=== PATIENT | male | born 1945 | race Caucasian/White ===

== ENCOUNTER 2016-04-18 00:30 | Emergency (ER) | payer MEDICARE, OTHER ==
[2016-04-18 00:40] VITALS: BP 142/77
[2016-04-18] MEDS ORDERED: Sodium Chloride 0.9% 10 ML Syringe FLUSH PRN (01:03)
[2016-04-18] MEDS ORDERED: Ondansetron 4 MG/2 ML SDV IVPUSH ONE (01:05)
[2016-04-18] MEDS ORDERED: Sodium Chloride 0.9% 1,000 ML IV ONE (01:05)
[2016-04-18] MEDS ORDERED: GI Cocktail Oral Solution 30 ML PO ONE (01:06)
[2016-04-18] MEDS ORDERED: Famotidine 20 MG Tab PO ONE (01:07)
[2016-04-18 01:45] LABS: BASOPHILS PERCENT AUTO 0.1 % (0.2-1.2); EOSINOPHILS PERCENT AUTO 0.1 % (0.0-4.0); HEMATOCRIT 41.6 % (40.0-52.0); HEMOGLOBIN 14.2 g/dL (14.0-18.0); LYMPHOCYTES PERCENT AUTO 4.3 % (25.0-50.0); MEAN CORPUSCULAR HGB CONC 34.1 g/dL (32.0-36.0); MEAN CORPUSCULAR VOLUME 90.8 fL (78.0-93.0); MONOCYTES PERCENT AUTO 5.3 % (2.0-11.0); RDW CV 13.2 % (10.0-15.0); RED BLOOD CELL COUNT 4.58 x10^6/uL (4.5-6.0)
[2016-04-18 02:01] LABS: PROTHROMBIN TIME 11.6 SEC (10.0-12.8)
[2016-04-18 02:03] LABS: NEUTROPHILS PERCENT AUTO 90.2 % (50.0-80.0)
[2016-04-18 02:16] LABS: A/G RATIO 0.86; ALBUMIN 3.2 g/dL (3.4-5.0); ALKALINE PHOSPHATASE 56 U/L (46-116); AMYLASE 30 U/L (25-115); BILIRUBIN TOTAL 0.5 mg/dL (0.2-1.0); CALCIUM 7.8 mg/dL (8.5-10.1); CHLORIDE,CL 97 mmol/L (98-107); CORRECTED CALCIUM 8.44 mg/dL (8.5-10.1); CREATININE 1.1 mg/dL (0.70-1.30); EST CRCL DRUG DOSING (CG) 61.76 mL/min; ESTIMATED GFR > 60; GLUCOSE RANDOM 114 mg/dL (74-106)
[2016-04-18 02:17] LABS: CKMB 0.8 ng/mL (0.0-3.6)
--- NOTE | 2016-04-18 03:34 | ER ---
Date of Service: 04/18/2016 SUBJECTIVE: The patient presents to the emergency room with complaints of burning sensation in his epigastrium, chest as well as vomiting and diarrhea. The patient states that he began experiencing diarrhea and vomiting over the past 24-48 hours. He states that his diarrhea has improved, but he began experiencing a burning sensation in his chest and abdomen. He states that he did try to take some Tums and drink some soda, but this did not help with his discomfort. The patient states that he has not noticed any blood in his stools. He has not noticed any dark or tarry stools. He states that he has experienced burning sensation in his chest and abdomen before secondary to what sounds like gastroesophageal reflux disease. He states that this has been alleviated with taking [id number] preparations for GERD such as Tums. The patient states that the sensation is worse when he is lying flat. He states that he has not recently traveled out of the country. He states that he has not been checking his temperature. PAST MEDICAL HISTORY: 1. Erectile dysfunction. 2. Hypertension. MEDICATIONS: 1. Levitra 20 mg daily. 2. Enalapril/hydrochlorothiazide 08/24.5. ALLERGIES: NKDA. REVIEW OF SYSTEMS: General: No fever or chills. HEENT: No sore throat, rhinorrhea, or congestion. Respiratory: No shortness of breath. Cardiac: Denies any substernal chest pain, but again is experiencing some burning sensation in his epigastrium and chest. GI: Please see history of present illness. Denies any melena, hematochezia, or hematemesis. : Denies any dysuria. MUSCULOSKELETAL: No myalgias or arthralgias. NEUROLOGIC: No fainting or blackouts. He states that he is somewhat lightheaded especially when he stands. PHYSICAL EXAMINATION: General: This is a 71-year-old male patient in no acute distress. Vital Signs: Blood pressure is 142/77, pulse rate is 100, temperature is 36.9, respiratory rate 16, O2 saturations 99%. Skin: Warm, pink, and dry. HEENT: Head is normocephalic, atraumatic. Eyes, PERRLA. Extraocular movements are intact. Mouth, oral mucosa is moist. No erythema or exudate noted in the hypopharynx. Neck: Supple. No masses. There is no lymphadenopathy. Lungs: Clear to auscultation. Heart: Regular rate and rhythm. Normal S1, S2. No S3, S4, clicks, or rubs. Unable to re produce pain with deep palpation of the chest. Abdomen: Soft, mildly tender to palpation of the epigastrium. There are no masses noted. There is no hepatosplenomegaly noted. Extremities: Without edema. Neurologic: He is alert and oriented, answers all questions appropriately. His speech is fluent. His gait is within normal limits. EKG: A 12-lead EKG was obtained showing a sinus rhythm without any acute ST or T-wave abnormalities. LABORATORY DATA: WBCs 11.4, hemoglobin is 14.2, platelets are 243. PT is 11.6, INR is 1.0. Chemistry; sodium is 134, potassium is 3.4, chloride is 97, bicarb is 25, BUN is 22, creatinine is 1.1. Creatinine clearance is 61.76. GFR is greater than 60. Glucose is 114, calcium is 7.8, corrected calcium is 8.44. Total bilirubin is 0.5. AST is 22, ALT is 14, alkaline phosphatase is 56, CK is 125, CK-MB is 0.8. Troponin is 0.00. Total protein is 6.9. Albumin is 3.2, globulin is 3.7, amylase is 30. Flat and upright abdominal series with 1 view chest x-ray was obtained. There was no evidence of any obvious acute pathology. He did have evidence of some scarring to his lungs consistent with a history of tobacco abuse, he is currently not smoking at this time. EMERGENCY ROOM COURSE: IV access was established. He was given Zofran 4 mg IV. He was given Pepcid 20 mg IV as well as a GI cocktail. He states that his pain was initially an 8 and he states that by the time he was being discharged, his pain was down to 1. He was also given a liter of normal saline. He remained stable in my care in the emergency room. ASSESSMENT: 1. Gastroenteritis. 2. Gastroesophageal reflux disease with esophagitis. PLAN: The patient will be discharged. I did start him on Zofran ODT 4 mg, 1 p.o. q.8 hours. Also advised him to begin taking Prilosec OTC 20 mg twice daily. I would like him to follow up in the clinic in the next 7-10 days. He is to return in the emergency room if he notices any blood in his vomit, any dark tarry stools, or if he is experiencing any increased discomfort, chest pain, shortness of breath, lightheadedness or if he is unable to keep down fluids. All questions were answered. MWK: 04/18/2016 02:50:44 MODL: 04/18/2016 03:25:04 /[id number]
== END 2016-04-18 02:45 | disposition home or self-care (01) ==
LOC: VM.ED 00:30
DX: K52.9 Noninfective gastroenteritis and colitis, unspecified (principal); K21.0 Gastro-esophageal reflux disease with esophagitis; I10 Essential (primary) hypertension; Z79.899 Other long term (current) drug therapy
CPT/HCPCS: 74022; 80053; 82150; 82550; 82553; 84484; 85025; 85610; 93005; 96361; 96374; 99284; A9270; J2405; J7030

== ENCOUNTER 2016-07-21 10:38 | Emergency (ER) | payer MEDICARE, OTHER ==
--- NOTE | 2016-07-21 11:58 | EDM.PDOC ---
ED HPI GENERAL MEDICAL PROBLEM - General Chief Complaint: General Stated Complaint: dizziness Time Seen by Provider: 07/21/16 11:15 Source of Information: Reports: Patient, Family, RN, RN notes reviewed History Limitations: Reports: No limitations - History of Present Illness INITIAL COMMENTS - FREE TEXT/NARRATIVE: Patient presents to the emergency room at [facility] complaining of dizziness. The patient states that the sudden onset of dizziness began one hour prior to presentation. The patient denies any positional complaints the patient has no history of syncope or near syncope. The patient has hypertension but has been well controlled. The patient denies any shortness of breath or chest pain. The patient denies any vertigo symptoms. Onset: today, sudden Onset Date: 07/21/16 Duration: Resolved prior to arrival Location: Reports: head - Related Data Allergies Allergy/AdvReac Type Severity Reaction Status Date / Time No Known Allergies Allergy Verified 07/21/16 10:58 Home Meds: Home Meds Tadalafil [Cialis] 20 mg PO DAILY PRN 08/12/14 [History] Vardenafil HCl [Levitra] 20 mg PO DAILY 04/18/16 [History] Enalapril/Hydrochlorothiazide [Enalapril-HCTZ 5-12.5 MG] 1 each PO DAILY [History] Past Medical History Cardiovascular History: Reports: Hypertension Oncologic (Cancer) History: Reports: Prostate Social & Family History - Tobacco Use Smoking Status *Q: Former Smoker Years of Tobacco use: 30 Used Tobacco, but Quit: Yes Second Hand Smoke Exposure: Yes - Alcohol Use Days Per Week of Alcohol Use: 0 - Recreational Drug Use Recreational Drug Use: No Drug Use in Last 12 Months: No ED ROS GENERAL - Review of Systems Review Of Systems: See Below Constitutional: Denies: fever, chills, weakness Respiratory: Denies: Shortness of Breath, Cough Cardiovascular: Denies: Chest pain, Palpitations GI/Abdominal: Denies: Abdominal pain, Nausea, Vomiting Skin: Reports: no symptoms Neurological: Reports: Dizziness. Denies: Headache, Numbness, Paresthesia, Tingling ED EXAM, GENERAL - Physical Exam Exam: See Below Exam Limited By: No limitations General Appearance: alert, no apparent distress Eye Exam: bilateral eye: EOMI, normal inspection, PERRL Ears: normal external exam, normal canal, hearing grossly normal, normal TMs Ear Exam: bilateral ear: TM normal Neck: supple Respiratory/Chest: no respiratory distress, lungs clear, normal breath sounds Cardiovascular: regular rate, rhythm GI/Abdominal: normal bowel sounds, soft, non tender Neurological: alert, oriented, normal cognition, no motor/sensory deficits Skin Exam: Warm, Dry, Intact, Normal color, No rash EKG INTERPRETATION EKG Date: 07/21/16 Time: 11:30 Rhythm: NSR Rate (beats/min): 48 [place]: normal P-wave: present QRS: normal ST-T: normal QT: normal MO/PQ Interval: 0.18 Comparison: NA - no prior EKG EKG Interpretation Comments: 1. Sinus Bradycardia Course - Vital Signs Last Recorded V/S: Last Vital Signs Temp 36.1 C 07/21/16 10:45 Pulse 61 07/21/16 11:42 Resp 12 07/21/16 11:42 BP 151/68 H 07/21/16 11:42 Pulse Ox 98 07/21/16 11:42 - Orders/Labs/Meds Orders: Active Orders 24 hr Category Date Time Status EKG 12 Lead [EKG Documentation Completion] [RC] STAT Care 07/21/16 11:29 Active Departure - Departure Time of Disposition: 11:56 Disposition: Home, Self-Care 01 Condition: good Clinical Impression: Dizziness Instructions: Dizziness Referrals: Richar Barnes MD [Primary Care Provider] - Forms: ED Department Discharge Additional Instructions: 1. Stay well hydrated and rest 2. Call Dr. Barnes on Saturday and see if you can get in - Problem List Review Problem List Initiated/Reviewed/Updated: Yes - My Orders Last 24 Hours: My Active Orders 07/21/16 11:29 EKG 12 Lead [EKG Documentation Completion] [RC] STAT - Assessment/Plan Last 24 Hours: My Active Orders 07/21/16 11:29 EKG 12 Lead [EKG Documentation Completion] [RC] STAT
== END 2016-07-21 12:00 | disposition home or self-care (01) ==
LOC: VM.ED 10:38
CPT/HCPCS: 93005; 99283-GF; 99284

== ENCOUNTER 2016-12-20 16:35 | Emergency (ER) | payer MEDICARE, OTHER ==
[2016-12-20] MEDS ORDERED: methylPREDNISolone Sodium Succinate 125 MG/2 ML SDV IM ONE (16:39)
[2016-12-20] MEDS ORDERED: diphenhydrAMINE 25 MG Cap PO ONE (16:39)
--- NOTE | 2016-12-20 16:49 | EDM.PDOC ---
ED HPI GENERAL MEDICAL PROBLEM - General Chief Complaint: Bite:Animal, Insect Stated Complaint: bee sting, vision changes Time Seen by Provider: 12/20/16 16:39 Source of Information: Reports: Patient, Family History Limitations: Reports: No Limitations - History of Present Illness INITIAL COMMENTS - FREE TEXT/NARRATIVE: Patient reports being stung on the left side of his neck by a wasp and immediately experiencing blurry vision with tingling to his hands bilaterally. Upon presentation, his eye complaints are nearly resolved, and the tingling is improving. Total time of approximately 15 minutes from sting to presentation to ER. No complaints of difficulty breathing, no SOB, no chest pain. No throat tightening. No other complaints. Onset: Today, Sudden Duration: Resolved Prior to Arrival Severity: Mild - Related Data Allergies Allergy/AdvReac Type Severity Reaction Status Date / Time No Known Allergies Allergy Verified 12/20/16 17:00 Home Meds: Home Meds Tadalafil [Cialis] 20 mg PO DAILY PRN 08/12/14 [History] Vardenafil HCl [Levitra] 20 mg PO DAILY 04/18/16 [History] Enalapril/Hydrochlorothiazide [Enalapril-HCTZ 5-12.5 MG] 1 each PO DAILY [History] Past Medical History Cardiovascular History: Reports: Hypertension Oncologic (Cancer) History: Reports: Prostate Social & Family History - Tobacco Use Smoking Status *Q: Former Smoker Years of Tobacco use: 30 Used Tobacco, but Quit: Yes Second Hand Smoke Exposure: Yes - Alcohol Use Days Per Week of Alcohol Use: 0 - Recreational Drug Use Recreational Drug Use: No Drug Use in Last 12 Months: No ED ROS GENERAL - Review of Systems Review Of Systems: See Below Constitutional: Reports: No Symptoms HEENT: Reports: Other (vision blurriness) Respiratory: Reports: No Symptoms Cardiovascular: Reports: No Symptoms Endocrine: Reports: No Symptoms GI/Abdominal: Reports: No Symptoms : Reports: No Symptoms Musculoskeletal: Reports: No Symptoms Skin: Reports: No Symptoms Neurological: Reports: Tingling (bilateral hand tingling) Psychiatric: Reports: No Symptoms Hematologic/Lymphatic: Reports: No Symptoms Immunologic: Reports: No Symptoms ED EXAM, ANIMAL BITE - Physical Exam Exam: See Below Exam Limited By: No Limitations General Appearance: Alert, WD/WN, Anxious, Mild Distress Eye Exam: Bilateral Eye: EOMI, PERRL Ears: Normal TMs Nose: Normal Inspection Throat/Mouth: Normal Inspection, Normal Oropharynx Head: Atraumatic, Normocephalic Neck: Normal Inspection Respiratory/Chest: No Respiratory Distress, Lungs Clear, Normal Breath Sounds, No Accessory Muscle Use, Chest Non-Tender Cardiovascular: Normal Peripheral Pulses, Regular Rate, Rhythm, No Edema, No Gallop, No Murmur Extremities: Normal Inspection, Normal Range of Motion, Non-Tender, Normal Capillary Refill Neurological: Alert, Oriented, CN II-XII Intact, Normal Cognition, Normal Gait, Normal Reflexes, No Motor/Sensory Deficits Psychiatric: Normal Affect, Anxious Skin Exam: Normal Color, Warm/Dry Lymphadenopathy: Bilateral: No Adenopathy Lymphatic: No Adenopathy Course - Orders/Labs/Meds Orders: Active Orders 24 hr Category Date Time Status BASIC METABOLIC PANEL,BMP [CHEM] Stat Lab 12/20/16 16:39 Ordered MAGNESIUM [CHEM] Stat Lab 12/20/16 16:39 Ordered diphenhydrAMINE [Benadryl] Med 12/20/16 16:39 Once 25 mg PO ONETIME ONE methylPREDNISolone Sod Succ [Solu-MEDROL] Med 12/20/16 16:39 Once 125 mg IM ONETIME ONE Departure - Departure Time of Disposition: 17:39 Disposition: Home, Self-Care 01 Condition: Good Clinical Impression: Bee sting reaction - Discharge Information Instructions: Anaphylactic Reaction, [id number], Bee, Wasp, or Hornet Sting Forms: ED Department Discharge Additional Instructions: You can take benadryl up to four times per day, if you want less drowsiness you can also try claritin or zyrtec. Drink plenty of water. Be aware the next time you are stung. Your reaction could be worse. Follow up with your primary provider as symptoms warrant. Please call us with any questions or concerns. - Problem List & Annotations (1) Bee sting reaction SNOMED Code(s): 683080353 Code(s): T63.441A - TOXIC EFFECT OF VENOM OF BEES, ACCIDENTAL, INIT Status : Acute Priority: Medium Current Visit: Yes Qualifiers: Encounter type: initial encounter Injury intent: undetermined intent Qualified Code(s): T63.444A - Toxic effect of venom of bees, undetermined, initial encounter - Problem List Review Problem List Initiated/Reviewed/Updated: Yes - My Orders Last 24 Hours: My Active Orders 12/20/16 16:39 BASIC METABOLIC PANEL,BMP [CHEM] Stat MAGNESIUM [CHEM] Stat diphenhydrAMINE [Benadryl] 25 mg PO ONETIME ONE methylPREDNISolone Sod Succ [Solu-MEDROL] 125 mg IM ONETIME ONE - Assessment/Plan Last 24 Hours: My Active Orders 12/20/16 16:39 BASIC METABOLIC PANEL,BMP [CHEM] Stat MAGNESIUM [CHEM] Stat diphenhydrAMINE [Benadryl] 25 mg PO ONETIME ONE methylPREDNISolone Sod Succ [Solu-MEDROL] 125 mg IM ONETIME ONE Assessment:: wasp sting Plan: You can take benadryl up to four times per day, if you want less drowsiness you can also try claritin or zyrtec. Drink plenty of water. Be aware the next time you are stung. Your reaction could be worse. Follow up with your primary provider as symptoms warrant. Please call us with any questions or concerns.
[2016-12-20 17:13] VITALS: BP 117/69
[2016-12-20 17:18] LABS: CHLORIDE,CL 100 mmol/L (98-107); SODIUM,NA 138 mmol/L (136-145)
[2016-12-20] MEDS ORDERED: Potassium Chloride 10 MEQ Tab.ER PO ONE (17:20)
[2016-12-20] MEDS ORDERED: Magnesium Chloride 64 MG Tab.ER PO ONE (17:22)
[2016-12-20] MEDS ORDERED: Potassium Chloride 20 MEQ Tab.ER PO ONE (17:33)
== END 2016-12-20 17:50 | disposition home or self-care (01) ==
LOC: VM.ED 16:35
DX: T63.441A Toxic effect of venom of bees, accidental (unintentional), initial encounter (principal); H53.8 Other visual disturbances; R20.2 Paresthesia of skin; I10 Essential (primary) hypertension; Z85.46 Personal history of malignant neoplasm of prostate; Z87.891 Personal history of nicotine dependence; Z79.899 Other long term (current) drug therapy
CPT/HCPCS: 36415; 80048; 83735; 96372; 99283; A9270; J2930

== ENCOUNTER 2017-01-25 17:16 | Emergency (ER) | payer MEDICARE, OTHER ==
[2017-01-25 17:45] VITALS: BP 121/52
--- NOTE | 2017-01-25 18:53 | EDM.PDOC ---
ED HPI GENERAL MEDICAL PROBLEM - General Chief Complaint: Laceration Time Seen by Provider: 01/25/17 17:35 Source of Information: Reports: Patient History Limitations: Reports: No Limitations - History of Present Illness INITIAL COMMENTS - FREE TEXT/NARRATIVE: Pt. 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 Pt. states that he had a tetanus update approx. 5 years ago. He denies any injury other than what is isolated to his L middle finger. Onset: Today Location: Reports: Upper Extremity, Left Severity: Mild - Related Data Allergies Allergy/AdvReac Type Severity Reaction Status Date / Time No Known Allergies Allergy Verified 01/25/17 17:48 Home Meds: Home Meds Tadalafil [Cialis] 20 mg PO DAILY PRN 08/12/14 [History] Vardenafil HCl [Levitra] 20 mg PO DAILY 04/18/16 [History] Enalapril/Hydrochlorothiazide [Enalapril-HCTZ 5-12.5 MG] 1 each PO DAILY [History] Past Medical History Cardiovascular History: Reports: Hypertension Oncologic (Cancer) History: Reports: Prostate - Past Surgical History GI Surgical History: Reports: Appendectomy Social & Family History - Tobacco Use Smoking Status *Q: Unknown Ever Smoked Years of Tobacco use: 30 Used Tobacco, but Quit: Yes Second Hand Smoke Exposure: Yes - Alcohol Use Days Per Week of Alcohol Use: 0 - Recreational Drug Use Recreational Drug Use: No Drug Use in Last 12 Months: No ED ROS GENERAL - Review of Systems Review Of Systems: See Below Constitutional: Reports: No Symptoms HEENT: Reports: No Symptoms Respiratory: Reports: No Symptoms Cardiovascular: Reports: No Symptoms Endocrine: Reports: No Symptoms GI/Abdominal: Reports: No Symptoms : Reports: No Symptoms Musculoskeletal: Reports: Other (laceration to tip of 3rd digit L hand) Skin: Reports: No Symptoms Neurological: Reports: No Symptoms Psychiatric: Reports: No Symptoms Hematologic/Lymphatic: Reports: No Symptoms Immunologic: Reports: No Symptoms ED EXAM, SKIN/RASH Exam: See Below General Appearance: Alert, No Apparent Distress Extremities: Other (2.8 cm. laceration to tip of 3rd digit L hand) ED SKIN PROCEDURES - Laceration/Wound Repair Right Middle Distal Finger Lac/Wound length In cm: 2.8 Appearance: Superficial Distal NVT: Neuro & Vascular Intact, No Tendon Injury Saline Irrigation (cc's): 1,000 (ml) Exploration/Debridement/Repair: No Foreign Material Found Closed with: Dermabond Tetanus Status Addressed: Yes Course - Vital Signs Last Recorded V/S: Last Vital Signs Temp 36.7 C 01/25/17 17:30 Pulse 88 01/25/17 17:30 Resp 14 01/25/17 17:30 BP 121/52 L 01/25/17 17:30 Pulse Ox 100 01/25/17 17:30 Departure - Departure Time of Disposition: 18:00 Disposition: Home, Self-Care 01 Condition: Good Clinical Impression: Finger laceration - Discharge Information Instructions: Tissue Adhesive Wound Care, Laceration Care, Adult Referrals: Richar Barnes MD [Primary Care Provider] - Forms: ED Department Discharge Additional Instructions: Home to rest. Keep area dry for 24 hours. Return if any redness, swelling, or discharge from the area. - Problem List & Annotations (1) Finger laceration SNOMED Code(s): 815751735 Code(s): S61.219A - LACERATION W/O FB OF UNSP FINGER W/O DAMAGE TO NAIL, INIT Status: Acute Qualifiers: Encounter type: initial encounter Finger: middle finger Damage to nail status: without damage Foreign body presence: without foreign body Laterality: left Qualified Code(s): S61.213A - Laceration without foreign body of left middle finger without damage to nail, initial encounter - Assessment/Plan Assessment:: 2.8 cm. superficial laceration to distal portion of 3rd digit L hand Plan: Keep dry for 24 hours. Keep open to air unless to anticipate the area getting dirty. Return to ER if redness, swelling, or discharge from the area.
== END 2017-01-25 18:03 | disposition home or self-care (01) ==
LOC: VM.ED 17:16
DX: S61.213A Laceration without foreign body of left middle finger without damage to nail, initial encounter (principal); I10 Essential (primary) hypertension; Z79.899 Other long term (current) drug therapy; Z90.49 Acquired absence of other specified parts of digestive tract; W31.89XA Contact with other specified machinery, initial encounter; Y99.0 Civilian activity done for income or pay
CPT/HCPCS: 12002; 99282; 99282-GF-25

== ENCOUNTER 2017-06-02 12:48 | Emergency (ER) | payer MEDICARE, OTHER ==
[2017-06-02 13:20] VITALS: BP 128/70
--- NOTE | 2017-06-02 13:26 | EDM.PDOC ---
ED HPI GENERAL MEDICAL PROBLEM - General Chief Complaint: Lower Extremity Injury/Pain Stated Complaint: KNEE Time Seen by Provider: 06/02/17 12:56 Source of Information: Reports: Patient, RN, RN Notes Reviewed History Limitations: Reports: No Limitations - History of Present Illness INITIAL COMMENTS - FREE TEXT/NARRATIVE: Patient presents the emergency room at [facility] complaining of right knee pain that has progressively gotten worse over the past 3 weeks. Patient denies any injury or trauma. The patient states the pain is located along the right lateral knee. The patient denies any trouble with ambulation. The patient denies any numbness tingling or paresthesia of the right lower extremity. The patient states he is able to ambulate normally. The patient denies any previous right knee surgeries. Otherwise no other concerns. Onset: Other (chronic) Duration: Chronic Right Knee Pain Score (Numeric/FACES): 2 - Related Data Allergies Allergy/AdvReac Type Severity Reaction Status Date / Time No Known Allergies Allergy Verified 06/02/17 13:12 Home Meds: Home Meds Tadalafil [Cialis] 20 mg PO DAILY PRN 08/12/14 [History] Vardenafil HCl [Levitra] 20 mg PO DAILY 04/18/16 [History] Enalapril/Hydrochlorothiazide [Enalapril-HCTZ 5-12.5 MG] 1 each PO DAILY [History] Past Medical History Cardiovascular History: Reports: Hypertension Oncologic (Cancer) History: Reports: Prostate - Past Surgical History GI Surgical History: Reports: Appendectomy Social & Family History - Tobacco Use Smoking Status *Q: Unknown Ever Smoked Years of Tobacco use: 30 Used Tobacco, but Quit: Yes Second Hand Smoke Exposure: Yes - Alcohol Use Days Per Week of Alcohol Use: 0 - Recreational Drug Use Recreational Drug Use: No Drug Use in Last 12 Months: No Review of Systems - Review of Systems Review Of Systems: See Below Constitutional: Denies: Chills, Fever Respiratory: Denies: Shortness of Breath, Cough Cardiovascular: Denies: Chest Pain, Palpitations Musculoskeletal: Reports: Joint Pain (Right knee) Skin: Reports: No Symptoms Neurological: Reports: No Symptoms. Denies: Dizziness, Headache, Numbness, Paresthesia, Tingling ED EXAM, GENERAL - Physical Exam Exam: See Below Exam Limited By: No Limitations General Appearance: Alert, No Apparent Distress Respiratory/Chest: No Respiratory Distress, Lungs Clear, Normal Breath Sounds Cardiovascular: Normal Peripheral Pulses, Regular Rate, Rhythm Peripheral Pulses: 2+: Radial (L), Radial (R) Extremities: Normal Inspection, Normal Range of Motion, Other (slight tenderness to palpation of right lateral knee; no obvious bone deformity; skin intact; no evidence of injury). No: Joint Swelling Neurological: Alert, Oriented Skin Exam: Warm, Dry, Intact, Normal Color, No Rash Course - Vital Signs Last Recorded V/S: Last Vital Signs Temp 36.5 C 06/02/17 13:00 Pulse 60 06/02/17 13:00 Resp 16 06/02/17 13:00 BP 128/70 06/02/17 13:00 Pulse Ox - Orders/Labs/Meds Orders: Active Orders 24 hr Category Date Time Status Knee 3V Rt [CR] Stat Exams 06/02/17 13:24 Taken - Radiology Interpretation Free Text/Narrative:: Right Knee: No evidence of fracture or dislocation See scanned report in EMR Departure - Departure Time of Disposition: 13:29 Disposition: Home, Self-Care 01 Condition: Good Clinical Impression: Right knee pain Qualifiers: Chronicity: chronic Qualified Code(s): M25.561 - Pain in right knee - Discharge Information Instructions: Knee Pain, Adult Referrals: Richar Barnes MD [Physician] - Forms: ED Department Discharge Additional Instructions: 1. Stay well hydrated and rest 2. XRay of right knee was normal 3. May alternate Tylenol/Advil as needed for pain 4. See Dr. Barnes for follow up 5. Call with any questions/concerns - Problem List Review Problem List Initiated/Reviewed/Updated: Yes - My Orders Last 24 Hours: My Active Orders 06/02/17 13:24 Knee 3V Rt [CR] Stat - Assessment/Plan Last 24 Hours: My Active Orders 06/02/17 13:24 Knee 3V Rt [CR] Stat
== END 2017-06-02 13:48 | disposition home or self-care (01) ==
LOC: VM.ED 12:48
DX: M25.561 Pain in right knee (principal); G89.29 Other chronic pain; I10 Essential (primary) hypertension; Z79.899 Other long term (current) drug therapy; Z87.891 Personal history of nicotine dependence
CPT/HCPCS: 73562-RT; 99283

== ENCOUNTER 2017-11-21 09:08 | Day surgery (SDC) | payer MEDICARE, OTHER ==
[2017-11-21] MEDS: Lactated Ringers 1,000 ML IV SCH (09:49)
[2017-11-21] MEDS ORDERED: Propofol 200 MG/20 ML SDV ONE ×2 (10:51→12:06)
[2017-11-21] MEDS ORDERED: fentaNYL 100 MCG/2 ML SDV ONE (10:51)
[2017-11-21 13:11] VITALS: BP 116/56
--- NOTE | 2017-11-22 07:50 | OR ---
SURGERY DATE: 11/21/2017. REFERRING PROVIDER: Dr. Barnes. PRE-OPERATIVE DIAGNOSIS: GERD. The patient is on Zantac over the counter once a day. POST-OPERATIVE DIAGNOSIS: About a 2 cm sliding type hiatal hernia present, otherwise normal appearing EGD. Antral biopsy taken x2 bites to check for H pylori and path. PROCEDURE: EGD with cold biopsy x1 site (antrum). SURGEON: Hemanth Stinson M.D. ANESTHESIA: Monitored anesthesia care. PROCEDURE DETAILS: Federico is a 72-year-old male, who was brought to the endoscope suite after discussion of risks and benefits (including but not limited to reaction to medication, bleeding, infection, aspiration, perforation). Informed consent was obtained for monitored anesthesia care and esophagogastroduodenoscopy along with possible biopsy and/or dilatation. Pre-procedure exam including oral cavity was unremarkable. IV, oxygen, and monitors were placed. The patient was placed in the left lateral position and sedation was administered. A bite block was placed gently and scope lightly lubricated and passed through the bite block and over the tongue. Hypopharynx and vocal cords were visualized and unremarkable. Scope was passed through the cricopharynx and into the esophagus. The scope was then passed through the distal esophagus and the GE junction was visualized and photographed. The GE junction was remarkable for about 2 cm sliding type hiatal hernia without any significant inflammation. Vocal cords were visualized and unremarkable. The scope was advanced into the stomach and gastric solis was suctioned. Pylorus was identified and intubated and then the scope was advanced to the third portion of the duodenum. The second and third portions of the duodenum were unremarkable. The duodenal bulb was visualized and unremarkable. The scope was brought back into the stomach. The pylorus and the antrum were unremarkable. Cold biopsy x2 bites was taken from this area to check for H. pylori and sent for path using cold forceps. The scope was retroflexed to visualize the angularis, fundus, body, and cardia. These were unremarkable. The stomach was desufflated of air and then the scope was slowly withdrawn, and the esophagus was closely visualized during withdrawal all the way into the posterior pharynx. In the upper esophagus there was an area of heterotopic type mucosa. Cold biopsy x2 bites was taken of this area and sent for path. The patient tolerated the procedure well and went to recovery in stable condition. The patient was monitored until at baseline status. Findings and discharge instructions were reviewed and the patient was discharged in good condition. COMPLICATIONS: None. TOTAL TIME: 7 minutes. ESTIMATED BLOOD LOSS: Less than 1 mL. RECOMMENDATIONS/FOLLOW-UP: The patient can remain on his Zantac once a day for control of reflux symptoms. We will await results of the antral biopsies to check for chronic gastritis and/or H pylori. I would like to kindly thank Dr. Knowles for this referral. DMB: 11/21/2017 12:39:01 MODL: 11/21/2017 17:56:05 /[id number]
--- NOTE | 2017-11-22 07:53 | OR ---
DATE OF SURGERY: 11/21/2017. REFERRING PROVIDER: Dr. Barnes. PRE-OPERATIVE DIAGNOSIS: History of colon polyps. The patient's last colonoscopy in 08/2014 revealed 3 adenomas. He had previously had 2 adenomas in 2009. POST-OPERATIVE DIAGNOSES: 1. Two small polyps, both removed using cold forceps. a. A 2 mm polyp at 65 cm. b. A 2 mm rectal polyp. 2. Moderate to severe diverticulosis, left greater than right. 3. Normal distal ilium. PROCEDURE: Colonoscopy with polypectomy x2 using cold forceps. SURGEON: Hemanth Stinson M.D. ANESTHESIA: Monitored anesthesia care. BOWEL PREP: Good. PROCEDURE DETAILS: Federico is a 72-year-old male, who was brought to the endoscopy suite after discussing risks and benefits of the procedure. Informed consent was obtained for conscious sedation and colonoscopy with or without biopsy and/or polypectomy. We also discussed possibility of missed lesions. Pre-procedure exam was unremarkable. IV, oxygen, and monitors were placed. The patient was placed in the left lateral decubitus position. Sedation was administered and a digital rectal exam was performed, which was unremarkable. No palpable prostate felt. Colonoscope was passed into the rectum and slowly advanced all the way to the cecum. Cecum was viewed and photographed. Ileocecal valve was intubated and distal ileum was normal in appearance. The colonoscope was slowly withdrawn and the mucosa was closed observed in a direct circumferential manner. The patient did have diffuse moderate to severe diverticulosis, left greater that right. The ascending colon was unremarkable. The transverse colon revealed 2 mm polyp at 65 cm, which was removed using cold forceps. The descending colon was unremarkable. The sigmoid colon was unremarkable except for the diverticulosis is noted as above. Rectal mucosa did reveal small 2 mm polyp, which was removed using cold forceps. There was some mild bleeding noted from this initially, which basically resolved within 30 to 60 seconds. Retroflexion was performed and rectal mucosa was unremarkable. Scope was removed. The patient tolerated the procedure well. The patient was monitored until that baseline status. Discharge instructions were reviewed and the patient was discharged in good condition. COMPLICATIONS: None. TOTAL TIME: 16 minutes. ESTIMATED BLOOD LOSS: About 1 mL. RECOMMENDATIONS/FOLLOW-UP: We will await results of path report to determine ideal followup interval. I would like to kindly thank Dr. Knowles for this referral. DMB: 11/21/2017 12:42:48 MODL: 11/21/2017 17:28:10 /[id number]
== END 2017-11-21 13:50 | disposition home or self-care (01) ==
LOC: VM.SDS 09:08
PROVIDERS: ATTEND Family Medicine
DX: Z12.11 Encounter for screening for malignant neoplasm of colon (principal); D12.3 Benign neoplasm of transverse colon; K62.1 Rectal polyp; K57.30 Diverticulosis of large intestine without perforation or abscess without bleeding; K21.0 Gastro-esophageal reflux disease with esophagitis; K29.50 Unspecified chronic gastritis without bleeding; K44.9 Diaphragmatic hernia without obstruction or gangrene; I10 Essential (primary) hypertension; H83.3X3 Noise effects on inner ear, bilateral; E78.5 Hyperlipidemia, unspecified; Z86.010 Personal history of colon polyps; Z87.891 Personal history of nicotine dependence; Z79.899 Other long term (current) drug therapy; Z91.030 Bee allergy status
CPT/HCPCS: 00811; J2704; J3010; J7120

== ENCOUNTER 2018-04-30 17:55 | Emergency (ER) | payer MEDICARE, OTHER ==
[2018-04-30 18:04] VITALS: BP 161/81
--- NOTE | 2018-04-30 19:04 | EDM.PDOC ---
ED HPI GENERAL MEDICAL PROBLEM - General Chief Complaint: ENT Problem Time Seen by Provider: 04/30/18 18:00 Source of Information: Reports: Patient History Limitations: Reports: No Limitations - History of Present Illness INITIAL COMMENTS - FREE TEXT/NARRATIVE: Pt. presents to ER with complaints of sore throat and globus sensation in the throat. Pt. states that she has had this issue in the past and has spoken with Dr. Barnes in the past about it. He did have a negative EGD in November. He has a history of GERD and hiatus hernia, currently taking Zantac. He states that he feels as if there is something in his throat and has pain on palpation to the lateral aspects of the larynx. Denies any fever or chills. No rashes. No nausea or vomiting. Occasionally he feels as though he cannot fully swallow, and states that he thinks food gets "hung up". He denies any swelling in his groin or axilla. Onset: Today Onset Date: 04/30/18 Location: Reports: Neck Quality: Reports: Ache, Burning Severity: Mild Associated Symptoms: Denies: Nausea/Vomiting, Rash, Shortness of Breath, Syncope - Related Data Allergies Allergy/AdvReac Type Severity Reaction Status Date / Time bee venom protein (honey bee) Allergy Severe Anaphylactic Verified 04/30/18 18: 07 Shock Home Meds: Home Meds Tadalafil [Cialis] 20 mg PO DAILY PRN 08/12/14 [History] Enalapril/Hydrochlorothiazide [Enalapril-HCTZ 5-12.5 MG] 1 each PO DAILY [History] Clobetasol [Clobetasol Propionate 0.05%] 30 gm TOP ASDIRECTED PRN 11/18/17 [ History] Desoximetasone [Topicort] 15 gm TP ASDIRECTED PRN 11/18/17 [History] EPINEPHrine [Epipen 2-Jeremias] 0.3 ml IM ASDIRECTED PRN 11/18/17 [History] Past Medical History HEENT History: Reports: Hard of Hearing, Impaired Vision Other HEENT History: hx traumatic subdural hematoma Cardiovascular History: Reports: High Cholesterol, Hypertension Other Cardiovascular History: episodic lightheadedness Other Respiratory History: former smoker Gastrointestinal History: Reports: Colon Polyp, GERD Other Musculoskeletal History: plantar faciitis Neurological History: Reports: None Other Psychiatric History: alcoholism in remission Other Endocrine/Metabolic History: impaired fasting glucose Hematologic History: Reports: None Immunologic History: Reports: None Oncologic (Cancer) History: Reports: Prostate Dermatologic History: Reports: Psoriasis - Past Surgical History Head Surgeries/Procedures: Reports: None GI Surgical History: Reports: Appendectomy, Colonoscopy Male Surgical History: Reports: Prostate Biopsy, Prostatectomy Other Male Surgeries/Procedures: erectile disfunction Oncologic Surgical History: Reports: Other (See Below) Other Oncologic Surgeries/Procedures: prostatectomy Social & Family History - Tobacco Use Smoking Status *Q: Unknown Ever Smoked ED ROS GENERAL - Review of Systems Review Of Systems: See Below Constitutional: Reports: No Symptoms HEENT: Reports: Other (see HPI) Respiratory: Reports: No Symptoms Cardiovascular: Reports: No Symptoms Endocrine: Reports: No Symptoms GI/Abdominal: Reports: Other (see HPI) : Reports: No Symptoms Musculoskeletal: Reports: No Symptoms Skin: Reports: No Symptoms Neurological: Reports: No Symptoms Psychiatric: Reports: No Symptoms Hematologic/Lymphatic: Reports: No Symptoms Immunologic: Reports: No Symptoms ED EXAM, GENERAL - Physical Exam Exam: See Below Exam Limited By: No Limitations General Appearance: Alert, WD/WN, No Apparent Distress Eye Exam: Bilateral Eye: EOMI, Normal Fundi, Normal Inspection, PERRL Nose: Normal Inspection, Normal Mucosa, No Blood Throat/Mouth: Normal Inspection, Normal Lips, Normal Teeth, Normal Gums, Normal Oropharynx, Normal Voice, No Airway Compromise Head: Atraumatic, Normocephalic Neck: Normal Inspection, Supple, Non-Tender, Full Range of Motion Respiratory/Chest: No Respiratory Distress, Lungs Clear, Normal Breath Sounds, No Accessory Muscle Use, Chest Non-Tender Cardiovascular: Normal Peripheral Pulses, Regular Rate, Rhythm, No Edema, No Gallop, No JVD, No Murmur, No Rub Course - Vital Signs Last Recorded V/S: Last Vital Signs Temp 36.1 C 04/30/18 18:00 Pulse 75 04/30/18 18:00 Resp 16 04/30/18 18:00 BP 161/81 H 04/30/18 18:00 Pulse Ox 97 04/30/18 18:00 - Orders/Labs/Meds Orders: Active Orders 24 hr Category Date Time Status CULTURE STREP A CONFIRMATION [] Stat Lab 04/30/18 18:11 Results STREP SCRN A RAPID W CULT CONF [] Stat Lab 04/30/18 18:11 Results Departure - Departure Time of Disposition: 18:30 Disposition: Home, Self-Care 01 Condition: Good Clinical Impression: Pharyngitis, Globus sensation, GERD (gastroesophageal reflux disease) - Discharge Information Instructions: Sore Throat, [id number] Referrals: Richar Barnes MD [Primary Care Provider] - Forms: ED Department Discharge Additional Instructions: No obvious infectious etiology identified. It sounds as though this has been going on for some time. Was counseled that GERD can cause sore throat, globus sensation, etc. Follow-up with Dr. Barnes if continuing to have symptoms. Your strep screen was negative and your recent upper endoscopy was normal as well. Return to ER if you have troubles breathing or swallowing. - My Orders Last 24 Hours: My Active Orders 04/30/18 18:11 CULTURE STREP A CONFIRMATION [RM] Stat STREP SCRN A RAPID W CULT CONF [RM] Stat - Assessment/Plan Last 24 Hours: My Active Orders 04/30/18 18:11 CULTURE STREP A CONFIRMATION [RM] Stat STREP SCRN A RAPID W CULT CONF [RM] Stat
== END 2018-04-30 18:37 | disposition home or self-care (01) ==
LOC: VM.ED 17:55
DX: J02.9 Acute pharyngitis, unspecified (principal); F45.8 Other somatoform disorders; K21.9 Gastro-esophageal reflux disease without esophagitis; I10 Essential (primary) hypertension; Z91.030 Bee allergy status; Z87.891 Personal history of nicotine dependence
CPT/HCPCS: 87081; 87880-QW; 99284

== ENCOUNTER 2018-07-26 13:18 | Emergency (ER) | payer MEDICARE, OTHER ==
[2018-07-26] MEDS ORDERED: Sodium Chloride 0.9% 10 ML Syringe FLUSH PRN (13:42)
[2018-07-26 14:35] LABS: ANION GAP 14.8 mmol/L (10-20); CHLORIDE,CL 100 mmol/L (98-107); SODIUM,NA 135 mmol/L (136-145)
--- NOTE | 2018-07-26 14:46 | CR ---
[id number] RAD/RAD Chest PA or AP 1V EXAM: SINGLE VIEW CHEST. INDICATION: DIZZINESS COMPARISON: CORRELATION IS MADE WITH THE EXAM OF AUGUST 31, 2012. FINDINGS: The lungs are clear but hyperaerated. The cardiomediastinal contour is stable. IMPRESSION: NO PNEUMONIA OR EDEMA. Andrae Goetz MD 07/26/18 [id number] Thank you for allowing us to participate in the care of your patient.
--- NOTE | 2018-07-26 15:03 | EDM.PDOC ---
ED HPI GENERAL MEDICAL PROBLEM - General Chief Complaint: Respiratory Problem Stated Complaint: dizziness Time Seen by Provider: 07/26/18 13:37 Source of Information: Reports: Patient History Limitations: Reports: No Limitations - History of Present Illness INITIAL COMMENTS - FREE TEXT/NARRATIVE: Patient describes feeling dizzy and having overall general weakness. He has no complaints of nausea, vomiting, blood in urine or stool. No chest pain, no shortness of breath, no abdominal pain. Prior history of prostate cancer which was treated and has had no new problems with remission. He has no history of PA or CVA. Surgical history also includes appendectomy. No speech or vision problems today. As stated above, some upper and lower extremity weakness but is bilateral. Onset: Today, Sudden Duration: Intermittent Location: Reports: Generalized - Related Data Allergies Allergy/AdvReac Type Severity Reaction Status Date / Time bee venom protein (honey bee) Allergy Severe Anaphylactic Verified 07/26/18 13: 31 Shock Home Meds: Home Meds Tadalafil [Cialis] 20 mg PO DAILY PRN 08/12/14 [History] Enalapril/Hydrochlorothiazide [Enalapril-HCTZ 5-12.5 MG] 1 each PO DAILY [History] Clobetasol [Clobetasol Propionate 0.05%] 30 gm TOP ASDIRECTED PRN 11/18/17 [ History] Desoximetasone [Topicort] 15 gm TP ASDIRECTED PRN 11/18/17 [History] EPINEPHrine [Epipen 2-Jeremias] 0.3 ml IM ASDIRECTED PRN 11/18/17 [History] Past Medical History HEENT History: Reports: Hard of Hearing, Impaired Vision Other HEENT History: hx traumatic subdural hematoma Cardiovascular History: Reports: High Cholesterol, Hypertension Other Cardiovascular History: episodic lightheadedness Other Respiratory History: former smoker Gastrointestinal History: Reports: Colon Polyp, GERD Other Musculoskeletal History: plantar faciitis Neurological History: Reports: None Other Psychiatric History: alcoholism in remission Other Endocrine/Metabolic History: impaired fasting glucose Hematologic History: Reports: None Immunologic History: Reports: None Oncologic (Cancer) History: Reports: Prostate Dermatologic History: Reports: Psoriasis - Past Surgical History Head Surgeries/Procedures: Reports: None GI Surgical History: Reports: Appendectomy, Colonoscopy Male Surgical History: Reports: Prostate Biopsy, Prostatectomy Other Male Surgeries/Procedures: erectile disfunction Oncologic Surgical History: Reports: Other (See Below) Other Oncologic Surgeries/Procedures: prostatectomy Social & Family History - Tobacco Use Smoking Status *Q: Never Smoker - Caffeine Use Caffeine Use: Reports: Coffee - Recreational Drug Use Recreational Drug Use: No ED ROS GENERAL - Review of Systems Review Of Systems: See Below Constitutional: Reports: Weakness HEENT: Reports: No Symptoms Respiratory: Reports: No Symptoms Cardiovascular: Reports: No Symptoms Endocrine: Reports: No Symptoms GI/Abdominal: Reports: No Symptoms : Reports: No Symptoms Musculoskeletal: Reports: No Symptoms Skin: Reports: No Symptoms Neurological: Reports: Dizziness, Weakness Psychiatric: Reports: No Symptoms Hematologic/Lymphatic: Reports: No Symptoms Immunologic: Reports: No Symptoms ED EXAM, GENERAL - Physical Exam Exam: See Below Exam Limited By: No Limitations General Appearance: Alert, WD/WN, No Apparent Distress Eye Exam: Bilateral Eye: EOMI, PERRL Ears: Normal TMs, Hearing Loss, Other (bilateral hearing aids) Ear Exam: Bilateral Ear: Auricle Normal, Canal Normal, TM normal Nose: Normal Inspection, Normal Mucosa, No Blood Throat/Mouth: Normal Inspection, Normal Lips, Normal Teeth, Normal Gums, Normal Oropharynx, Normal Voice, No Airway Compromise Head: Atraumatic, Normocephalic Neck: Normal Inspection, Supple, Non-Tender, Full Range of Motion Respiratory/Chest: No Respiratory Distress, Lungs Clear, Normal Breath Sounds, No Accessory Muscle Use, Chest Non-Tender Cardiovascular: Normal Peripheral Pulses, Regular Rate, Rhythm, No Edema, No Gallop, No JVD, No Murmur, No Rub Peripheral Pulses: 2+: Posterior Tibial (L), Posterior Tibial (R), Dorsalis Pedis (L), Dorsalis Pedis (R) GI/Abdominal: Normal Bowel Sounds, Soft, Non-Tender, No Organomegaly, No Distention, No Abnormal Bruit, No Mass Back Exam: Normal Inspection, Full Range of Motion, NT Extremities: Normal Inspection, Normal Range of Motion, Non-Tender, Normal Capillary Refill, No Pedal Edema Neurological: Alert, Oriented, CN II-XII Intact, Normal Cognition, Normal Gait, Normal Reflexes, No Motor/Sensory Deficits Psychiatric: Normal Affect, Normal Mood Skin Exam: Warm, Dry, Intact, Normal Color, No Rash Lymphatic: No Adenopathy Course - Vital Signs Last Recorded V/S: Last Vital Signs Temp 36.3 C 07/26/18 13:32 Pulse 65 07/26/18 14:38 Resp 16 07/26/18 14:38 BP 120/50 L 07/26/18 14:38 Pulse Ox 98 07/26/18 14:38 - Orders/Labs/Meds Orders: Active Orders 24 hr Category Date Time Status EKG Documentation Completion [RC] STAT Care 07/26/18 13:42 Ordered Sodium Chloride 0.9% [Saline Flush] Med 07/26/18 13:42 Ordered 10 ml FLUSH ASDIRECTED PRN Saline Lock Insert [OM.PC] Routine Oth 07/26/18 13:42 Ordered Medication Orders Sodium Chloride (Saline Flush) 10 ml FLUSH ASDIRECTED PRN PRN Reason: Keep Vein Open Labs: Laboratory Tests 07/26/18 07/26/18 07/26/18 Range/Units 13:59 13:59 13:59 WBC 9.3 (4.0-10.0) x10^3/uL RBC 4.45 L (4.5-6.0) x10^6/uL Hgb 13.9 L (14.0-18.0) g/dL Hct 41.3 (40.0-52.0) % MCV 92.8 (78.0-93.0) fL MCH 31.2 (26.0-32.0) pg MCHC 33.7 (32.0-36.0) g/dL RDW Coeff of Anna 13.0 (10.0-15.0) % Plt Count 242 (130-400) x10^3/uL Neut % (Auto) 64.8 (50.0-80.0) % Lymph % (Auto) 24.5 L (25.0-50.0) % [place] % (Auto) 8.0 (2.0-11.0) % Eos % (Auto) 2.1 (0.0-4.0) % Baso % (Auto) 0.6 (0.2-1.2) % PT 10.8 (10.0-12.8) SEC INR 1.0 L (2.0-3.5) D-Dimer, Quantitative 0.22 (<=0.58) mg/LFEU Sodium 135 L (136-145) mmol/L Potassium 3.8 (3.5-5.1) mmol/L Chloride 100 (98-107) mmol/L Carbon Dioxide 24 (21-32) mmol/L Anion Gap 14.8 (10-20) mmol/L BUN 22 H (7-18) mg/dL Creatinine 1.4 H (0.70-1.30) mg/dL Est Cr Clr Drug Dosing 47.07 mL/min Estimated GFR (MDRD) 49 Glucose 136 H (74-106) mg/dL Calcium 9.4 (8.5-10.1) mg/dL Corrected Calcium 10.04 D (8.5-10.1) mg/dL Phosphorus 2.5 L (2.6-4.7) mg/dL Magnesium 1.7 L (1.8-2.4) mg/dL Total Bilirubin 0.5 (0.2-1.0) mg/dL AST 15 (15-37) U/L ALT 10 L (16-63) U/L Alkaline Phosphatase 65 (46-116) U/L Troponin I < 0.017 (<=0.056) ng/mL NT-Pro-B Natriuret Pep 119 (<=450) pg/mL Total Protein 7.5 (6.4-8.2) g/dL Albumin 3.2 L (3.4-5.0) g/dL Globulin 4.3 Albumin/Globulin Ratio 0.74 TSH, Ultra Sensitive 2.381 (0.358-3.74) uIU/mL Urine Color (YELLOW) Urine Appearance (CLEAR) Urine pH (5.0-8.0) Ur Specific [place] Urine Protein (NEGATIVE) mg/dL Urine Glucose (UA) (NEGATIVE) mg/dL Urine Ketones (NEGATIVE) mg/dL Urine Occult Blood (NEGATIVE) Urine Nitrite (NEGATIVE) Urine Bilirubin (NEGATIVE) Urine Urobilinogen (0.2) EU/dL Ur Leukocyte Esterase (NEGATIVE) Urine RBC (NOT SEEN) /HPF Urine WBC (NOT SEEN) /HPF Ur Squamous Epith Cells (NEGATIVE) /HPF Urine Bacteria (NEGATIVE) /HPF Urine Mucus (NEGATIVE) /LPF 07/26/18 Range/Units 14:43 WBC (4.0-10.0) x10^3/uL RBC (4.5-6.0) x10^6/uL Hgb (14.0-18.0) g/dL Hct (40.0-52.0) % MCV (78.0-93.0) fL MCH (26.0-32.0) pg MCHC (32.0-36.0) g/dL RDW Coeff of Anna (10.0-15.0) % Plt Count (130-400) x10^3/uL Neut % (Auto) (50.0-80.0) % Lymph % (Auto) (25.0-50.0) % [place] % (Auto) (2.0-11.0) % Eos % (Auto) (0.0-4.0) % Baso % (Auto) (0.2-1.2) % PT (10.0-12.8) SEC INR (2.0-3.5) D-Dimer, Quantitative (<=0.58) mg/LFEU Sodium (136-145) mmol/L Potassium (3.5-5.1) mmol/L Chloride (98-107) mmol/L Carbon Dioxide (21-32) mmol/L Anion Gap (10-20) mmol/L BUN (7-18) mg/dL Creatinine (0.70-1.30) mg/dL Est Cr Clr Drug Dosing mL/min Estimated GFR (MDRD) Glucose (74-106) mg/dL Calcium (8.5-10.1) mg/dL Corrected Calcium (8.5-10.1) mg/dL Phosphorus (2.6-4.7) mg/dL Magnesium (1.8-2.4) mg/dL Total Bilirubin (0.2-1.0) mg/dL AST (15-37) U/L ALT (16-63) U/L Alkaline Phosphatase (46-116) U/L Troponin I (<=0.056) ng/mL NT-Pro-B Natriuret Pep (<=450) pg/mL Total Protein (6.4-8.2) g/dL Albumin (3.4-5.0) g/dL Globulin Albumin/Globulin Ratio TSH, Ultra Sensitive (0.358-3.74) uIU/mL Urine Color Yellow (YELLOW) Urine Appearance Clear (CLEAR) Urine pH 7.5 (5.0-8.0) Ur Specific [place] 1.015 Urine Protein Negative (NEGATIVE) mg/dL Urine Glucose (UA) Negative (NEGATIVE) mg/dL Urine Ketones Negative (NEGATIVE) mg/dL Urine Occult Blood Trace-lysed H (NEGATIVE) Urine Nitrite Negative (NEGATIVE) Urine Bilirubin Negative (NEGATIVE) Urine Urobilinogen 0.2 (0.2) EU/dL Ur Leukocyte Esterase Negative (NEGATIVE) Urine RBC 0-5 (NOT SEEN) /HPF Urine WBC 0-5 (NOT SEEN) /HPF Ur Squamous Epith Cells Not seen (NEGATIVE) /HPF Urine Bacteria Not seen (NEGATIVE) /HPF Urine Mucus Not seen (NEGATIVE) /LPF Meds: Medications Generic Name Dose Route Start Last Admin Trade Name Freq PRN Reason Stop Dose Admin Sodium Chloride 10 ml 07/26/18 13:42 Saline Flush FLUSH ASDIRECTED PRN Keep Vein Open Departure - Departure Time of Disposition: 15:52 Disposition: Home, Self-Care 01 Condition: Good Clinical Impression: Dehydration symptoms - Discharge Information *PRESCRIPTION DRUG MONITORING PROGRAM REVIEWED*: Not Applicable *COPY OF PRESCRIPTION DRUG MONITORING REPORT IN PATIENT SHANTANU: Not Applicable Instructions: Dehydration, Elderly, [id number] Additional Instructions: Plan 1. Stay well hydrated 2. Follow up with Dr. Barnes to see if he would like any additional testing done such as an echocardiogram or stress test 3. All labwork and imaging today was grossly normal and did not contribute to your feelings of dizziness and overall weakness 4. Please call if you have any further questions or concerns - Problem List & Annotations (1) Dehydration symptoms SNOMED Code(s): 8002179 Code(s): R63.8 - OTHER SYMPTOMS AND SIGNS CONCERNING FOOD AND FLUID INTAKE Status: Acute Priority: Low Current Visit: Yes - Problem List Review Problem List Initiated/Reviewed/Updated: Yes - My Orders Last 24 Hours: My Active Orders 07/26/18 13:42 EKG Documentation Completion [RC] STAT Sodium Chloride 0.9% [Saline Flush] 10 ml FLUSH ASDIRECTED PRN Saline Lock Insert [OM.PC] Routine - Assessment/Plan Last 24 Hours: My Active Orders 07/26/18 13:42 EKG Documentation Completion [RC] STAT Sodium Chloride 0.9% [Saline Flush] 10 ml FLUSH ASDIRECTED PRN Saline Lock Insert [OM.PC] Routine Assessment:: dehydration Plan: Plan 1. Stay well hydrated 2. Follow up with Dr. Barnes to see if he would like any additional testing done such as an echocardiogram or stress test 3. All labwork and imaging today was grossly normal and did not contribute to your feelings of dizziness and overall weakness 4. Please call if you have any further questions or concerns
[2018-07-26] MEDS ORDERED: Sodium Chloride 0.9% 1,000 ML IV ONE (15:07)
[2018-07-26 15:57] VITALS: BP 132/62
== END 2018-07-26 16:00 | disposition home or self-care (01) ==
LOC: VM.ED 13:18
DX: E86.0 Dehydration (principal); E78.00 Pure hypercholesterolemia, unspecified; I10 Essential (primary) hypertension; Z91.030 Bee allergy status; Z79.899 Other long term (current) drug therapy
CPT/HCPCS: 36415; 71045; 80053; 81001; 83735; 83880; 84100; 84443; 84484; 85025; 85379; 85610; 93005; 96365; 99284; J7030; 99283-GF

== ENCOUNTER 2019-01-02 18:28 | Emergency (ER) | payer MEDICARE, OTHER ==
[2019-01-02 19:29] VITALS: BP 125/63; PULSE 62
--- NOTE | 2019-01-05 14:10 | EDM.PDOC ---
ED HPI GENERAL MEDICAL PROBLEM - General Chief Complaint: Skin Complaint Stated Complaint: LACERATION TO LOWER R ARM Time Seen by Provider: 01/02/19 19:30 Source of Information: Reports: Patient History Limitations: Reports: No Limitations - History of Present Illness INITIAL COMMENTS - FREE TEXT/NARRATIVE: PtDavid presents to ER via private vehicle. He states that he scraped his R forearm [place] [employer]. His tetanus was updated in 2016. He states that his arm was caught in the gate briefly but the only pain he is experiencing is to the superficial area of the skin tear. No injury to the musculature or joints. No numbness/tingling in extremity. Onset: Today Onset Date: 01/02/19 Location: Reports: Upper Extremity, Right Severity: Mild - Related Data Allergies Allergy/AdvReac Type Severity Reaction Status Date / Time bee venom protein (honey bee) Allergy Severe Anaphylactic Verified 01/02/19 19: 23 Shock Home Meds: Home Meds Tadalafil [Cialis] 20 mg PO DAILY PRN 08/12/14 [History] Enalapril/Hydrochlorothiazide [Enalapril-HCTZ 5-12.5 MG] 1 each PO DAILY [History] Clobetasol [Clobetasol Propionate 0.05%] 30 gm TOP ASDIRECTED PRN 11/18/17 [ History] Desoximetasone [Topicort] 15 gm TP ASDIRECTED PRN 11/18/17 [History] EPINEPHrine [Epipen 2-Jeremias] 0.3 ml IM ASDIRECTED PRN 11/18/17 [History] Past Medical History HEENT History: Reports: Hard of Hearing, Impaired Vision Other HEENT History: hx traumatic subdural hematoma Cardiovascular History: Reports: High Cholesterol, Hypertension Other Cardiovascular History: episodic lightheadedness Other Respiratory History: former smoker Gastrointestinal History: Reports: Colon Polyp, GERD Other Musculoskeletal History: plantar faciitis Neurological History: Reports: None Other Psychiatric History: alcoholism in remission Other Endocrine/Metabolic History: impaired fasting glucose Hematologic History: Reports: None Immunologic History: Reports: None Oncologic (Cancer) History: Reports: Prostate Dermatologic History: Reports: Psoriasis - Past Surgical History Head Surgeries/Procedures: Reports: None GI Surgical History: Reports: Appendectomy, Colonoscopy Male Surgical History: Reports: Prostate Biopsy, Prostatectomy Other Male Surgeries/Procedures: erectile disfunction Oncologic Surgical History: Reports: Other (See Below) Other Oncologic Surgeries/Procedures: prostatectomy Social & Family History - Tobacco Use Smoking Status *Q: Former Smoker Used Tobacco, but Quit: Yes Month/Year Tobacco Last Used: 2002 - Caffeine Use Caffeine Use: Reports: Coffee ED ROS GENERAL - Review of Systems Review Of Systems: See Below Constitutional: Reports: No Symptoms HEENT: Reports: No Symptoms Respiratory: Reports: No Symptoms Cardiovascular: Reports: No Symptoms Endocrine: Reports: No Symptoms GI/Abdominal: Reports: No Symptoms : Reports: No Symptoms Musculoskeletal: Reports: Other (see above) Skin: Reports: No Symptoms Neurological: Reports: No Symptoms Psychiatric: Reports: No Symptoms Hematologic/Lymphatic: Reports: No Symptoms Immunologic: Reports: No Symptoms ED EXAM, GENERAL - Physical Exam Exam: See Below Exam Limited By: No Limitations General Appearance: Alert, WD/WN, No Apparent Distress Extremities: Normal Range of Motion, Normal Capillary Refill, Other ( superficial pain to R forarm. 3x7 cm skin tear with small area of devitalized tissue noted. It is very superficial. No hematoma noted. No crepitus to underlying structures. ROM of elbow and wrist are WNL.) ED GENERAL MEDICAL PROCEDURES - Laceration/Wound Repair Right Dorsal Arm Appearance: Superficial Distal NVT: Neuro & Vascular Intact Skin Prep: Chlorhexidine (Hibiciens), Saline Saline irrigation (cc's): 1,000 Progress/Comments: Small devitalized area of tissue was excised after the skin tear was thoroughly cleansed with normal saline and chlorhexidine. Course - Vital Signs Last Recorded V/S: Last Vital Signs Temp 36.6 C 01/02/19 19:24 Pulse 62 01/02/19 19:24 Resp 18 01/02/19 19:24 BP 125/63 01/02/19 19:24 Pulse Ox 99 01/02/19 19:24 Departure - Departure Time of Disposition: 20:00 Disposition: Home, Self-Care 01 Clinical Impression: Skin tear of forearm without complication - Discharge Information Instructions: Skin Tear Care Referrals: Richar Barnes MD [Primary Care Provider] - Forms: ED Department Discharge Additional Instructions: Change dressing daily. If you do not anticipate the area getting dirty, keep open to the air as much as possible. Your tetanus is up to date (2012) Return if there is any redness, swelling, or discharge from the area. - Problem List Review Problem List Initiated/Reviewed/Updated: Yes - Assessment/Plan Plan: Change dressing daily. If you do not anticipate the area getting dirty, keep open to the air as much as possible. Your tetanus is up to date (2012) Return if there is any redness, swelling, or discharge from the area.
== END 2019-01-02 19:47 | disposition home or self-care (01) ==
LOC: VM.ED 18:28
DX: S51.811A Laceration without foreign body of right forearm, initial encounter (principal); I10 Essential (primary) hypertension; Z79.899 Other long term (current) drug therapy; Z90.79 Acquired absence of other genital organ(s); Z87.891 Personal history of nicotine dependence; Z91.030 Bee allergy status; Z90.49 Acquired absence of other specified parts of digestive tract; W26.8XXA Contact with other sharp object(s), not elsewhere classified, initial encounter
CPT/HCPCS: 99282; 99283-GF

== ENCOUNTER 2019-06-01 09:37 | Emergency (ER) | payer MEDICARE, OTHER ==
[2019-06-01] MEDS: Sodium Chloride 0.9% 1,000 ML IV ONE (10:16)
[2019-06-01 10:40] VITALS: BP 153/83; PULSE 87
[2019-06-01 10:40] LABS: CHLORIDE,CL 103 mmol/L (98-107); SODIUM,NA 137 mmol/L (136-145)
[2019-06-01 10:43] LABS: ANION GAP 11.6 mmol/L (10-20)
--- NOTE | 2019-06-01 11:16 | CT ---
[id number] CT/CT Head WO IV EXAM: CT Head WO IV CLINICAL DATA: LIGHTHEADEDNESS,NEAR SYNCOPE. COMPARISON STUDY: None FINDINGS: No intracranial hemorrhage, extra-axial fluid collection, mass, or acute ischemia. Generalized parenchymal atrophy with scattered areas of nonspecific white matter disease, commonly seen as sequela of chronic microvascular ischemia. Postsurgical changes following left frontal parietal craniotomy. Soft tissues are unremarkable. Partial opacification of the right maxillary sinus. No evidence of aggressive sinusitis. Remaining paranasal sinuses and mastoid air cells are well aerated and clear.. IMPRESSION: No acute intracranial findings. Nasim Peck DO 06/01/19 1115 Thank you for allowing us to participate in the care of your patient.
--- NOTE | 2019-06-01 12:44 | EDM.PDOC ---
ED HPI GENERAL MEDICAL PROBLEM - General Chief Complaint: Syncope Stated Complaint: LIGHT HEADED Time Seen by Provider: 06/01/19 09:40 Source of Information: Reports: Patient History Limitations: Reports: No Limitations - History of Present Illness INITIAL COMMENTS - FREE TEXT/NARRATIVE: Patient presents to the ER with complaints of lightheadedness and pre syncope. Patient states he was getting ready in the bathroom when he suddenly felt faint , light headed. Patient states he felt weakness in his arms and had visual changes that he could not describe. Patient denies syncope, losing consciousness , falling, or injuries. Patient denies fever, chills, myalgias, rash, rhinorrhea , cough, abdominal pain or headaches. Patient denies palpitations, chest pain, edema, or cardiac history. Patient states he has had symptoms like this before and it was due to dehydration, Patient also states he was told by his PCP that he had borderline elevated kidney function. Onset: Today Onset Date: 06/01/19 Onset Time: 08:00 Duration: Improving Location: Reports: Head Quality: Reports: Other (lightheadedness) Severity: Mild Improves with: Reports: Rest Worsens with: Reports: None Associated Symptoms: Reports: Weakness (in bilateral arms during episode), Other (visual changes) - Related Data Allergies Allergy/AdvReac Type Severity Reaction Status Date / Time bee venom protein (honey bee) Allergy Severe Anaphylactic Verified 06/01/19 10: 25 Shock Home Meds: Home Meds tadalafiL [Cialis] 20 mg PO DAILY PRN 08/12/14 [History] Enalapril/Hydrochlorothiazide [Enalapril-HCTZ 5-12.5 MG] 1 each PO DAILY [History] Clobetasol [Clobetasol Propionate 0.05%] 30 gm TOP ASDIRECTED PRN 11/18/17 [ History] Desoximetasone [Topicort] 15 gm TP ASDIRECTED PRN 11/18/17 [History] EPINEPHrine [Epipen 2-Jeremias] 0.3 ml IM ASDIRECTED PRN 11/18/17 [History] Past Medical History HEENT History: Reports: Hard of Hearing, Impaired Vision Other HEENT History: hx traumatic subdural hematoma Cardiovascular History: Reports: High Cholesterol, Hypertension Other Cardiovascular History: episodic lightheadedness Other Respiratory History: former smoker Gastrointestinal History: Reports: Colon Polyp, GERD Other Musculoskeletal History: plantar faciitis Neurological History: Reports: None Other Psychiatric History: alcoholism in remission Other Endocrine/Metabolic History: impaired fasting glucose Hematologic History: Reports: None Immunologic History: Reports: None Oncologic (Cancer) History: Reports: Prostate Dermatologic History: Reports: Psoriasis - Past Surgical History Head Surgeries/Procedures: Reports: None GI Surgical History: Reports: Appendectomy, Colonoscopy Male Surgical History: Reports: Prostate Biopsy, Prostatectomy Other Male Surgeries/Procedures: erectile disfunction Oncologic Surgical History: Reports: Other (See Below) Other Oncologic Surgeries/Procedures: prostatectomy Social & Family History - Tobacco Use Smoking Status *Q: Unknown Ever Smoked - Caffeine Use Caffeine Use: Reports: Coffee - Recreational Drug Use Recreational Drug Use: No ED ROS GENERAL - Review of Systems Review Of Systems: See Below Constitutional: Reports: Weakness, Fatigue. Denies: Fever, Chills, Malaise, Night Sweats, Diaphoresis, Decreased Appetite HEENT: Reports: Glasses, Vision Change. Denies: Ear Pain, Eye Discharge, Sinus Problem, Throat Pain, Vertigo Respiratory: Reports: No Symptoms. Denies: Shortness of Breath, Wheezing, Pleuritic Chest Pain, Cough, Sputum Cardiovascular: Reports: No Symptoms, Lightheadedness. Denies: Chest Pain, Dyspnea on Exertion, Edema, Palpitations, Syncope Endocrine: Reports: No Symptoms GI/Abdominal: Reports: No Symptoms. Denies: Abdominal Pain, Black Stool, Constipation, Diarrhea, Nausea, Vomiting : Reports: No Symptoms Musculoskeletal: Reports: No Symptoms Skin: Reports: No Symptoms. Denies: Cyanosis, Jaundice, Pallor, Dryness, Rash, Change in Color Neurological: Reports: No Symptoms. Denies: Confusion, Headache, Numbness, Paresthesia, Syncope, Tingling, Weakness Psychiatric: Reports: No Symptoms Hematologic/Lymphatic: Reports: No Symptoms Immunologic: Reports: No Symptoms ED EXAM, GENERAL - Physical Exam Exam: See Below Exam Limited By: No Limitations General Appearance: Alert, WD/WN, No Apparent Distress Eye Exam: Bilateral Eye: EOMI, PERRL Ears: Normal External Exam, Hearing Grossly Normal Ear Exam: Bilateral Ear: Auricle Normal Nose: Normal Inspection, Normal Mucosa, No Blood Throat/Mouth: Normal Inspection Head: Atraumatic, Normocephalic Neck: Normal Inspection, Supple, Non-Tender, Full Range of Motion Respiratory/Chest: No Respiratory Distress, Lungs Clear, Normal Breath Sounds, No Accessory Muscle Use, Chest Non-Tender Cardiovascular: Normal Peripheral Pulses, Regular Rate, Rhythm, No Edema, No JVD , No Murmur Peripheral Pulses: 2+: Radial (L), Radial (R) GI/Abdominal: Normal Bowel Sounds, Soft, Non-Tender, No Distention, No Mass (Male) Exam: Deferred Rectal (Males) Exam: Deferred Back Exam: Normal Inspection, Full Range of Motion Extremities: Normal Inspection, Normal Range of Motion, No Pedal Edema, Normal Capillary Refill Neurological: Alert, Oriented, Normal Reflexes Psychiatric: Normal Affect, Normal Mood Skin Exam: Warm, Dry, Intact, Normal Color, No Rash Lymphatic: No Adenopathy EKG INTERPRETATION EKG Date: 06/01/19 Rhythm: NSR Course - Vital Signs Last Recorded V/S: Last Vital Signs Temp 36.9 C 06/01/19 09:50 Pulse 87 06/01/19 09:50 Resp 16 06/01/19 09:50 BP 153/83 H 06/01/19 09:50 Pulse Ox 98 06/01/19 09:50 - Orders/Labs/Meds Orders: Active Orders 24 hr Category Date Time Status EKG Documentation Completion [RC] STAT Care 06/01/19 10:06 Active Labs: Laboratory Tests 06/01/19 06/01/19 06/01/19 Range/Units 09:58 09:58 09:58 WBC 6.6 (4.0-10.0) x10^3/uL RBC 4.69 (4.5-6.0) x10^6/uL Hgb 14.8 (14.0-18.0) g/dL Hct 43.7 (40.0-52.0) % MCV 93.2 H (78.0-93.0) fL MCH 31.6 (26.0-32.0) pg MCHC 33.9 (32.0-36.0) g/dL RDW Coeff of Anna 12.7 (10.0-15.0) % Plt Count 237 (130-400) x10^3/uL Neut % (Auto) 59.4 (50.0-80.0) % Lymph % (Auto) 30.4 (25.0-50.0) % [place] % (Auto) 9.1 (2.0-11.0) % Eos % (Auto) 0.8 (0.0-4.0) % Baso % (Auto) 0.3 (0.2-1.2) % PT 11.0 (10.0-12.8) SEC INR 1.0 L (2.0-3.5) Sodium 137 (136-145) mmol/L Potassium 3.6 (3.5-5.1) mmol/L Chloride 103 (98-107) mmol/L Carbon Dioxide 26 (21-32) mmol/L Anion Gap 11.6 (10-20) mmol/L BUN 26 H (7-18) mg/dL Creatinine 1.5 H (0.70-1.30) mg/dL Est Cr Clr Drug Dosing 43.26 mL/min Estimated GFR (MDRD) 46 Glucose 148 H (74-106) mg/dL Calcium 9.2 (8.5-10.1) mg/dL Corrected Calcium 9.68 (8.5-10.1) mg/dL Magnesium 1.6 L (1.8-2.4) mg/dL Total Bilirubin 0.6 (0.2-1.0) mg/dL AST 14 L (15-37) U/L ALT 14 L (16-63) U/L Alkaline Phosphatase 55 (46-116) U/L Troponin I < 0.017 (<=0.056) ng/mL C-Reactive Protein < 0.2 (<=0.9) mg/dL Total Protein 7.5 (6.4-8.2) g/dL Albumin 3.4 (3.4-5.0) g/dL Globulin 4.1 Albumin/Globulin Ratio 0.83 TSH, Ultra Sensitive 2.618 (0.358-3.74) uIU/mL Meds: Medications Discontinued Medications Generic Name Dose Route Start Last Admin Trade Name Freq PRN Reason Stop Dose Admin Sodium Chloride 1,000 mls @ 1,000 mls/hr 06/01/19 10:07 06/01/19 10:16 Normal Saline IV 06/01/19 11:06 1,000 mls/hr .BOLUS ONE Administration Departure - Departure Time of Disposition: 11:50 Disposition: Home, Self-Care 01 Condition: Good Clinical Impression: Dehydration - Discharge Information Instructions: Dehydration, Adult, [id number], Rehydration, Adult Referrals: Richar Barnes MD [Primary Care Provider] - Forms: ED Department Discharge Additional Instructions: Home to rest. Increase intake of fluids. Return to ER if you have any chest pain, shortness of breath, difficulty with speech or walking. Recheck in clinic in 7-10 days. If you are feeling better, you can wait until your regular appointment in June. Sepsis Event Note - Evaluation Sepsis Screening Result: No Definite Risk - Focused Exam Vital Signs: Vital Signs Temp Pulse Resp BP Pulse Ox 06/01/19 09:50 36.9 C 87 16 153/83 H 98 Date Exam was Performed: 06/01/19 Time Exam was Performed: 16:07 - My Orders Last 24 Hours: My Active Orders 06/01/19 10:06 EKG Documentation Completion [RC] STAT - Assessment/Plan Last 24 Hours: My Active Orders 06/01/19 10:06 EKG Documentation Completion [RC] STAT Plan: Home to rest. Increase intake of fluids. Return to ER if you have any chest pain, shortness of breath, difficulty with speech or walking. Recheck in clinic in 7-10 days. If you are feeling better, you can wait until your regular appointment in June.
== END 2019-06-01 11:50 | disposition home or self-care (01) ==
LOC: VM.ED 09:37
DX: E86.0 Dehydration (principal); I10 Essential (primary) hypertension; Z91.030 Bee allergy status; Z87.891 Personal history of nicotine dependence
CPT/HCPCS: 70450; 80053; 83735; 84443; 84484; 85025; 85610; 86140; 93005; 93010; 96360; 99284-25; 99284-GF; J7030

== ENCOUNTER 2019-06-08 16:54 | Emergency (ER) | payer MEDICARE, OTHER ==
[2019-06-08] MEDS ORDERED: Sodium Chloride 0.9% 10 ML Syringe FLUSH PRN (17:15)
[2019-06-08 18:09] LABS: CHLORIDE,CL 103 mmol/L (98-107); SODIUM,NA 139 mmol/L (136-145)
--- NOTE | 2019-06-08 20:09 | CT ---
[id number] CT/CTA Head Exam: CTA Head Clinical Data: NEUROLOGIC DEFICIT COMPARISON: CORRELATION IS MADE WITH THE EXAM OF JUNE 01, 2019 FINDINGS: There is approximate 50% stenosis of the proximal cervical right internal carotid There is less than 50% stenosis of proximal cervical left internal carotid There is no intracranial "LVO" lesion The dural sinuses demonstrate normal enhancement Craniectomy changes are seen on the left IMPRESSION: LESS THAN 50% STENOSIS OF CERVICAL RIGHT INTERNAL CAROTID NO INTRACRANIAL LESION. Andrae Goetz MD 06/08/192007 Thank you for allowing us to participate in the care of your patient.
--- NOTE | 2019-06-08 20:49 | EDM.PDOC ---
ED HPI GENERAL MEDICAL PROBLEM - General Chief Complaint: General Time Seen by Provider: 06/08/19 17:00 Source of Information: Reports: Patient, Family History Limitations: Reports: No Limitations - History of Present Illness INITIAL COMMENTS - FREE TEXT/NARRATIVE: PtDavid presents to ER with complaints of R sided facial droop and extremity weakness that started at approx. 1600 today. He is not sure, but he thinks the episode lasted no longer than 15 minutes. He denies any difficulty with speech or ambulation. No chest pain or shortness of breath. No palpitations. No nausea , vomiting, or diarrhea. His symptoms had resolved by the time he arrived to the ER and has not experienced any numbness, tingling, difficulty with speech or ambulation since arrival to ER. Pt. was seen in ER on 06/01 with lightheadedness/pre-syncope. He was given IV fluids at that time. He was not experiencing any abnormal neuro symptoms at that time, other than tunnel-type vision and lightheadedness like he was going to pass out. EKG and labs were all within normal limits (see attached). Pt. has a known history of carotid artery stenosis found on a "lifeline" ultrasound exam within the past year. He has not history of cerebrovascular disease in the past. PMH includes hypertension and ED. He quit smoking in 2009. History of alcoholism (in remission). Onset: Today Onset Date: 06/08/19 Location: Reports: Generalized - Related Data Allergies Allergy/AdvReac Type Severity Reaction Status Date / Time bee venom protein (honey bee) Allergy Severe Anaphylactic Verified 06/08/19 17: 23 Shock Home Meds: Home Meds tadalafiL [Cialis] 20 mg PO DAILY PRN 08/12/14 [History] Enalapril/Hydrochlorothiazide [Enalapril-HCTZ 5-12.5 MG] 1 each PO DAILY [History] Clobetasol [Clobetasol Propionate 0.05%] 30 gm TOP ASDIRECTED PRN 11/18/17 [ History] Desoximetasone [Topicort] 15 gm TP ASDIRECTED PRN 11/18/17 [History] EPINEPHrine [Epipen 2-Jeremias] 0.3 ml IM ASDIRECTED PRN 11/18/17 [History] Past Medical History HEENT History: Reports: Hard of Hearing, Impaired Vision Other HEENT History: hx traumatic subdural hematoma Cardiovascular History: Reports: High Cholesterol, Hypertension Other Cardiovascular History: episodic lightheadedness Other Respiratory History: former smoker Gastrointestinal History: Reports: Colon Polyp, GERD Other Musculoskeletal History: plantar faciitis Neurological History: Reports: None Other Psychiatric History: alcoholism in remission Other Endocrine/Metabolic History: impaired fasting glucose Hematologic History: Reports: None Immunologic History: Reports: None Oncologic (Cancer) History: Reports: Prostate Dermatologic History: Reports: Psoriasis - Past Surgical History Head Surgeries/Procedures: Reports: None GI Surgical History: Reports: Appendectomy, Colonoscopy Male Surgical History: Reports: Prostate Biopsy, Prostatectomy Other Male Surgeries/Procedures: erectile disfunction Oncologic Surgical History: Reports: Other (See Below) Other Oncologic Surgeries/Procedures: prostatectomy Social & Family History - Tobacco Use Smoking Status *Q: Unknown Ever Smoked - Caffeine Use Caffeine Use: Reports: Coffee ED ROS GENERAL - Review of Systems Review Of Systems: See Below Constitutional: Reports: No Symptoms. Denies: Fever, Chills, Malaise, Weakness , Fatigue HEENT: Reports: No Symptoms Respiratory: Reports: No Symptoms Cardiovascular: Reports: No Symptoms Endocrine: Reports: No Symptoms GI/Abdominal: Reports: No Symptoms : Reports: No Symptoms Musculoskeletal: Reports: No Symptoms Skin: Reports: No Symptoms Neurological: Reports: Numbness, Paresthesia, Other (R sided facial droop). Denies: Confusion, Pre-Existing Deficit, Seizure, Tremors, Trouble Speaking Psychiatric: Reports: No Symptoms Hematologic/Lymphatic: Reports: No Symptoms Immunologic: Reports: No Symptoms ED EXAM, GENERAL - Physical Exam Exam: See Below Exam Limited By: No Limitations General Appearance: Alert, WD/WN, No Apparent Distress Eye Exam: Bilateral Eye: EOMI, Normal Fundi, Normal Inspection, PERRL Ears: Normal External Exam, Normal Canal, Hearing Grossly Normal, Normal TMs Ear Exam: Bilateral Ear: Auricle Normal, Canal Normal Nose: Normal Inspection, Normal Mucosa, No Blood Throat/Mouth: Normal Inspection, Normal Lips, Normal Teeth, Normal Gums, Normal Oropharynx, Normal Voice, No Airway Compromise Neck: Normal Inspection, Supple, Non-Tender, Full Range of Motion Respiratory/Chest: No Respiratory Distress, Lungs Clear, Normal Breath Sounds, No Accessory Muscle Use, Chest Non-Tender Cardiovascular: Normal Peripheral Pulses, Regular Rate, Rhythm, No Edema, No Gallop, No JVD, No Murmur, No Rub Peripheral Pulses: 4+: Radial (L) GI/Abdominal: Normal Bowel Sounds, Soft, Non-Tender, No Organomegaly, No Distention, No Abnormal Bruit, No Mass (Male) Exam: Deferred Rectal (Males) Exam: Deferred Back Exam: Normal Inspection, Full Range of Motion Extremities: Normal Inspection, Normal Range of Motion, Non-Tender, No Pedal Edema, Normal Capillary Refill Neurological: Alert, Oriented, CN II-XII Intact, Normal Cognition, Normal Gait, Normal Reflexes, No Motor/Sensory Deficits, Other (NIH 0) Psychiatric: Normal Affect, Normal Mood Course - Vital Signs Last Recorded V/S: Last Vital Signs Temp 36.8 C 06/08/19 16:59 Pulse 78 06/08/19 16:59 Resp 16 06/08/19 16:59 BP 160/76 H 06/08/19 16:59 Pulse Ox 97 06/08/19 16:59 - Orders/Labs/Meds Orders: Active Orders 24 hr Category Date Time Status EKG Documentation Completion [RC] STAT Care 06/08/19 17:16 Active Ang Neck [CT] Stat Exams 06/08/19 17:18 Taken Sodium Chloride 0.9% [Saline Flush] Med 06/08/19 17:15 Active 10 ml FLUSH ASDIRECTED PRN Peripheral IV Insertion Adult [OM.PC] Routine Oth 06/08/19 17:16 Ordered Medication Orders Sodium Chloride (Saline Flush) 10 ml FLUSH ASDIRECTED PRN PRN Reason: Keep Vein Open Labs: Laboratory Tests 06/08/19 06/08/19 06/08/19 Range/Units 17:30 17:30 17:30 WBC 9.8 (4.0-10.0) x10^3/uL RBC 4.77 (4.5-6.0) x10^6/uL Hgb 15.1 (14.0-18.0) g/dL Hct 43.9 (40.0-52.0) % MCV 92.0 (78.0-93.0) fL MCH 31.7 (26.0-32.0) pg MCHC 34.4 (32.0-36.0) g/dL RDW Coeff of Anna 13.2 (10.0-15.0) % Plt Count 249 (130-400) x10^3/uL Neut % (Auto) 61.5 (50.0-80.0) % Lymph % (Auto) 27.3 (25.0-50.0) % [place] % (Auto) 10.0 (2.0-11.0) % Eos % (Auto) 0.7 (0.0-4.0) % Baso % (Auto) 0.5 (0.2-1.2) % PT 10.3 (10.0-12.8) SEC INR 0.9 L (2.0-3.5) Sodium 139 (136-145) mmol/L Potassium 4.0 (3.5-5.1) mmol/L Chloride 103 (98-107) mmol/L Carbon Dioxide 25 (21-32) mmol/L Anion Gap 15.0 (10-20) mmol/L BUN 19 H (7-18) mg/dL Creatinine 1.3 (0.70-1.30) mg/dL Est Cr Clr Drug Dosing TNP Estimated GFR (MDRD) 54 Glucose 103 (74-106) mg/dL Calcium 9.1 (8.5-10.1) mg/dL Corrected Calcium 9.42 (8.5-10.1) mg/dL Magnesium 1.8 (1.8-2.4) mg/dL Total Bilirubin 0.4 (0.2-1.0) mg/dL AST 18 (15-37) U/L ALT 14 L (16-63) U/L Alkaline Phosphatase 60 (46-116) U/L Troponin I < 0.017 (<=0.056) ng/mL Total Protein 7.7 (6.4-8.2) g/dL Albumin 3.6 (3.4-5.0) g/dL Globulin 4.1 Albumin/Globulin Ratio 0.88 TSH, Ultra Sensitive 3.654 (0.358-3.74) uIU/mL Urine Color (YELLOW) Urine Appearance (CLEAR) Urine pH (5.0-8.0) Ur Specific [place] Urine Protein (NEGATIVE) mg/dL Urine Glucose (UA) (NEGATIVE) mg/dL Urine Ketones (NEGATIVE) mg/dL Urine Occult Blood (NEGATIVE) Urine Nitrite (NEGATIVE) Urine Bilirubin (NEGATIVE) Urine Urobilinogen (0.2) EU/dL Ur Leukocyte Esterase (NEGATIVE) Urine RBC (NOT SEEN) /HPF Urine WBC (NOT SEEN) /HPF Ur Squamous Epith Cells (NEGATIVE) /HPF Urine Bacteria (NEGATIVE) /HPF 06/08/19 Range/Units 17:49 WBC (4.0-10.0) x10^3/uL RBC (4.5-6.0) x10^6/uL Hgb (14.0-18.0) g/dL Hct (40.0-52.0) % MCV (78.0-93.0) fL MCH (26.0-32.0) pg MCHC (32.0-36.0) g/dL RDW Coeff of Anna (10.0-15.0) % Plt Count (130-400) x10^3/uL Neut % (Auto) (50.0-80.0) % Lymph % (Auto) (25.0-50.0) % [place] % (Auto) (2.0-11.0) % Eos % (Auto) (0.0-4.0) % Baso % (Auto) (0.2-1.2) % PT (10.0-12.8) SEC INR (2.0-3.5) Sodium (136-145) mmol/L Potassium (3.5-5.1) mmol/L Chloride (98-107) mmol/L Carbon Dioxide (21-32) mmol/L Anion Gap (10-20) mmol/L BUN (7-18) mg/dL Creatinine (0.70-1.30) mg/dL Est Cr Clr Drug Dosing Estimated GFR (MDRD) Glucose (74-106) mg/dL Calcium (8.5-10.1) mg/dL Corrected Calcium (8.5-10.1) mg/dL Magnesium (1.8-2.4) mg/dL Total Bilirubin (0.2-1.0) mg/dL AST (15-37) U/L ALT (16-63) U/L Alkaline Phosphatase (46-116) U/L Troponin I (<=0.056) ng/mL Total Protein (6.4-8.2) g/dL Albumin (3.4-5.0) g/dL Globulin Albumin/Globulin Ratio TSH, Ultra Sensitive (0.358-3.74) uIU/mL Urine Color Yellow (YELLOW) Urine Appearance Slightly cloudy H (CLEAR) Urine pH 6.5 (5.0-8.0) Ur Specific [place] 1.015 Urine Protein Negative (NEGATIVE) mg/dL Urine Glucose (UA) Negative (NEGATIVE) mg/dL Urine Ketones Negative (NEGATIVE) mg/dL Urine Occult Blood Small H (NEGATIVE) Urine Nitrite Negative (NEGATIVE) Urine Bilirubin Negative (NEGATIVE) Urine Urobilinogen 0.2 (0.2) EU/dL Ur Leukocyte Esterase Negative (NEGATIVE) Urine RBC 0-5 (NOT SEEN) /HPF Urine WBC Not seen (NOT SEEN) /HPF Ur Squamous Epith Cells Not seen (NEGATIVE) /HPF Urine Bacteria Few H (NEGATIVE) /HPF Meds: Medications Generic Name Dose Route Start Last Admin Trade Name Freq PRN Reason Stop Dose Admin Sodium Chloride 10 ml 06/08/19 17:15 Saline Flush FLUSH ASDIRECTED PRN Keep Vein Open Discontinued Medications Generic Name Dose Route Start Last Admin Trade Name Freq PRN Reason Stop Dose Admin Aspirin 324 mg 06/08/19 21:03 Aspirin PO 06/08/19 21:04 ONETIME ONE Iopamidol 100 ml 06/08/19 19:18 06/08/19 20:54 Isovue-300 (61%) IVPUSH 06/08/19 19:19 100 ml ONETIME ONE Administration - Radiology Interpretation Free Text/Narrative:: CTA head and neck showed approx. 50% stenosis of R internal carotid and 505 stenosis L internal carotid. No pathology noted to CTA of brain. Departure - Departure Time of Disposition: 21:05 Disposition: DC/Tfer to Acute Hospital 02 Clinical Impression: TIA (transient ischemic attack) - Discharge Information Referrals: Richar Barnes MD [Primary Care Provider] - Forms: ED Department Discharge Sepsis Event Note - Evaluation Sepsis Screening Result: No Definite Risk - Focused Exam Vital Signs: Vital Signs Temp Pulse Resp BP Pulse Ox 06/08/19 16:59 36.8 C 78 16 160/76 H 97 Date Exam was Performed: 06/08/19 Time Exam was Performed: 21:10 - Problem List Review Problem List Initiated/Reviewed/Updated: Yes - My Orders Last 24 Hours: My Active Orders 06/08/19 17:15 Sodium Chloride 0.9% [Saline Flush] 10 ml FLUSH ASDIRECTED PRN 06/08/19 17:16 EKG Documentation Completion [RC] STAT Peripheral IV Insertion Adult [OM.PC] Routine 06/08/19 17:18 Ang Neck [CT] Stat - Assessment/Plan Last 24 Hours: My Active Orders 06/08/19 17:15 Sodium Chloride 0.9% [Saline Flush] 10 ml FLUSH ASDIRECTED PRN 06/08/19 17:16 EKG Documentation Completion [RC] STAT Peripheral IV Insertion Adult [OM.PC] Routine 06/08/19 17:18 Ang Neck [CT] Stat Plan: Spoke with Dr. Salazar, stroke neurologist. He feels he needs further workup including echo and MRI which are not available here. He will be transferred to [facility]. Dr. Magdaleno accepts the patient in transfer to [facility]. He is a code 1.
[2019-06-08] MEDS: Iopamidol 612 MG/ML 100 ML Bottle IVPUSH ONE (20:54)
[2019-06-08] MEDS: Aspirin 81 MG Tab.Chew PO ONE (21:11)
[2019-06-08 23:01] VITALS: BP 173/84; PULSE 64
== END 2019-06-08 22:10 | disposition short-term general hospital (02) ==
LOC: VM.ED 16:54
DX: G45.9 Transient cerebral ischemic attack, unspecified (principal); I10 Essential (primary) hypertension; Z91.030 Bee allergy status; Z79.899 Other long term (current) drug therapy
CPT/HCPCS: 36415; 70496; 70498; 80053; 81001; 83735; 84443; 84484; 85025; 85610; 93005; 99284-GF; 99285-25; A9270-GY; Q9967

== ENCOUNTER 2019-06-26 00:03 | Emergency (ER) | payer MEDICARE, OTHER ==
[2019-06-26] MEDS ORDERED: Sulfamethoxazole/Trimethoprim 800-160 MG Tab PO ONE ×2 (00:17→00:18)
[2019-06-26 00:49] VITALS: BP 155/83; PULSE 98
--- NOTE | 2019-06-26 13:40 | EDM.PDOC ---
ED HPI GENERAL MEDICAL PROBLEM - General Chief Complaint: Genitourinary Problem Stated Complaint: Blood in Urine Time Seen by Provider: 06/26/19 00:10 Source of Information: Reports: Patient History Limitations: Reports: No Limitations - History of Present Illness INITIAL COMMENTS - FREE TEXT/NARRATIVE: Pt. states that he has been experiencing dysuria for the past 1-2 days. He states that he has been experiencing urinary frequency and urgency as well. He states that he developed mild hematuria but states that it has recently gotten worse, and is worried because he has been passing clots. Denies any fever or chills. He is able to urinary and has no complaints of retention. Denies any abdominal discomfort or trauma. He states that he was recently started on aspirin for TIA. He is not anticoagulated. Onset Date: 06/25/19 Location: Reports: Other Associated Symptoms: Denies: Confusion, Chest Pain, Diaphoresis, Fever/Chills, Malaise, Nausea/Vomiting, Shortness of Breath During Urination / Penis Pain Score (Numeric/FACES): 2 - Related Data Allergies Allergy/AdvReac Type Severity Reaction Status Date / Time bee venom protein (honey bee) Allergy Severe Anaphylactic Verified 06/26/19 00: 41 Shock Home Meds: Home Meds tadalafiL [Cialis] 20 mg PO DAILY PRN 08/12/14 [History] Enalapril/Hydrochlorothiazide [Enalapril-HCTZ 5-12.5 MG] 1 each PO DAILY [History] Clobetasol [Clobetasol Propionate 0.05%] 30 gm TOP ASDIRECTED PRN 11/18/17 [ History] Desoximetasone [Topicort] 15 gm TP ASDIRECTED PRN 11/18/17 [History] EPINEPHrine [Epipen 2-Jeremias] 0.3 ml IM ASDIRECTED PRN 11/18/17 [History] Past Medical History HEENT History: Reports: Hard of Hearing, Impaired Vision Other HEENT History: hx traumatic subdural hematoma Cardiovascular History: Reports: High Cholesterol, Hypertension Other Cardiovascular History: episodic lightheadedness Other Respiratory History: former smoker Gastrointestinal History: Reports: Colon Polyp, GERD Genitourinary History: Reports: UTI, Recurrent Other Musculoskeletal History: plantar faciitis Neurological History: Reports: None Other Psychiatric History: alcoholism in remission Other Endocrine/Metabolic History: impaired fasting glucose Hematologic History: Reports: None Immunologic History: Reports: None Oncologic (Cancer) History: Reports: Prostate Dermatologic History: Reports: Psoriasis - Past Surgical History Head Surgeries/Procedures: Reports: None GI Surgical History: Reports: Appendectomy, Colonoscopy Male Surgical History: Reports: Prostate Biopsy, Prostatectomy Other Male Surgeries/Procedures: erectile disfunction Oncologic Surgical History: Reports: Other (See Below) Other Oncologic Surgeries/Procedures: prostatectomy Social & Family History - Tobacco Use Smoking Status *Q: Former Smoker Used Tobacco, but Quit: Yes Month/Year Tobacco Last Used: 2006 - Caffeine Use Caffeine Use: Reports: Coffee - Recreational Drug Use Recreational Drug Use: No ED ROS GENERAL - Review of Systems Review Of Systems: See Below Constitutional: Reports: No Symptoms HEENT: Reports: No Symptoms Respiratory: Reports: No Symptoms Cardiovascular: Reports: No Symptoms Endocrine: Reports: No Symptoms GI/Abdominal: Reports: No Symptoms : Reports: Dysuria, Frequency, Hematuria, Urgency Musculoskeletal: Reports: No Symptoms Skin: Reports: No Symptoms Neurological: Reports: No Symptoms Psychiatric: Reports: No Symptoms Hematologic/Lymphatic: Reports: No Symptoms Immunologic: Reports: No Symptoms ED EXAM, GENERAL - Physical Exam Exam: See Below Exam Limited By: No Limitations General Appearance: Alert, WD/WN, No Apparent Distress GI/Abdominal: Normal Bowel Sounds, Soft, Non-Tender, No Organomegaly, No Distention, No Abnormal Bruit, No Mass (Male) Exam: Deferred Rectal (Males) Exam: Deferred Back Exam: Normal Inspection, Full Range of Motion. No: CVA Tenderness (L), CVA Tenderness (R) Course - Vital Signs Last Recorded V/S: Last Vital Signs Temp 35.5 C L 06/26/19 00:05 Pulse 98 06/26/19 00:05 Resp 14 06/26/19 00:05 BP 155/83 H 06/26/19 00:05 Pulse Ox 100 06/26/19 00:05 - Orders/Labs/Meds Orders: Active Orders 24 hr Category Date Time Status CULTURE URINE [RM] Stat Lab 06/26/19 00:10 Received Labs: Laboratory Tests 06/26/19 Range/Units 00:10 Urine Color Red H (YELLOW) POC Urine Appearance Other H (CLEAR) POC Urine pH 5.0 (5.0-8.0) Ur Specific [place] 1.015 (1.005-1.030) POC Urine Protein >300 H (NEGATIVE) POC Ur Glucose (UA) Negative (NEGATIVE) POC Urine Ketones 15 H (NEGATIVE) POC Ur Occult Blood Large H (NEGATIVE) POC Urine Nitrite Negative (NEGATIVE) POC Urine Bilirubin Large (NEGATIVE) POC Urine Urobilinogen 0.2 (0.2) POC U Leukocyte Esteras Large H (NEGATIVE) Meds: Medications Discontinued Medications Generic Name Dose Route Start Last Admin Trade Name Robert PRN Reason Stop Dose Admin Trimethoprim/Sulfamethoxazole 1 tab 06/26/19 00:17 06/26/19 00:24 Septra Ds PO 06/26/19 00:18 1 tab ONETIME ONE Administration Trimethoprim/Sulfamethoxazole 1 tab 06/26/19 00:18 06/26/19 00:24 Septra Ds PO 06/26/19 00:19 1 tab ONETIME ONE Administration Departure - Departure Time of Disposition: 00:28 Disposition: Home, Self-Care 01 Clinical Impression: UTI, Urinary tract infectious disease - Discharge Information Instructions: Urinary Tract Infection, Adult Referrals: Richar Barnes MD [Primary Care Provider] - Forms: ED Department Discharge Additional Instructions: Bactrim DS 1 twice daily for 7 days Drink plenty of fluids You will still continue to have blood in your urine for several days, until the inflammation in you bladder is improving. You may also pass some clots. Return to ER if you are unable to urinate at all. Recheck in clinic in 10 days, sooner if abdominal or back pain. Sepsis Event Note - Evaluation Sepsis Screening Result: Possible Sepsis Risk - My Orders Last 24 Hours: My Active Orders 06/26/19 00:10 CULTURE URINE [RM] Stat - Assessment/Plan Last 24 Hours: My Active Orders 06/26/19 00:10 CULTURE URINE [RM] Stat Plan: Bactrim DS 1 twice daily for 7 days Drink plenty of fluids You will still continue to have blood in your urine for several days, until the inflammation in you bladder is improving. You may also pass some clots. Return to ER if you are unable to urinate at all. Recheck in clinic in 10 days, sooner if abdominal or back pain.
== END 2019-06-26 00:28 | disposition home or self-care (01) ==
LOC: VM.ED 00:03
DX: N39.0 Urinary tract infection, site not specified (principal); I10 Essential (primary) hypertension; Z79.899 Other long term (current) drug therapy; Z91.030 Bee allergy status; Z87.891 Personal history of nicotine dependence
CPT/HCPCS: 81002; 87086; 87088; 87186; 99283; A9270

== ENCOUNTER 2019-12-06 07:13 | Emergency (ER) | payer MEDICARE, OTHER ==
[2019-12-06 07:49] VITALS: BP 149/55; PULSE 66
--- NOTE | 2019-12-06 07:52 | EDM.PDOC ---
ED HPI GENERAL MEDICAL PROBLEM - General Chief Complaint: Genitourinary Problem Stated Complaint: POSSIBLE BLADDER INFECTION Time Seen by Provider: 12/06/19 07:45 Source of Information: Reports: Patient - History of Present Illness INITIAL COMMENTS - FREE TEXT/NARRATIVE: Federico is a 74 y/o male who comes to the ER with dysuria and bladder pressure that started about 3 days ago. He notices sx more when he tries to lay down to sleep. No fever. No n/v/d. Has had a hx of prostate removal some years ago. Suprapubic Pain Score (Numeric/FACES): 3 - Related Data Allergies Allergy/AdvReac Type Severity Reaction Status Date / Time bee venom protein (honey bee) Allergy Severe Anaphylactic Verified 12/06/19 07:51 Shock Home Meds: Home Meds tadalafiL [Cialis] 20 mg PO DAILY PRN 08/12/14 [History] Enalapril/Hydrochlorothiazide [Enalapril-HCTZ 5-12.5 MG] 1 each PO DAILY 07/21/16 [History] Clobetasol [Clobetasol Propionate 0.05%] 30 gm TOP ASDIRECTED PRN 11/18/17 [History] Desoximetasone [Topicort] 15 gm TP ASDIRECTED PRN 11/18/17 [History] EPINEPHrine [Epipen 2-Jeremias] 0.3 ml IM ASDIRECTED PRN 11/18/17 [History] Ciprofloxacin HCl [Cipro] 500 mg PO BID #14 tablet 12/06/19 [Rx] Past Medical History HEENT History: Reports: Hard of Hearing, Impaired Vision Other HEENT History: hx traumatic subdural hematoma Cardiovascular History: Reports: High Cholesterol, Hypertension Other Cardiovascular History: episodic lightheadedness Other Respiratory History: former smoker Gastrointestinal History: Reports: Colon Polyp, GERD Genitourinary History: Reports: Prostate Disorder, UTI, Recurrent Other Musculoskeletal History: plantar faciitis Neurological History: Reports: None Other Psychiatric History: alcoholism in remission Other Endocrine/Metabolic History: impaired fasting glucose Hematologic History: Reports: None Immunologic History: Reports: None Oncologic (Cancer) History: Reports: Prostate Dermatologic History: Reports: Psoriasis - Past Surgical History Head Surgeries/Procedures: Reports: None GI Surgical History: Reports: Appendectomy, Colonoscopy Male Surgical History: Reports: Prostate Biopsy, Prostatectomy Other Male Surgeries/Procedures: erectile disfunction Oncologic Surgical History: Reports: Other (See Below) Other Oncologic Surgeries/Procedures: prostatectomy Social & Family History - Tobacco Use Smoking Status *Q: Never Smoker - Caffeine Use Caffeine Use: Reports: Coffee Review of Systems - Review of Systems Review Of Systems: See Below Constitutional: Reports: No Symptoms Eyes: Reports: No Symptoms Ears: Reports: No Symptoms Nose: Reports: No Symptoms Mouth/Throat: Reports: No Symptoms Respiratory: Reports: No Symptoms Cardiovascular: Reports: No Symptoms GI/Abdominal: Reports: No Symptoms Genitourinary: Reports: Dysuria, Painful Urination Musculoskeletal: Reports: No Symptoms Skin: Reports: No Symptoms Neurological: Reports: No Symptoms Psychiatric: Reports: No Symptoms ED EXAM, GENERAL - Physical Exam Exam: See Below Exam Limited By: No Limitations General Appearance: Alert, WD/WN, No Apparent Distress (Elderly male.) Ears: Hearing Grossly Normal Nose: Normal Inspection, Normal Mucosa Throat/Mouth: Normal Inspection, Normal Voice Head: Atraumatic, Normocephalic Neck: Normal Inspection, Supple Respiratory/Chest: No Respiratory Distress, Lungs Clear Cardiovascular: Regular Rate, Rhythm, No Edema GI/Abdominal: Normal Bowel Sounds, Soft (Male) Exam: Deferred Rectal (Males) Exam: Deferred Back Exam: Normal Inspection Extremities: Normal Inspection, Normal Range of Motion, Normal Capillary Refill Neurological: Alert, Oriented, CN II-XII Intact Psychiatric: Normal Affect Skin Exam: Warm, Dry, Intact, Normal Color Lymphatic: No Adenopathy Course - Vital Signs Text/Narrative:: The patient was seen by the [employer]. UA was done UA results reviewed and results neg. Ordered further labs. Labs all neg. Will treat with Cipro for dysuria. Questions answered, patient was given discharge instructions and left the ER in stable condition. Last Recorded V/S: Last Vital Signs Temp 36.4 C 12/06/19 07:15 Pulse 66 12/06/19 07:15 Resp 16 12/06/19 07:15 BP 149/55 H 12/06/19 07:15 Pulse Ox 98 12/06/19 07:15 - Orders/Labs/Meds Labs: Laboratory Tests 12/06/19 12/06/19 12/06/19 Range/Units 07:31 08:24 08:24 WBC 8.0 (4.0-10.0) x10^3/uL RBC 4.54 (4.5-6.0) x10^6/uL Hgb 14.3 (14.0-18.0) g/dL Hct 42.2 (40.0-52.0) % MCV 93.0 (78.0-93.0) fL MCH 31.5 (26.0-32.0) pg MCHC 33.9 (32.0-36.0) g/dL RDW Coeff of Anna 13.1 (10.0-15.0) % Plt Count 228 (130-400) x10^3/uL Neut % (Auto) 63.2 (50.0-80.0) % Lymph % (Auto) 24.3 L (25.0-50.0) % [place] % (Auto) 10.8 (2.0-11.0) % Eos % (Auto) 1.3 (0.0-4.0) % Baso % (Auto) 0.4 (0.2-1.2) % Sodium 136 (136-145) mmol/L Potassium 3.7 (3.5-5.1) mmol/L Chloride 100 (98-107) mmol/L Carbon Dioxide 29 (21-32) mmol/L Anion Gap 10.7 (10-20) mmol/L BUN 21 H (7-18) mg/dL Creatinine 1.4 H (0.70-1.30) mg/dL Est Cr Clr Drug Dosing 47.08 mL/min Estimated GFR (MDRD) 49 Glucose 114 H (74-106) mg/dL Calcium 8.9 (8.5-10.1) mg/dL Corrected Calcium 9.30 (8.5-10.1) mg/dL Total Bilirubin 0.7 (0.2-1.0) mg/dL AST 20 (15-37) U/L ALT 15 L (16-63) U/L Alkaline Phosphatase 70 (46-116) U/L Total Protein 7.5 (6.4-8.2) g/dL Albumin 3.5 (3.4-5.0) g/dL Globulin 4.0 Albumin/Globulin Ratio 0.88 Urine Color Light yellow (YELLOW) Urine Appearance Clear (CLEAR) Urine pH 6.0 (5.0-8.0) Ur Specific [place] 1.015 Urine Protein Negative (NEGATIVE) mg/dL Urine Glucose (UA) Negative (NEGATIVE) mg/dL Urine Ketones Negative (NEGATIVE) mg/dL Urine Occult Blood Small H (NEGATIVE) Urine Nitrite Negative (NEGATIVE) Urine Bilirubin Negative (NEGATIVE) Urine Urobilinogen 0.2 (0.2) EU/dL Ur Leukocyte Esterase Negative (NEGATIVE) Urine RBC 0-5 (NOT SEEN) /HPF Urine WBC 0-5 (NOT SEEN) /HPF Ur Squamous Epith Cells Rare (NEGATIVE) /HPF Urine Bacteria Not seen (NEGATIVE) /HPF Urine Mucus Rare H (NEGATIVE) /LPF Departure - Departure Time of Disposition: 09:18 Disposition: Home, Self-Care 01 Condition: Good Clinical Impression: Dysuria - Discharge Information *PRESCRIPTION DRUG MONITORING PROGRAM REVIEWED*: No *COPY OF PRESCRIPTION DRUG MONITORING REPORT IN PATIENT SHANTANU: No Prescriptions: Ciprofloxacin HCl [Cipro] 500 mg PO BID #14 tablet Instructions: Dysuria Referrals: Ryan Stanton MD [Primary Care Provider] - Forms: ED Department Discharge Additional Instructions: -Cipro 500mg oral twice daily x 7 days #2(ER) #12(Rx) -Drink plenty of water -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 These may turn your urine a bright orange color, but this is expected. -Follow up with your PCP or return to the ER is your symptoms are not improving. Sepsis Event Note (ED) - Evaluation Sepsis Screening Result: No Definite Risk - Focused Exam Vital Signs: Vital Signs Temp Pulse Resp BP Pulse Ox 12/06/19 07:15 36.4 C 66 16 149/55 H 98
[2019-12-06 08:55] LABS: ANION GAP 10.7 mmol/L (10-20)
[2019-12-06] MEDS ORDERED: Take Home: Ciprofloxacin 500 MG Tab, 2 Tab Pack PO ONE (09:19)
== END 2019-12-06 09:40 | disposition home or self-care (01) ==
LOC: VM.ED 07:13
DX: R30.0 Dysuria (principal); I10 Essential (primary) hypertension; Z91.030 Bee allergy status; Z90.89 Acquired absence of other organs; Z79.899 Other long term (current) drug therapy; Z87.891 Personal history of nicotine dependence
CPT/HCPCS: 36415; 80053; 81001; 85025; 99283; A9270-GY

== ENCOUNTER 2020-01-22 19:45 | Observation (INO) | payer MEDICARE, OTHER ==
[2020-01-22] MEDS ORDERED: Ondansetron 4 MG/2 ML SDV IV ONE (20:26)
[2020-01-22] MEDS ORDERED: Morphine 2 MG/ML SYRINGE IVPUSH ONE (20:26)
[2020-01-22] MEDS ORDERED: Lactated Ringers 1,000 ML IV ONE (20:36)
--- NOTE | 2020-01-22 20:36 | EDM.PDOC ---
ED HPI GENERAL MEDICAL PROBLEM - General Chief Complaint: Abdominal Pain Stated Complaint: ABD PAIN Time Seen by Provider: 01/22/20 20:20 Source of Information: Reports: Patient History Limitations: Reports: No Limitations - History of Present Illness INITIAL COMMENTS - FREE TEXT/NARRATIVE: Patient comes emergency department today from home with complaints of abdominal pain. Since last night the patient has had upper and lower abdominal pain intermittently over the past 24 hours. He initially thought that he was constipated he took some milk of magnesia he has had a couple of bowel movements but no improvement of the pain. No fever no chills. He has had some nausea no vomiting. No hematuria dysuria or urinary frequency. No flank pain. He has had surgery in his abdomen in the past for prostate cancer as well as his appendix being removed. No covert exposure no covert symptoms. His appetite is been good. Upper abdomen, epigastric Pain Score (Numeric/FACES): 4 midlow abdomen Pain Score (Numeric/FACES): 5 - Related Data Allergies Allergy/AdvReac Type Severity Reaction Status Date / Time bee venom protein (honey bee) Allergy Severe Anaphylactic Verified 01/22/20 20:56 Shock Home Meds: Home Meds tadalafiL [Cialis] 20 mg PO DAILY PRN 08/12/14 [History] Enalapril/Hydrochlorothiazide [Enalapril-HCTZ 5-12.5 MG] 1 each PO DAILY 07/21/16 [History] Clobetasol [Clobetasol Propionate 0.05%] 30 gm TOP ASDIRECTED PRN 11/18/17 [History] Desoximetasone [Topicort] 15 gm TP ASDIRECTED PRN 11/18/17 [History] EPINEPHrine [Epipen 2-Jeremias] 0.3 ml IM ASDIRECTED PRN 11/18/17 [History] Past Medical History HEENT History: Reports: Hard of Hearing, Impaired Vision Other HEENT History: hx traumatic subdural hematoma Cardiovascular History: Reports: High Cholesterol, Hypertension Other Cardiovascular History: episodic lightheadedness Other Respiratory History: former smoker Gastrointestinal History: Reports: Colon Polyp, GERD Genitourinary History: Reports: Prostate Disorder, UTI, Recurrent Other Musculoskeletal History: plantar faciitis Neurological History: Reports: None Other Psychiatric History: alcoholism in remission Other Endocrine/Metabolic History: impaired fasting glucose Hematologic History: Reports: None Immunologic History: Reports: None Oncologic (Cancer) History: Reports: Prostate Dermatologic History: Reports: Psoriasis - Past Surgical History Head Surgeries/Procedures: Reports: None GI Surgical History: Reports: Appendectomy, Colonoscopy Male Surgical History: Reports: Prostate Biopsy, Prostatectomy Other Male Surgeries/Procedures: erectile disfunction Oncologic Surgical History: Reports: Other (See Below) Other Oncologic Surgeries/Procedures: prostatectomy Social & Family History - Caffeine Use Caffeine Use: Reports: Coffee ED ROS GENERAL - Review of Systems Review Of Systems: Comprehensive ROS is negative, except as noted in HPI. ED EXAM, GI/ABD - Physical Exam Exam: See Below Exam Limited By: No Limitations General Appearance: Alert, WD/WN, No Apparent Distress Ears: Normal External Exam Nose: Normal Inspection Throat/Mouth: Normal Inspection Head: Atraumatic Neck: Normal Inspection Respiratory/Chest: No Respiratory Distress, Lungs Clear, Normal Breath Sounds, No Accessory Muscle Use, Chest Non-Tender Cardiovascular: Normal Peripheral Pulses, Regular Rate, Rhythm GI/Abdominal Exam: Normal Bowel Sounds (Hyperactive), Soft, No Organomegaly, No Distention, Rebound (Rebound tenderness in the mid abdomen and left lower quadrant.), Tender (Tenderness to the epigastric and left upper quadrant with referred pain to the left lower and mid abdomen) (Male) Exam: Deferred Rectal (Males) Exam: Deferred Back Exam: Normal Inspection Extremities: Normal Inspection Neurological: Alert, Oriented, Normal Cognition, No Motor/Sensory Deficits Psychiatric: Normal Affect, Normal Mood Skin Exam: Warm, Dry, Intact, Normal Color, No Rash Lymphatic: No Adenopathy Course - Vital Signs Last Recorded V/S: Last Vital Signs Temp 99.9 F 01/22/20 19:45 Pulse 67 01/22/20 19:45 Resp 16 01/22/20 19:45 BP 164/63 H 01/22/20 19:45 Pulse Ox 98 01/22/20 19:45 - Orders/Labs/Meds Orders: Active Orders 24 hr Category Date Time Status Admission Status [Patient Status] [ADT] Routine ADT 01/22/20 22:13 Active Abdomen Pelvis w Cont [CT] Stat Exams 01/22/20 20:24 Taken Sodium Chloride 0.9% [Saline Flush] Med 01/22/20 20:23 Active 10 ml FLUSH ASDIRECTED PRN Peripheral IV Insertion Adult [OM.PC] Stat Oth 01/22/20 20:23 Ordered Medication Orders Sodium Chloride (Saline Flush) 10 ml FLUSH ASDIRECTED PRN PRN Reason: Keep Vein Open Labs: Laboratory Tests 01/22/20 01/22/20 01/22/20 Range/Units 20:40 20:40 20:40 WBC 15.7 H (4.0-10.0) x10^3/uL RBC 4.36 L (4.5-6.0) x10^6/uL Hgb 13.8 L (14.0-18.0) g/dL Hct 40.1 (40.0-52.0) % MCV 92.0 (78.0-93.0) fL MCH 31.7 (26.0-32.0) pg MCHC 34.4 (32.0-36.0) g/dL RDW Coeff of [place] 13.0 (10.0-15.0) % Plt Count 226 (130-400) x10^3/uL Neut % (Auto) 71.7 (50.0-80.0) % Lymph % (Auto) 15.1 L (25.0-50.0) % [place] % (Auto) 12.5 H (2.0-11.0) % Eos % (Auto) 0.5 (0.0-4.0) % Baso % (Auto) 0.2 (0.2-1.2) % Sodium 136 (136-145) mmol/L Potassium 3.9 (3.5-5.1) mmol/L Chloride 100 (98-107) mmol/L Carbon Dioxide 28 (21-32) mmol/L Anion Gap 11.9 (10-20) mmol/L BUN 13 (7-18) mg/dL Creatinine 1.3 (0.70-1.30) mg/dL Est Cr Clr Drug Dosing 49.91 mL/min Estimated GFR (MDRD) 54 Glucose 118 H (74-106) mg/dL Lactic Acid (0.4-2.0) mmol/L Calcium 8.9 (8.5-10.1) mg/dL Corrected Calcium 9.46 (8.5-10.1) mg/dL Total Bilirubin 0.8 (0.2-1.0) mg/dL AST 17 (15-37) U/L ALT 13 L (16-63) U/L Alkaline Phosphatase 72 (46-116) U/L C-Reactive Protein 4.3 H (<=0.9) mg/dL Total Protein 7.1 (6.4-8.2) g/dL Albumin 3.3 L (3.4-5.0) g/dL Globulin 3.8 Albumin/Globulin Ratio 0.87 Lipase 189 (73-393) U/L Urine Color Yellow (YELLOW) Urine Appearance Clear (CLEAR) Urine pH 7.5 (5.0-8.0) Ur Specific [place] 1.015 Urine Protein Negative (NEGATIVE) mg/dL Urine Glucose (UA) Negative (NEGATIVE) mg/dL Urine Ketones Negative (NEGATIVE) mg/dL Urine Occult Blood Trace-intact H (NEGATIVE) Urine Nitrite Negative (NEGATIVE) Urine Bilirubin Negative (NEGATIVE) Urine Urobilinogen 0.2 (0.2) EU/dL Ur Leukocyte Esterase Negative (NEGATIVE) Urine RBC 0-5 (NOT SEEN) /HPF Urine WBC Not seen (NOT SEEN) /HPF Ur Squamous Epith Cells Rare (NEGATIVE) /HPF Urine Bacteria Rare (NEGATIVE) /HPF Urine Mucus Not seen (NEGATIVE) /LPF 01/22/20 Range/Units 20:40 WBC (4.0-10.0) x10^3/uL RBC (4.5-6.0) x10^6/uL Hgb (14.0-18.0) g/dL Hct (40.0-52.0) % MCV (78.0-93.0) fL MCH (26.0-32.0) pg MCHC (32.0-36.0) g/dL RDW Coeff of [place] (10.0-15.0) % Plt Count (130-400) x10^3/uL Neut % (Auto) (50.0-80.0) % Lymph % (Auto) (25.0-50.0) % [place] % (Auto) (2.0-11.0) % Eos % (Auto) (0.0-4.0) % Baso % (Auto) (0.2-1.2) % Sodium (136-145) mmol/L Potassium (3.5-5.1) mmol/L Chloride (98-107) mmol/L Carbon Dioxide (21-32) mmol/L Anion Gap (10-20) mmol/L BUN (7-18) mg/dL Creatinine (0.70-1.30) mg/dL Est Cr Clr Drug Dosing mL/min Estimated GFR (MDRD) Glucose (74-106) mg/dL Lactic Acid 0.8 (0.4-2.0) mmol/L Calcium (8.5-10.1) mg/dL Corrected Calcium (8.5-10.1) mg/dL Total Bilirubin (0.2-1.0) mg/dL AST (15-37) U/L ALT (16-63) U/L Alkaline Phosphatase (46-116) U/L C-Reactive Protein (<=0.9) mg/dL Total Protein (6.4-8.2) g/dL Albumin (3.4-5.0) g/dL Globulin Albumin/Globulin Ratio Lipase (73-393) U/L Urine Color (YELLOW) Urine Appearance (CLEAR) Urine pH (5.0-8.0) Ur Specific [place] Urine Protein (NEGATIVE) mg/dL Urine Glucose (UA) (NEGATIVE) mg/dL Urine Ketones (NEGATIVE) mg/dL Urine Occult Blood (NEGATIVE) Urine Nitrite (NEGATIVE) Urine Bilirubin (NEGATIVE) Urine Urobilinogen (0.2) EU/dL Ur Leukocyte Esterase (NEGATIVE) Urine RBC (NOT SEEN) /HPF Urine WBC (NOT SEEN) /HPF Ur Squamous Epith Cells (NEGATIVE) /HPF Urine Bacteria (NEGATIVE) /HPF Urine Mucus (NEGATIVE) /LPF Meds: Medications Generic Name Dose Route Start Last Admin Trade Name Freq PRN Reason Stop Dose Admin Sodium Chloride 10 ml 01/22/20 20:23 Saline Flush FLUSH ASDIRECTED PRN Keep Vein Open Discontinued Medications Generic Name Dose Route Start Last Admin Trade Name Freq PRN Reason Stop Dose Admin Lactated Ringer's 1,000 mls @ 999 mls/hr 01/22/20 20:36 01/22/20 20:45 Ringers, Lactated IV 01/22/20 21:36 999 mls/hr ONETIME ONE Administration Iopamidol 100 ml 01/22/20 21:29 01/22/20 21:29 Isovue-300 (61%) IVPUSH 01/22/20 21:30 100 ml ONETIME ONE Administration Morphine Sulfate 2 mg 01/22/20 20:26 01/22/20 20:50 Morphine IVPUSH 01/22/20 20:27 2 mg ONETIME ONE Administration Ondansetron HCl 4 mg 01/22/20 20:26 01/22/20 20:48 Zofran IV 01/22/20 20:27 4 mg ONETIME ONE Administration - Re-Assessments/Exams Free Text/Narrative Re-Assessment/Exam: 01/22/20 20:35 Labs drawn UA pending Zofran 4 mg IV push. Morphine 2 mg IV push. 01/22/20 22:16 Have a mildly elevated white blood cell count at 15 and also mildly elevated CRP. His pain was somewhat improved with the above therapy although it did return. CT scan of the abdomen per radiology shows mild focal acute pancreatitis involving uncinate processes. Interestingly although the patient's lipase is normal. 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 He has rebound tenderness in the epigastric in the mid abdominal region. Unsure of where he is in the slide of pancreatitis. With a normal lipase but findings concerning for it on a CAT scan that were quite evident the patient and myself feel more comfortable with observation with pain management hydration tonight. Admit him under observation under my service continued hydration pain management nausea and repeat labs and serial ab dominal exams in the morning. He is comfortable with this plan his questions are answered. Departure - Departure Time of Disposition: 22:19 Disposition: Refer to Observation Clinical Impression: Pancreatitis, acute Qualifiers: Pancreatitis type: unspecified pancreatitis type Acute pancreatitis complication: unspecified Qualified Code(s): K85.90 - Acute pancreatitis without necrosis or infection, unspecified - Discharge Information Forms: ED Department Discharge Sepsis Event Note (ED) - Focused Exam Vital Signs: Vital Signs Temp Pulse Resp BP Pulse Ox 01/22/20 19:45 99.9 F 67 16 164/63 H 98 - Problem List & Annotations (1) Pancreatitis, acute SNOMED Code(s): 675988573 Code(s): K85.90 - ACUTE PANCREATITIS WITHOUT NECROSIS OR INFECTION, UNSP Status: Acute Qualifiers: Pancreatitis type: unspecified pancreatitis type Acute pancreatitis complication: unspecified Qualified Code(s): K85.90 - Acute pancreatitis without necrosis or infection, unspecified - My Orders Last 24 Hours: My Active Orders 01/22/20 20:23 Sodium Chloride 0.9% [Saline Flush] 10 ml FLUSH ASDIRECTED PRN Peripheral IV Insertion Adult [OM.PC] Stat 01/22/20 20:24 Abdomen Pelvis w Cont [CT] Stat 01/22/20 22:13 Admission Status [Patient Status] [ADT] Routine - Assessment/Plan Admission H&P: Please use this note as an admission H&P Last 24 Hours: My Active Orders 01/22/20 20:23 Sodium Chloride 0.9% [Saline Flush] 10 ml FLUSH ASDIRECTED PRN Peripheral IV Insertion Adult [OM.PC] Stat 01/22/20 20:24 Abdomen Pelvis w Cont [CT] Stat 01/22/20 22:13 Admission Status [Patient Status] [ADT] Routine Assessment:: A/P Admit Observation under my service. Mild focal acute pancreatitis-Per CT scan with a normal Lipase. I am unclear if this pancreatitis is on the up-slope or improvement side of his pancreatitis. Clear liquid diet. Hydrate with LR 125mls/hr. Zofran 4mg q6hrs prn nausea. Dilaudid 0.5mg every 4 hrs prn pain. Advance diet as tolerated and advance diet as tolerated in the morning. Sydni Score 2 and BISAP 1. Mortality risk 3% aprox. Repeat CBC, CMP Lipase amylase and CRP in the morning. Hx hypertension: Asa qd, vasotec 5mg qd. HCTZ 12.5mg qd. Hx CKD 3- GFR 54 today. Daily labs and hydration. Hx Hyperlipidemia, continue the home lipitor 40mg qd. Hx of prostate cancer, surgery without chemotherapy. VTE- Low risk. TEDS and short stay. Sepsis, lactic normal. WBC from pancreatitis will continue to follow with labs. Typically anti-biotics are not indicated for simple uncomplicated pancreatitis. Plan: See assessment.
[2020-01-22 21:05] LABS: ANION GAP 11.9 mmol/L (10-20)
[2020-01-22] MEDS ORDERED: Iopamidol 612 MG/ML 100 ML Bottle IVPUSH ONE (21:29)
[2020-01-22] MEDS ORDERED: HYDROmorphone 0.5 MG/0.5 ML Syringe IV ONE (22:35)
[2020-01-22] MEDS ORDERED: Ondansetron 4 MG/2 ML SDV IV PRN (23:59)
[2020-01-23] MEDS: Lactated Ringers 1,000 ML IV SCH ×2 (00:51→07:33)
[2020-01-23] MEDS: Sodium Chloride 0.9% 10 ML Syringe FLUSH PRN ×4 (03:15→12:15)
[2020-01-23] MEDS: HYDROmorphone 0.5 MG/0.5 ML Syringe IVPUSH PRN ×4 (03:15→19:33)
--- NOTE | 2020-01-23 08:09 | CT ---
[id number] CT/CT Abdomen Pelvis W IV EXAM: CT Abdomen Pelvis W IV CLINICAL DATA: ABDOMINAL PAIN COMPARISON: NO PREVIOUS SIMILAR EXAM IS AVAILABLE. FINDINGS: There appears to be mild edema in the region of the uncinate process of the pancreas There are renal cysts There are atheromatous calcifications The liver and spleen are unremarkable There is no hydronephrosis The gallbladder is not distended. There is no free fluid or free air The pelvis shows no mass or adenopathy There is diverticular disease of the colon without diverticulitis There is no evidence of appendicitis IMPRESSION: APPEARANCE OF EARLY FOCAL PANCREATITIS CORRELATION WITH SERUM CHEMISTRIES SUGGESTED. FOLLOW-UP CT MAY BE HELPFUL Andrae Goetz MD 01/23/20 [id number] Thank you for allowing us to participate in the care of your patient.
[2020-01-23 08:35] LABS: ANION GAP 13.1 mmol/L (10-20)
[2020-01-23] MEDS: Hydrochlorothiazide 12.5 MG Cap PO SCH (08:59)
[2020-01-23] MEDS: Enalapril 5 MG Tab PO SCH (08:59)
[2020-01-23] MEDS: atorvaSTATin 40 MG Tab PO SCH (08:59)
[2020-01-23] MEDS ORDERED: Lactated Ringers 1,000 ML IV SCH (15:45)
--- NOTE | 2020-01-23 15:50 | PCM.PN ---
- General Info Date of Service: 01/23/20 Admission Dx/Problem (Free Text): Pancreatitis abd pain. Subjective Update: Patient states that he slept well throughout the night. He has tolerated the clear liquid diet as well as the full liquid diet. He has had some nausea but no vomiting. He has had a normal appetite. He has not had a bowel movement since he is been here. He denies any subjective fever or chills. He does relate that he is requiring the Dilaudid every 4 hours otherwise the pain come back to level at a once last night. He has no hematuria dysuria or urinary frequency. No weakness dizziness lightheadedness. No chest pain no shortness of breath or difficulty breathing. Functional Status: Reports: Pain Controlled (yes but is requiring the DIlaudid 0.5mg every 4 hrs otherwise the pain returns to as it was last night. ), Tolerating Diet (full liquid diet. ) - Review of Systems General: Denies: Fever, Weakness, Fatigue, Malaise, Chills, Night Sweats HEENT: Reports: No Symptoms Pulmonary: Reports: No Symptoms Cardiovascular: Reports: No Symptoms Gastrointestinal: Reports: Nausea. Denies: Diarrhea, Flatus, Vomiting Genitourinary: Reports: No Symptoms Musculoskeletal: Reports: No Symptoms Skin: Reports: No Symptoms Neurological: Reports: No Symptoms Psychiatric: Reports: No Symptoms - Patient Data Vitals - Most Recent: Last Vital Signs Temp 98.3 F 01/23/20 13:57 Pulse 58 L 01/23/20 13:57 Resp 16 01/23/20 13:57 BP 119/58 L 01/23/20 13:57 Pulse Ox 93 L 01/23/20 13:57 Weight - Most Recent: 172 lb 9.6 oz I&O - Last 24 Hours: Intake & Output 01/23/20 01/23/20 01/23/20 06:59 14:59 22:59 Intake Total 912 820 Output Total 0 Balance 912 820 Lab Results Last 24 Hours: Laboratory Results - last 24 hr 01/22/20 01/22/20 01/22/20 Range/Units 20:40 20:40 20:40 WBC 15.7 H (4.0-10.0) x10^3/uL RBC 4.36 L (4.5-6.0) x10^6/uL Hgb 13.8 L (14.0-18.0) g/dL Hct 40.1 (40.0-52.0) % MCV 92.0 (78.0-93.0) fL MCH 31.7 (26.0-32.0) pg MCHC 34.4 (32.0-36.0) g/dL RDW Coeff of Anna 13.0 (10.0-15.0) % Plt Count 226 (130-400) x10^3/uL Neut % (Auto) 71.7 (50.0-80.0) % Lymph % (Auto) 15.1 L (25.0-50.0) % [place] % (Auto) 12.5 H (2.0-11.0) % Eos % (Auto) 0.5 (0.0-4.0) % Baso % (Auto) 0.2 (0.2-1.2) % Sodium 136 (136-145) mmol/L Potassium 3.9 (3.5-5.1) mmol/L Chloride 100 (98-107) mmol/L Carbon Dioxide 28 (21-32) mmol/L Anion Gap 11.9 (10-20) mmol/L BUN 13 (7-18) mg/dL Creatinine 1.3 (0.70-1.30) mg/dL Est Cr Clr Drug Dosing 49.91 mL/min Estimated GFR (MDRD) 54 Glucose 118 H (74-106) mg/dL Lactic Acid (0.4-2.0) mmol/L Calcium 8.9 (8.5-10.1) mg/dL Corrected Calcium 9.46 (8.5-10.1) mg/dL Total Bilirubin 0.8 (0.2-1.0) mg/dL AST 17 (15-37) U/L ALT 13 L (16-63) U/L Alkaline Phosphatase 72 (46-116) U/L C-Reactive Protein 4.3 H (<=0.9) mg/dL Total Protein 7.1 (6.4-8.2) g/dL Albumin 3.3 L (3.4-5.0) g/dL Globulin 3.8 Albumin/Globulin Ratio 0.87 Amylase (25-115) U/L Lipase 189 (73-393) U/L Urine Color Yellow (YELLOW) Urine Appearance Clear (CLEAR) Urine pH 7.5 (5.0-8.0) Ur Specific [place] 1.015 Urine Protein Negative (NEGATIVE) mg/dL Urine Glucose (UA) Negative (NEGATIVE) mg/dL Urine Ketones Negative (NEGATIVE) mg/dL Urine Occult Blood Trace-intact H (NEGATIVE) Urine Nitrite Negative (NEGATIVE) Urine Bilirubin Negative (NEGATIVE) Urine Urobilinogen 0.2 (0.2) EU/dL Ur Leukocyte Esterase Negative (NEGATIVE) Urine RBC 0-5 (NOT SEEN) /HPF Urine WBC Not seen (NOT SEEN) /HPF Ur Squamous Epith Cells Rare (NEGATIVE) /HPF Urine Bacteria Rare (NEGATIVE) /HPF Urine Mucus Not seen (NEGATIVE) /LPF 01/22/20 01/22/20 01/23/20 Range/Units 20:40 20:40 07:38 WBC 10.9 H (4.0-10.0) x10^3/uL RBC 4.11 L (4.5-6.0) x10^6/uL Hgb 13.0 L (14.0-18.0) g/dL Hct 38.5 L (40.0-52.0) % MCV 93.7 H (78.0-93.0) fL MCH 31.6 (26.0-32.0) pg MCHC 33.8 (32.0-36.0) g/dL RDW Coeff of Anna 12.7 (10.0-15.0) % Plt Count 208 (130-400) x10^3/uL Neut % (Auto) 60.5 (50.0-80.0) % Lymph % (Auto) 22.7 L (25.0-50.0) % [place] % (Auto) 15.1 H (2.0-11.0) % Eos % (Auto) 1.5 (0.0-4.0) % Baso % (Auto) 0.2 (0.2-1.2) % Sodium (136-145) mmol/L Potassium (3.5-5.1) mmol/L Chloride (98-107) mmol/L Carbon Dioxide (21-32) mmol/L Anion Gap (10-20) mmol/L BUN (7-18) mg/dL Creatinine (0.70-1.30) mg/dL Est Cr Clr Drug Dosing mL/min Estimated GFR (MDRD) Glucose (74-106) mg/dL Lactic Acid 0.8 (0.4-2.0) mmol/L Calcium (8.5-10.1) mg/dL Corrected Calcium (8.5-10.1) mg/dL Total Bilirubin (0.2-1.0) mg/dL AST (15-37) U/L ALT (16-63) U/L Alkaline Phosphatase (46-116) U/L C-Reactive Protein (<=0.9) mg/dL Total Protein (6.4-8.2) g/dL Albumin (3.4-5.0) g/dL Globulin Albumin/Globulin Ratio Amylase 42 (25-115) U/L Lipase (73-393) U/L Urine Color (YELLOW) Urine Appearance (CLEAR) Urine pH (5.0-8.0) Ur Specific [place] Urine Protein (NEGATIVE) mg/dL Urine Glucose (UA) (NEGATIVE) mg/dL Urine Ketones (NEGATIVE) mg/dL Urine Occult Blood (NEGATIVE) Urine Nitrite (NEGATIVE) Urine Bilirubin (NEGATIVE) Urine Urobilinogen (0.2) EU/dL Ur Leukocyte Esterase (NEGATIVE) Urine RBC (NOT SEEN) /HPF Urine WBC (NOT SEEN) /HPF Ur Squamous Epith Cells (NEGATIVE) /HPF Urine Bacteria (NEGATIVE) /HPF Urine Mucus (NEGATIVE) /LPF 01/23/20 01/23/20 Range/Units 07:38 07:38 WBC (4.0-10.0) x10^3/uL RBC (4.5-6.0) x10^6/uL Hgb (14.0-18.0) g/dL Hct (40.0-52.0) % MCV (78.0-93.0) fL MCH (26.0-32.0) pg MCHC (32.0-36.0) g/dL RDW Coeff of Anna (10.0-15.0) % Plt Count (130-400) x10^3/uL Neut % (Auto) (50.0-80.0) % Lymph % (Auto) (25.0-50.0) % [place] % (Auto) (2.0-11.0) % Eos % (Auto) (0.0-4.0) % Baso % (Auto) (0.2-1.2) % Sodium 137 (136-145) mmol/L Potassium 4.1 (3.5-5.1) mmol/L Chloride 103 (98-107) mmol/L Carbon Dioxide 25 (21-32) mmol/L Anion Gap 13.1 (10-20) mmol/L BUN 11 (7-18) mg/dL Creatinine 1.2 (0.70-1.30) mg/dL Est Cr Clr Drug Dosing 54.93 mL/min Estimated GFR (MDRD) 59 Glucose 97 (74-106) mg/dL Lactic Acid 1.0 (0.4-2.0) mmol/L Calcium 8.4 L (8.5-10.1) mg/dL Corrected Calcium 9.36 (8.5-10.1) mg/dL Total Bilirubin 0.9 (0.2-1.0) mg/dL AST 16 (15-37) U/L ALT 11 L (16-63) U/L Alkaline Phosphatase 62 (46-116) U/L C-Reactive Protein 7.4 H (<=0.9) mg/dL Total Protein 6.3 L (6.4-8.2) g/dL Albumin 2.8 L (3.4-5.0) g/dL Globulin 3.5 Albumin/Globulin Ratio 0.80 Amylase 37 (25-115) U/L Lipase 119 (73-393) U/L Urine Color (YELLOW) Urine Appearance (CLEAR) Urine pH (5.0-8.0) Ur Specific [place] Urine Protein (NEGATIVE) mg/dL Urine Glucose (UA) (NEGATIVE) mg/dL Urine Ketones (NEGATIVE) mg/dL Urine Occult Blood (NEGATIVE) Urine Nitrite (NEGATIVE) Urine Bilirubin (NEGATIVE) Urine Urobilinogen (0.2) EU/dL Ur Leukocyte Esterase (NEGATIVE) Urine RBC (NOT SEEN) /HPF Urine WBC (NOT SEEN) /HPF Ur Squamous Epith Cells (NEGATIVE) /HPF Urine Bacteria (NEGATIVE) /HPF Urine Mucus (NEGATIVE) /LPF Med Orders - Current: Current Medications Atorvastatin Calcium (Lipitor) 40 mg PO DAILY [facility] Last Admin: 01/23/20 08:59 Dose: 40 mg Documented by: Enalapril Maleate (Vasotec) 5 mg PO DAILY [facility] Last Admin: 10/10/20 08:59 Dose: 5 mg Documented by: Hydrochlorothiazide (Hydrochlorothiazide) 12.5 mg PO DAILY [facility] Last Admin: 01/23/20 08:59 Dose: 12.5 mg Documented by: Hydromorphone HCl (Dilaudid) 0.5 mg IVPUSH Q4H PRN PRN Reason: Pain (severe 7-10) Last Admin: 01/23/20 12:16 Dose: 0.5 mg Documented by: Lactated Ringer's (Ringers, Lactated) 1,000 mls @ 75 mls/hr IV ASDIRECTED [facility] Ondansetron HCl (Zofran) 4 mg IV Q6H PRN PRN Reason: Nausea/Vomiting Sodium Chloride (Saline Flush) 10 ml FLUSH ASDIRECTED PRN PRN Reason: Keep Vein Open Last Admin: 01/23/20 12:15 Dose: 10 ml Documented by: Discontinued Medications Hydromorphone HCl (Dilaudid) 0.5 mg IV ONETIME ONE Stop: 01/22/20 22:36 Last Admin: 01/22/20 22:44 Dose: 0.5 mg Documented by: Lactated Ringer's (Ringers, Lactated) 1,000 mls @ 999 mls/hr IV ONETIME ONE Stop: 01/22/20 21:36 Last Admin: 01/22/20 20:45 Dose: 999 mls/hr Documented by: Lactated Ringer's (Ringers, Lactated) 1,000 mls @ 125 mls/hr IV ASDIRECTED [facility] Last Admin: 01/23/20 07:33 Dose: 125 mls/hr Documented by: Iopamidol (Isovue-300 (61%)) 100 ml IVPUSH ONETIME ONE Stop: 01/22/20 21:30 Last Admin: 01/22/20 21:29 Dose: 100 ml Documented by: Morphine Sulfate (Morphine) 2 mg IVPUSH ONETIME ONE Stop: 01/22/20 20:27 Last Admin: 01/22/20 20:50 Dose: 2 mg Documented by: Ondansetron HCl (Zofran) 4 mg IV ONETIME ONE Stop: 01/22/20 20:27 Last Admin: 01/22/20 20:48 Dose: 4 mg Documented by: - Exam General: Alert, Oriented HEENT: Pupils Equal, Pupils Reactive Neck: Supple Lungs: Clear to Auscultation, Normal Respiratory Effort Cardiovascular: Regular Rate, Regular Rhythm GI/Abdominal Exam: Normal Bowel Sounds, Soft, No Organomegaly, No Distention, Guarding (He still has some guarding in the epigastric region.), Tender (Some tenderness in the midepigastric region without rebound.). No: Rebound (Male) Exam: Deferred Back Exam: Normal Inspection Extremities: Normal Inspection, No Pedal Edema Peripheral Pulses: 2+: Radial (L), Radial (R), Posterior Tibial (L), Posterior Tibial (R), Dorsalis Pedis (L), Dorsalis Pedis (R) Skin: Warm, Dry, Intact Neurological: No New Focal Deficit Psy/Mental Status: Alert, Normal Affect, Normal Mood Sepsis Event Note - Evaluation Sepsis Screening Result: No Definite Risk - Focused Exam Vital Signs: Vital Signs Temp Pulse Resp BP BP Pulse Ox 01/23/20 13:57 98.3 F 58 L 16 119/58 L 93 L 01/23/20 10:00 98.3 F 50 L 16 115/58 L 95 01/23/20 08:59 114/64 01/23/20 06:12 97.6 F 58 L 16 114/64 97 - Problem List & Annotations (1) Pancreatitis, acute SNOMED Code(s): 256788081 Code(s): K85.90 - ACUTE PANCREATITIS WITHOUT NECROSIS OR INFECTION, UNSP Status: Acute Current Visit: No Qualifiers: Pancreatitis type: unspecified pancreatitis type Acute pancreatitis complication: unspecified Qualified Code(s): K85.90 - Acute pancreatitis without necrosis or infection, unspecified - Problem List Review Problem List Initiated/Reviewed/Updated: Yes - My Orders Last 24 Hours: My Active Orders 01/22/20 20:23 Sodium Chloride 0.9% [Saline Flush] 10 ml FLUSH ASDIRECTED PRN Peripheral IV Insertion Adult [OM.PC] Stat 01/22/20 22:13 Admission Status [Patient Status] [ADT] Routine 01/22/20 23:59 Height and Weight [RC] 07 August Shower [RC] ASDIRECTED Oxygen Therapy [RC] .PRN Up ad Trice [RC] 08,20 VTE/DVT Education [RC] .PRN Vital Signs [RC] 06,10,14,18,22,02 HYDROmorphone [Dilaudid] 0.5 mg IVPUSH Q4H PRN Ondansetron [Zofran] 4 mg IV Q6H PRN Resuscitation Status Routine 01/23/20 00:00 Intake and Output [RC] 06,18 Antiembolic Hose [OM.PC] Per Unit Routine 01/23/20 00:01 Antiembolic Devices [RC] 08,20 01/23/20 08:00 Enalapril [Vasotec] 5 mg PO DAILY atorvaSTATin [Lipitor] 40 mg PO DAILY hydroCHLOROthiazide 12.5 mg PO DAILY 01/23/20 15:33 Abdomen Pelvis w Cont [CT] Routine 01/23/20 15:45 Lactated Ringers @ 75 MLS/HR(1000ml) Lactated Ringers [Ringers, Lactated] 1,000 ml IV ASDIRECTED 01/23/20 Dinner Regular Diet [DIET] - Assessment Assessment:: A/P Mild focal acute pancreatitis-the patient's pain is still present. He is still requiring the Dilaudid every 4 hours. He is tolerating oral diet. CT scan reviewed by the radiologist this morning still has a similar concern of the acute pancreatitis but also recommends a repeat CT scan for follow-up. He still is quite uncomfortable with pain but he is tolerating oral intake quite well. We will increase him to a regular diet tonight for dinner and we will repeat his CAT scan in the morning as directed by radiology. Plan on discharge tomorrow home. His white blood cell count is almost back to normal. Lactic is negative. I am still really unsure of the nature of his pain but with the CT findings and the recent close family member with pancreatic cancer and his continued pain we will repeat the CT scan in the morning and plan on discharge if all is showing improvement. I will also decrease his fluids to 75mls/hr. Hx hypertension: Asa qd, vasotec 5mg qd. HCTZ 12.5mg qd. Hx CKD 3- GFR 54 today. Daily labs and hydration. Hx Hyperlipidemia, continue the home lipitor 40mg qd. Hx of prostate cancer, surgery without chemotherapy. VTE- Low risk. TEDS and short stay. Sepsis, lactic normal. WBC from pancreatitis will continue to follow with labs. Typically anti-biotics are not indicated for simple uncomplicated pancreatitis. Plan: CT scan repeat in the morning and plan and discharge after the CT in the morning if continued improvement.
[2020-01-24] MEDS: HYDROmorphone 0.5 MG/0.5 ML Syringe IVPUSH PRN ×2 (00:09→08:44)
[2020-01-24 06:05] VITALS: PULSE 61
[2020-01-24] MEDS ORDERED: Iopamidol 612 MG/ML 100 ML Bottle IVPUSH ONE (07:51)
[2020-01-24] MEDS: atorvaSTATin 40 MG Tab PO SCH (08:44)
[2020-01-24] MEDS: Hydrochlorothiazide 12.5 MG Cap PO SCH (08:44)
[2020-01-24] MEDS: Enalapril 5 MG Tab PO SCH (08:44)
[2020-01-24] MEDS: Sodium Chloride 0.9% 10 ML Syringe FLUSH PRN (08:44)
--- NOTE | 2020-01-24 08:45 | CT ---
[id number] CT/CT Abdomen Pelvis W IV EXAM: CT Abdomen Pelvis W IV CLINICAL DATA: ABDOMINAL PAIN COMPARISON: CORRELATION IS MADE WITH JANUARY 22, 2020 FINDINGS: Slight fullness in the region of the uncinate process of the pancreas is seen The liver and spleen, adrenals, aorta, kidneys, and pancreas show no acute abnormalities Renal cysts again are seen The pelvis shows no mass or adenopathy There is diverticulosis without diverticulitis There is no evidence of appendicitis Fibrotic changes are seen at the lung bases IMPRESSION: NO NEW FINDINGS Andrae Goetz MD 01/24/20 0844 Thank you for allowing us to participate in the care of your patient.
[2020-01-24] MEDS ORDERED: GI Cocktail Oral Solution 30 ML PO ONE (09:12)
[2020-01-24 09:27] LABS: ANION GAP 11.3 mmol/L (10-20)
[2020-01-24 10:19] VITALS: BP 122/67
[2020-01-24] MEDS ORDERED: Non-Formulary Medication 1 Each (Epinephrine [Epipen 2-Pak] 0.3 ML) IM PRN (12:38)
[2020-01-24] MEDS ORDERED: TADALAFIL 20 MG PO PRN (12:38)
[2020-01-24] MEDS ORDERED: DESOXIMETASONE TP PRN (12:38)
[2020-01-24] MEDS ORDERED: Clobetasol 0.05% Crm 30 GM Tube TOP PRN (12:38)
--- NOTE | 2020-01-24 12:38 | PCM.DCSUM1 ---
Discharge Summary - Hospital Course Diagnosis: Stroke: No - Discharge Data Discharge Date: 01/24/20 Discharge Disposition: Home, Self-Care 01 Condition: Stable - Referral to Home Health Primary Care Physician: PCP None - Discharge Diagnosis/Problem(s) (1) Pancreatitis, acute SNOMED Code(s): 153155054 ICD Code: K85.90 - ACUTE PANCREATITIS WITHOUT NECROSIS OR INFECTION, UNSP Status: Acute Qualifiers: Pancreatitis type: unspecified pancreatitis type Acute pancreatitis complication: unspecified Qualified Code(s): K85.90 - Acute pancreatitis without necrosis or infection, unspecified (2) Pancreatic mass SNOMED Code(s): 514834999 ICD Code: K86.89 - OTHER SPECIFIED DISEASES OF PANCREAS Status: Acute (3) GERD (gastroesophageal reflux disease) SNOMED Code(s): 831686031 ICD Code: K21.9 - GASTRO-ESOPHAGEAL REFLUX DISEASE WITHOUT ESOPHAGITIS Status: Acute (4) GERD (gastroesophageal reflux disease) SNOMED Code(s): 291974892 ICD Code: K21.9 - GASTRO-ESOPHAGEAL REFLUX DISEASE WITHOUT ESOPHAGITIS Status: Acute - Patient Summary/Data Hospital Course: This patient was admitted under the hospital for observation with concerns of abdominal pain and mild pancreatitis. This patient was admitted through the emergency department with complaints of epigastric and abdominal pain with CT findings concerning for acute mild focal pancreatitis. Although the patient had a normal lipase and amylase he did have an elevated white blood cell count. He had continued pain in the emergency department is quite was uncomfortable and I was unsure of the process of his pancreatitis diagnosed by CT scan as well as normal enzymes. He was monitored overnight and given hydration and pain management. His white blood cell count has returned to normal. His amylase and lipase is a normal as well as his liver enzymes. He has received Dilaudid every 4 hours for his continued pain in his abdomen. Diet has been advanced from clear to full to a regular diet his pain is not gotten worse. His pain is actually quite a bit better after the last 2 days. This morning I did try a GI cocktail with complete resolution of his pain as well. He does have a history of gastroesophageal reflux disease. He does have concern for pancreatic cancer and with this finding of a questionable mass on the repeat CT scan of the uncinate process of the pancreas I would agree with him. Also has a close relative of direct family descent that just recently from pancreatic cancer as well. Although at this time his pain is getting better we will discharge him home. Have him follow-up with primary care clinic to get an MRI of his abdomen for further evaluation of this mass on his pancreas. Send him home with some pain management as well. Diet as tolerated. We will also increase his omeprazole from 10 mg to 20 mg a day. Start him on Carafate 4 times a day. - Patient Instructions Diet: Regular Diet as Tolerated Activity: As Tolerated Driving: May Drive Today Showering/Bathing: May Shower Notify Provider of: Increased Pain, Nausea and/or Vomiting Other/Special Instructions: Diet as tolerated, try to stay away from fatty or greasy foods. Rest. Plenty of fluids over the next few days. Continue your home medications as well. We will increase your Omeprazole to 20mg a day. RX sent to [facility]. Start Carafate 1 tablet 4 times a day before meals and bed time. RX to [facility]. Tylenol as needed for pain. If pain not controlled with above. [place] 5/325, 1 tablet every 6 hrs with food as needed for pain. Caution sedation. RX sent to [facility]. Call Saturday or Saturday to make follow up appointment in the clinic for 1 week for recheck. Recheck sooner if any concerns. - Discharge Plan *PRESCRIPTION DRUG MONITORING PROGRAM REVIEWED*: Not Applicable *COPY OF PRESCRIPTION DRUG MONITORING REPORT IN PATIENT SHANTANU: Not Applicable Prescriptions/Med Rec: Sucralfate [Carafate] 1 gm PO QIDACANDBED #120 tablet Hydrocodone/Acetaminophen [[place] 5-325 Tablet] 1 each PO Q6HR #10 tablet Omeprazole 20 mg PO DAILY #30 tablet. Home Medications: Home Meds tadalafiL [Cialis] 20 mg PO DAILY PRN 08/12/14 [History] Enalapril/Hydrochlorothiazide [Enalapril-HCTZ 5-12.5 MG] 1 each PO DAILY 07/21/16 [History] Clobetasol [Clobetasol Propionate 0.05%] 30 gm TOP ASDIRECTED PRN 11/18/17 [History] Desoximetasone [Topicort] 15 gm TP ASDIRECTED PRN 11/18/17 [History] EPINEPHrine [Epipen 2-Jeremias] 0.3 ml IM ASDIRECTED PRN 11/18/17 [History] atorvaSTATin [Lipitor] 40 mg PO DAILY 01/22/20 [History] Aspirin [Halfprin] 81 mg PO DAILY 01/23/20 [History] Cholecalciferol (Vitamin D3) [Vitamin D3] 25 mcg PO DAILY 01/23/20 [History] hydroCHLOROthiazide [Hydrochlorothiazide] 12.5 mg PO DAILY 01/23/20 [History] Hydrocodone/Acetaminophen [[place] 5-325 Tablet] 1 each PO Q6HR #10 tablet 01/24/20 [Rx] Omeprazole 10 mg PO DAILY 01/24/20 [History] Omeprazole 20 mg PO DAILY #30 tablet. 01/24/20 [Rx] Sucralfate [Carafate] 1 gm PO QIDACANDBED #120 tablet 01/24/20 [Rx] Forms: ED Department Discharge Referrals: PCP,None [Ordering Only Provider] - - Discharge Summary/Plan Comment DC Time >30 min.: Yes - General Info Admission Dx/Problem (Free Text: Pancreatitis abd pain. Subjective Update: The patient continues to have the epigastric abdominal pain although it is much improved. He has had no nausea or vomiting. He has tolerated the increase of his diet to a full regular diet. He is requiring the Dilaudid every 4 hours. Although he is complaining of some heartburn type symptoms today. He has no chest pain no shortness of breath or difficulty breathing. No cough or congestion. No weakness dizziness lightheadedness. He denies any fever or chills. He denies any hematuria dysuria or urinary frequency. He has been having regular bowel movements. Functional Status: Reports: Tolerating Diet - Patient Data Vitals - Most Recent: Last Vital Signs Temp 97.4 F 01/24/20 10:00 Pulse 61 01/24/20 10:00 Resp 12 01/24/20 10:00 BP 122/67 01/24/20 10:00 Pulse Ox 95 01/24/20 10:00 Weight - Most Recent: 172 lb 9.6 oz I&O - Last 24 hours: Intake & Output 01/23/20 01/24/20 01/24/20 22:59 06:59 14:59 Intake Total 240 1100 360 Balance 240 1100 360 Imaging Impressions - Last 24 hrs: Repeat CT scan today from radiology is still a slight fullness in the region of the unconnected process of the pancreas is seen. The inflammatory streaking is resolved but the slight fullness is stayed the same. Rest of the CT scan is unremarkable. Lab Results - Last 24 hrs: Laboratory Results - last 24 hr 01/24/20 01/24/20 Range/Units 08:55 08:55 WBC 8.3 (4.0-10.0) x10^3/uL RBC 4.09 L (4.5-6.0) x10^6/uL Hgb 13.0 L (14.0-18.0) g/dL Hct 38.7 L (40.0-52.0) % MCV 94.6 H (78.0-93.0) fL MCH 31.8 (26.0-32.0) pg MCHC 33.6 (32.0-36.0) g/dL RDW Coeff of Anna 12.7 (10.0-15.0) % Plt Count 180 (130-400) x10^3/uL Neut % (Auto) 64.8 (50.0-80.0) % Lymph % (Auto) 19.4 L (25.0-50.0) % [place] % (Auto) 13.0 H (2.0-11.0) % Eos % (Auto) 2.2 (0.0-4.0) % Baso % (Auto) 0.6 (0.2-1.2) % Sodium 136 (136-145) mmol/L Potassium 4.3 (3.5-5.1) mmol/L Chloride 102 (98-107) mmol/L Carbon Dioxide 27 (21-32) mmol/L Anion Gap 11.3 (10-20) mmol/L BUN 13 (7-18) mg/dL Creatinine 1.4 H (0.70-1.30) mg/dL Est Cr Clr Drug Dosing 47.08 mL/min Estimated GFR (MDRD) 49 Glucose 125 H (74-106) mg/dL Calcium 8.8 (8.5-10.1) mg/dL Corrected Calcium 9.84 (8.5-10.1) mg/dL Total Bilirubin 0.6 (0.2-1.0) mg/dL AST 20 (15-37) U/L ALT 11 L (16-63) U/L Alkaline Phosphatase 58 (46-116) U/L C-Reactive Protein 8.8 H (<=0.9) mg/dL Total Protein 6.4 (6.4-8.2) g/dL Albumin 2.7 L (3.4-5.0) g/dL Globulin 3.7 Albumin/Globulin Ratio 0.73 Lipase 113 (73-393) U/L Med Orders - Current: Current Medications Atorvastatin Calcium (Lipitor) 40 mg PO DAILY [facility] Last Admin: 01/24/20 08:44 Dose: 40 mg Documented by: Enalapril Maleate (Vasotec) 5 mg PO DAILY [facility] Last Admin: 01/24/20 08:44 Dose: 5 mg Documented by: Hydrochlorothiazide (Hydrochlorothiazide) 12.5 mg PO DAILY [facility] Last Admin: 01/24/20 08:44 Dose: 12.5 mg Documented by: Hydromorphone HCl (Dilaudid) 0.5 mg IVPUSH Q4H PRN PRN Reason: Pain (severe 7-10) Last Admin: 01/24/20 08:44 Dose: 0.5 mg Documented by: Lactated Ringer's (Ringers, Lactated) 1,000 mls @ 75 mls/hr IV ASDIRECTED [facility] Last Admin: 01/23/20 19:07 Dose: 75 mls/hr Documented by: Ondansetron HCl (Zofran) 4 mg IV Q6H PRN PRN Reason: Nausea/Vomiting Sodium Chloride (Saline Flush) 10 ml FLUSH ASDIRECTED PRN PRN Reason: Keep Vein Open Last Admin: 01/24/20 08:44 Dose: 10 ml Documented by: Discontinued Medications Al Hydroxide/Mg Hydroxide (Gi Cocktail) 30 ml PO ONETIME ONE Stop: 01/24/20 09:13 Last Admin: 01/24/20 09:50 Dose: 30 ml Documented by: Hydromorphone HCl (Dilaudid) 0.5 mg IV ONETIME ONE Stop: 01/22/20 22:36 Last Admin: 01/22/20 22:44 Dose: 0.5 mg Documented by: Lactated Ringer's (Ringers, Lactated) 1,000 mls @ 999 mls/hr IV ONETIME ONE Stop: 01/22/20 21:36 Last Admin: 01/22/20 20:45 Dose: 999 mls/hr Documented by: Lactated Ringer's (Ringers, Lactated) 1,000 mls @ 125 mls/hr IV ASDIRECTED [facility] Last Admin: 01/23/20 07:33 Dose: 125 mls/hr Documented by: Iopamidol (Isovue-300 (61%)) 100 ml IVPUSH ONETIME ONE Stop: 01/22/20 21:30 Last Admin: 01/22/20 21:29 Dose: 100 ml Documented by: Iopamidol (Isovue-300 (61%)) 100 ml IVPUSH ONETIME ONE Stop: 01/24/20 07:52 Last Admin: 01/24/20 08:14 Dose: 100 ml Documented by: Morphine Sulfate (Morphine) 2 mg IVPUSH ONETIME ONE Stop: 01/22/20 20:27 Last Admin: 01/22/20 20:50 Dose: 2 mg Documented by: Ondansetron HCl (Zofran) 4 mg IV ONETIME ONE Stop: 01/22/20 20:27 Last Admin: 01/22/20 20:48 Dose: 4 mg Documented by: - Exam General: Reports: Alert, Oriented HEENT: Reports: Pupils Equal, Pupils Reactive Neck: Reports: Supple Lungs: Reports: Clear to Auscultation, Normal Respiratory Effort Cardiovascular: Reports: Regular Rate, Regular Rhythm GI/Abdominal Exam: Normal Bowel Sounds, Soft, Pelvis Stable, Tender (Is very slight mild tenderness in the epigastric and mid line abdomen without any rebound guarding or rigidity. This is much improved even from yesterday.) (Male) Exam: Deferred Rectal (Males) Exam: Deferred Back Exam: Reports: Normal Inspection, Full Range of Motion Extremities: Normal Inspection, Normal Range of Motion, No Pedal Edema, Normal Capillary Refill Skin: Reports: Warm, Dry, Intact Neurological: Reports: No New Focal Deficit Psy/Mental Status: Reports: Alert, Normal Affect, Normal Mood
[2020-01-24] MEDS ORDERED: Take Home: Acetaminophen/HYDROcodone 325-5 MG, 5 Tab Pack PO ONE (13:41)
[2020-01-24] MEDS ORDERED: Sucralfate 1 GM Tab PO ONE (13:44)
[2020-01-25] MEDS ORDERED: Cholecalciferol (Vitamin D3) 25 MCG Tab PO SCH (08:00)
[2020-01-25] MEDS ORDERED: Aspirin 81 MG Tab.EC PO SCH (08:00)
[2020-01-25] MEDS ORDERED: Hydrochlorothiazide 12.5 MG Cap PO SCH (08:00)
== END 2020-01-24 14:00 | disposition home or self-care (01) ==
LOC: VM.ED 19:45 → INTOOBSV 23:58 → VM.MS 23:58
PROVIDERS: ADMIT Nurse Practitioner Family; ATTEND Nurse Practitioner Family
DX: K85.90 Acute pancreatitis without necrosis or infection, unspecified (principal); K86.89 Other specified diseases of pancreas; K21.9 Gastro-esophageal reflux disease without esophagitis; E78.00 Pure hypercholesterolemia, unspecified; I12.9 Hypertensive chronic kidney disease with stage 1 through stage 4 chronic kidney disease, or unspecified chronic kidney disease; N18.30 Chronic kidney disease, stage 3 unspecified; Z98.890 Other specified postprocedural states; Z91.030 Bee allergy status; Z79.899 Other long term (current) drug therapy
CPT/HCPCS: 36415; 74177; 80053; 81001; 82150; 83605; 83690; 85025; 86140; 96361; 96374; 96375; 96376; 99285-25; A9270-GY; G0378; J1170; J2270; J2405; J7120; Q9967

== ENCOUNTER 2020-02-27 17:21 | Observation (INO) | payer MEDICARE, OTHER ==
[2020-02-27] MEDS ORDERED: GI Cocktail Oral Solution 30 ML PO ONE (18:14)
[2020-02-27] MEDS ORDERED: Sodium Chloride 0.9% 10 ML Syringe FLUSH PRN ×2 (18:14→19:30)
--- NOTE | 2020-02-27 18:21 | EDM.PDOC ---
ED HPI GENERAL MEDICAL PROBLEM - General Chief Complaint: Abdominal Pain Stated Complaint: STOMACH PAIN Time Seen by Provider: 02/27/20 18:02 Source of Information: Reports: Patient - History of Present Illness INITIAL COMMENTS - FREE TEXT/NARRATIVE: Federico is a 75 y/o male who comes to the ER with complaints of epigastric abdominal pain. He reports eating BBQ ribs and a baked potato last night baout 6 pm adn then at 10 pm he started to have this epigastric discomfort. He tried some PeptoBismol with little relief, then early this AM he tried a couple Tylenol. He has continued to have the pain all day and he is worried about trying to sleep. The pain is worse when he lays down to rest and it hurts if he puts pressure in the epigastric region. No vomiting today, but did have nausea and vomiting x 1 last night. Epigastric Pain Score (Numeric/FACES): 6 - Related Data Allergies Allergy/AdvReac Type Severity Reaction Status Date / Time bee venom protein (honey bee) Allergy Severe Anaphylactic Verified 02/27/20 17:48 Shock Home Meds: Home Meds tadalafiL [Cialis] 20 mg PO DAILY PRN 08/12/14 [History] Clobetasol [Clobetasol Propionate 0.05%] 30 gm TOP ASDIRECTED PRN 11/18/17 [History] Desoximetasone [Topicort] 15 gm TP ASDIRECTED PRN 11/18/17 [History] EPINEPHrine [Epipen 2-Jeremias] 0.3 ml IM ASDIRECTED PRN 11/18/17 [History] atorvaSTATin [Lipitor] 40 mg PO DAILY 01/22/20 [History] Aspirin [Halfprin] 81 mg PO DAILY 01/23/20 [History] Cholecalciferol (Vitamin D3) [Vitamin D3] 25 mcg PO DAILY 01/23/20 [History] hydroCHLOROthiazide [Hydrochlorothiazide] 12.5 mg PO DAILY 01/23/20 [History] Omeprazole 20 mg PO DAILY #30 tablet. 01/24/20 [Rx] Sucralfate [Carafate] 1 gm PO QIDACANDBED #120 tablet 01/24/20 [Rx] Enalapril [Vasotec] 5 mg PO DAILY 02/27/20 [History] Past Medical History HEENT History: Reports: Hard of Hearing, Impaired Vision Other HEENT History: hx traumatic subdural hematoma Cardiovascular History: Reports: High Cholesterol, Hypertension Other Cardiovascular History: episodic lightheadedness Other Respiratory History: former smoker Gastrointestinal History: Reports: Colon Polyp, GERD, Pancreatitis Genitourinary History: Reports: Prostate Disorder, UTI, Recurrent Other Musculoskeletal History: plantar faciitis Neurological History: Reports: None Other Psychiatric History: alcoholism in remission Other Endocrine/Metabolic History: impaired fasting glucose Hematologic History: Reports: None Immunologic History: Reports: None Oncologic (Cancer) History: Reports: Prostate Dermatologic History: Reports: Psoriasis - Infectious Disease History Infectious Disease History: Reports: None - Past Surgical History Head Surgeries/Procedures: Reports: None GI Surgical History: Reports: Appendectomy, Colonoscopy Male Surgical History: Reports: Prostate Biopsy, Prostatectomy Other Male Surgeries/Procedures: erectile disfunction Oncologic Surgical History: Reports: Other (See Below) Other Oncologic Surgeries/Procedures: prostatectomy Social & Family History - Family History Family Medical History: Unobtainable Cardiac: Reports: None - Tobacco Use Tobacco Use Status *Q: Former Tobacco User Used Tobacco, but Quit: Yes Month/Year Tobacco Last Used: 2006 - Caffeine Use Caffeine Use: Reports: Coffee, Soda Review of Systems - Review of Systems Review Of Systems: See Below Constitutional: Reports: No Symptoms Eyes: Reports: No Symptoms Ears: Reports: No Symptoms Nose: Reports: No Symptoms Mouth/Throat: Reports: No Symptoms Respiratory: Reports: No Symptoms GI/Abdominal: Reports: Abdominal Pain (Epigastric), Decreased Appetite, Nausea, Vomiting Genitourinary: Reports: No Symptoms Musculoskeletal: Reports: No Symptoms Skin: Reports: No Symptoms Neurological: Reports: No Symptoms Psychiatric: Reports: No Symptoms ED EXAM, GENERAL - Physical Exam Exam: See Below General Appearance: Alert, WD/WN, No Apparent Distress (Elderly male) Ears: Hearing Grossly Normal Nose: Normal Inspection, No Blood Throat/Mouth: Normal Inspection, Normal Lips, Normal Voice Head: Atraumatic, Normocephalic Neck: Supple Respiratory/Chest: No Respiratory Distress, Lungs Clear, Normal Breath Sounds, No Accessory Muscle Use, Chest Non-Tender Cardiovascular: Normal Peripheral Pulses, Regular Rate, Rhythm GI/Abdominal: Soft, No Distention, Tender (Epigastric region, no peritoneal sx. BS slightly hyperactive.) (Male) Exam: Deferred Rectal (Males) Exam: Deferred Back Exam: Normal Inspection Extremities: Normal Inspection, Normal Capillary Refill Neurological: Alert, Oriented, CN II-XII Intact, Normal Cognition, No Motor/Sensory Deficits Psychiatric: Normal Affect, Normal Mood Skin Exam: Warm, Dry, Intact, Normal Color Lymphatic: No Adenopathy #1 Interpretation EKG Date: 02/27/20 Time: 17:36 Rhythm: Other (Sinus Bradycardia) Rate (Beats/Min): 58 [place]: Normal P-Wave: Present QRS: Normal ST-T: Normal QT: Normal Course - Vital Signs Text/Narrative:: 1801 The patient was seen by the [facility]. EKG done and Sinus Bradycardia noted. Labs ordered. Will check a COVID. He was given a GI Cocktail. 1924 Still having some epigastric discomfort. Labs reviewed. Note WBC=15.0, Toclle=038. Patient now nauseated. IV fluids and Zofran 4 mg IVP ordered along with a CT Abd/Pelvis W. Suspect recurrent pancreatitis. 2034 CT results reviewed. Note Acute Pancreatitis. [facility] contacted for transport of patient since he was seen here approximately 1 month ago and admitted to Observation with the same dx. Case was presented, but [place] currently on diversion. Will plan to admit this patient to Observation tonight, then recontact [facility] in the AM and request transfer. This patient needs transfer for Specialty consult since he is back with recurrent sx within a month. He had an MRI of his abdomen on 02/01/2020 and this was a normal study. Note labs tonight look worse than previously. Will admit him on IV fluids, pain meds, and antiemetics. Will keep him NPO and repeat labs in the AM. Noted WBC=15.0, since we are not able to transfer him at this time will start him on a course of Zosyn. Last Recorded V/S: Last Vital Signs Temp 36.6 C 02/27/20 17:52 Pulse 69 02/27/20 17:52 Resp 16 02/27/20 17:52 BP 145/70 H 02/27/20 17:52 Pulse Ox 99 02/27/20 17:52 - Orders/Labs/Meds Orders: Active Orders 24 hr Category Date Time Status Patient Status [ADT] Routine ADT 02/27/20 20:50 Ordered EKG Documentation Completion [RC] STAT Care 02/27/20 18:13 Active Abdomen Pelvis w Cont [CT] Stat Exams 02/27/20 19:30 Taken Sodium Chloride 0.9% [Saline Flush] Med 02/27/20 18:14 Active 10 ml FLUSH ASDIRECTED PRN Sodium Chloride 0.9% [Saline Flush] Med 02/27/20 19:30 Active 10 ml FLUSH ASDIRECTED PRN Saline Lock Insert [OM.PC] Stat Oth 02/27/20 18:13 Ordered Saline Lock Insert [OM.PC] Stat Oth 02/27/20 19:30 Ordered Medication Orders Sodium Chloride (Saline Flush) 10 ml FLUSH ASDIRECTED PRN PRN Reason: Keep Vein Open Sodium Chloride (Saline Flush) 10 ml FLUSH ASDIRECTED PRN PRN Reason: Keep Vein Open Labs: Laboratory Tests 02/27/20 02/27/20 02/27/20 Range/Units 18:10 18:18 18:53 WBC 15.0 H (4.0-10.0) x10^3/uL RBC 4.26 L (4.5-6.0) x10^6/uL Hgb 13.3 L (14.0-18.0) g/dL Hct 39.2 L (40.0-52.0) % MCV 92.0 (78.0-93.0) fL MCH 31.2 (26.0-32.0) pg MCHC 33.9 (32.0-36.0) g/dL RDW Coeff of Anna 12.9 (10.0-15.0) % Plt Count 186 (130-400) x10^3/uL Neut % (Auto) 73.3 (50.0-80.0) % Lymph % (Auto) 14.2 L (25.0-50.0) % [place] % (Auto) 11.8 H (2.0-11.0) % Eos % (Auto) 0.6 (0.0-4.0) % Baso % (Auto) 0.1 L (0.2-1.2) % PT (9.5-12.3) SEC INR (2.0-3.5) Sodium (136-145) mmol/L Potassium (3.5-5.1) mmol/L Chloride (98-107) mmol/L Carbon Dioxide (21-32) mmol/L Anion Gap (10-20) mmol/L BUN (7-18) mg/dL Creatinine (0.70-1.30) mg/dL Est Cr Clr Drug Dosing mL/min Estimated GFR (MDRD) Glucose (74-106) mg/dL Calcium (8.5-10.1) mg/dL Corrected Calcium (8.5-10.1) mg/dL Magnesium (1.8-2.4) mg/dL Total Bilirubin (0.2-1.0) mg/dL AST (15-37) U/L ALT (16-63) U/L Alkaline Phosphatase (46-116) U/L Troponin I (<=0.056) ng/mL Total Protein (6.4-8.2) g/dL Albumin (3.4-5.0) g/dL Globulin Albumin/Globulin Ratio Amylase (25-115) U/L Lipase (73-393) U/L Urine Color Yellow (YELLOW) Urine Appearance Clear (CLEAR) Urine pH 6.0 (5.0-8.0) Ur Specific [place] 1.010 Urine Protein Negative (NEGATIVE) mg/dL Urine Glucose (UA) Negative (NEGATIVE) mg/dL Urine Ketones Negative (NEGATIVE) mg/dL Urine Occult Blood Small H (NEGATIVE) Urine Nitrite Negative (NEGATIVE) Urine Bilirubin Negative (NEGATIVE) Urine Urobilinogen 0.2 (0.2) EU/dL Ur Leukocyte Esterase Negative (NEGATIVE) Urine RBC 0-5 (NOT SEEN) /HPF Urine WBC 0-5 (NOT SEEN) /HPF Ur Squamous Epith Cells Rare (NEGATIVE) /HPF Urine Bacteria Not seen (NEGATIVE) /HPF Urine Mucus Not seen (NEGATIVE) /LPF SARS CoV-2 RNA Rapid VIRIDIANA Negative (NEGATIVE) 02/27/20 02/27/20 Range/Units 18:53 18:53 WBC (4.0-10.0) x10^3/uL RBC (4.5-6.0) x10^6/uL Hgb (14.0-18.0) g/dL Hct (40.0-52.0) % MCV (78.0-93.0) fL MCH (26.0-32.0) pg MCHC (32.0-36.0) g/dL RDW Coeff of Anna (10.0-15.0) % Plt Count (130-400) x10^3/uL Neut % (Auto) (50.0-80.0) % Lymph % (Auto) (25.0-50.0) % [place] % (Auto) (2.0-11.0) % Eos % (Auto) (0.0-4.0) % Baso % (Auto) (0.2-1.2) % PT 10.9 (9.5-12.3) SEC INR 1.0 L (2.0-3.5) Sodium 129 L* (136-145) mmol/L Potassium 3.6 (3.5-5.1) mmol/L Chloride 95 L (98-107) mmol/L Carbon Dioxide 24 (21-32) mmol/L Anion Gap 13.6 (10-20) mmol/L BUN 20 H (7-18) mg/dL Creatinine 1.3 (0.70-1.30) mg/dL Est Cr Clr Drug Dosing 49.91 mL/min Estimated GFR (MDRD) 54 Glucose 116 H (74-106) mg/dL Calcium 8.6 (8.5-10.1) mg/dL Corrected Calcium 9.16 (8.5-10.1) mg/dL Magnesium 1.7 L (1.8-2.4) mg/dL Total Bilirubin 0.7 (0.2-1.0) mg/dL AST 23 (15-37) U/L ALT 13 L (16-63) U/L Alkaline Phosphatase 73 (46-116) U/L Troponin I < 0.017 (<=0.056) ng/mL Total Protein 7.3 (6.4-8.2) g/dL Albumin 3.3 L (3.4-5.0) g/dL Globulin 4.0 Albumin/Globulin Ratio 0.83 Amylase 62 (25-115) U/L Lipase 419 H (73-393) U/L Urine Color (YELLOW) Urine Appearance (CLEAR) Urine pH (5.0-8.0) Ur Specific [place] Urine Protein (NEGATIVE) mg/dL Urine Glucose (UA) (NEGATIVE) mg/dL Urine Ketones (NEGATIVE) mg/dL Urine Occult Blood (NEGATIVE) Urine Nitrite (NEGATIVE) Urine Bilirubin (NEGATIVE) Urine Urobilinogen (0.2) EU/dL Ur Leukocyte Esterase (NEGATIVE) Urine RBC (NOT SEEN) /HPF Urine WBC (NOT SEEN) /HPF Ur Squamous Epith Cells (NEGATIVE) /HPF Urine Bacteria (NEGATIVE) /HPF Urine Mucus (NEGATIVE) /LPF SARS CoV-2 RNA Rapid VIRIDIANA (NEGATIVE) Meds: Medications Generic Name Dose Route Start Last Admin Trade Name Freq PRN Reason Stop Dose Admin Sodium Chloride 10 ml 02/27/20 18:14 Saline Flush FLUSH ASDIRECTED PRN Keep Vein Open Sodium Chloride 10 ml 02/27/20 19:30 Saline Flush FLUSH ASDIRECTED PRN Keep Vein Open Discontinued Medications Generic Name Dose Route Start Last Admin Trade Name Freq PRN Reason Stop Dose Admin Al Hydroxide/Mg Hydroxide 30 ml 02/27/20 18:14 02/27/20 18:48 Gi Cocktail PO 02/27/20 18:15 30 ml ONETIME ONE Administration Sodium Chloride 1,000 mls @ 999 mls/hr 02/27/20 19:30 02/27/20 20:06 Normal Saline IV 02/27/20 20:30 999 mls/hr ONETIME ONE Administration Iopamidol 100 ml 02/27/20 19:43 02/27/20 20:17 Isovue-300 (61%) IVPUSH 02/27/20 19:44 100 ml ONETIME ONE Administration Ondansetron HCl 4 mg 02/27/20 19:30 02/27/20 20:04 Zofran IVPUSH 02/27/20 19:31 4 mg ONETIME ONE Administration - Radiology Interpretation Free Text/Narrative:: CT Abdomen/Pelvis W= Early Acute Pancreatitis (See Final Radiology Report) Departure - Departure Time of Disposition: 18:02 Disposition: Refer to Observation Clinical Impression: Pancreatitis Qualifiers: Chronicity: acute Pancreatitis type: unspecified pancreatitis type Acute pancreatitis complication: unspecified Qualified Code(s): K85.90 - Acute pancreatitis without necrosis or infection, unspecified - Discharge Information Referrals: Trudy Stephens MD [Primary Care Provider] - Forms: ED Department Discharge Sepsis Event Note (ED) - Evaluation Sepsis Screening Result: No Definite Risk - Focused Exam Vital Signs: Vital Signs Temp Pulse Resp BP Pulse Ox 02/27/20 17:52 36.6 C 69 16 145/70 H 99 - My Orders Last 24 Hours: My Active Orders 02/27/20 18:13 EKG Documentation Completion [RC] STAT Saline Lock Insert [OM.PC] Stat 02/27/20 18:14 Sodium Chloride 0.9% [Saline Flush] 10 ml FLUSH ASDIRECTED PRN 02/27/20 19:30 Abdomen Pelvis w Cont [CT] Stat Sodium Chloride 0.9% [Saline Flush] 10 ml FLUSH ASDIRECTED PRN Saline Lock Insert [OM.PC] Stat 02/27/20 20:50 Patient Status [ADT] Routine - Assessment/Plan Last 24 Hours: My Active Orders 02/27/20 18:13 EKG Documentation Completion [RC] STAT Saline Lock Insert [OM.PC] Stat 02/27/20 18:14 Sodium Chloride 0.9% [Saline Flush] 10 ml FLUSH ASDIRECTED PRN 02/27/20 19:30 Abdomen Pelvis w Cont [CT] Stat Sodium Chloride 0.9% [Saline Flush] 10 ml FLUSH ASDIRECTED PRN Saline Lock Insert [OM.PC] Stat 02/27/20 20:50 Patient Status [ADT] Routine Assessment:: 1)Acute Pancreatitis, Recurrent Plan: -Admit to Observation -See orders -Plan to contact [facility] in the AM to see if bed available
[2020-02-27 19:24] LABS: CHLORIDE,CL 95 mmol/L (98-107)
[2020-02-27 19:26] LABS: ANION GAP 13.6 mmol/L (10-20); SODIUM,NA 129 mmol/L (136-145)
[2020-02-27] MEDS ORDERED: Sodium Chloride 0.9% 1,000 ML IV ONE (19:30)
[2020-02-27] MEDS ORDERED: Ondansetron 4 MG/2 ML SDV IVPUSH ONE (19:30)
[2020-02-27] MEDS ORDERED: Iopamidol 612 MG/ML 100 ML Bottle IVPUSH ONE (19:43)
[2020-02-27] MEDS ORDERED: Promethazine 12.5 MG in Sodium Chloride 0.9% 100 ML IV PRN (21:05)
[2020-02-27] MEDS ORDERED: Temazepam 15 MG Cap PO PRN (21:05)
[2020-02-27] MEDS ORDERED: HYDROmorphone 1 MG/ML Syringe IVPUSH PRN (21:05)
[2020-02-27] MEDS ORDERED: Ketorolac 30 MG/ML SDV IVPUSH PRN ×2 (21:05→23:04)
[2020-02-27] MEDS ORDERED: Sodium Chloride 0.9% 1,000 ML IV SCH (21:15)
[2020-02-27] MEDS: Piperacillin/Tazobactam 3.375 GM in Sodium Chloride 0.9% 100 ML IV SCH (21:56)
[2020-02-27] MEDS: Ondansetron 4 MG/2 ML SDV IVPUSH PRN (22:49)
[2020-02-28] MEDS: Piperacillin/Tazobactam 3.375 GM in Sodium Chloride 0.9% 100 ML IV SCH (05:50)
[2020-02-28] MEDS ORDERED: Enalapril 5 MG Tab PO SCH (08:00)
[2020-02-28] MEDS ORDERED: Non-Formulary Medication 1 Each (Hydrochlorothiazide [Hydrochlorothiazide] 12.5 MG) PO SCH (08:00)
[2020-02-28] MEDS: Ondansetron 4 MG/2 ML SDV IVPUSH PRN (09:25)
--- NOTE | 2020-02-28 09:37 | PCM.PN ---
- General Info Date of Service: 02/28/20 Admission Dx/Problem (Free Text): 1)Acute Pancreatitis, Recurrent Subjective Update: Patient reports resting well from the pain meds. Epigastric pain in better and not as "sharp" as it was yesterday. Has remained NPO since ER admission. No fevers. Functional Status: Reports: Pain Controlled - Review of Systems General: Reports: No Symptoms HEENT: Reports: No Symptoms Pulmonary: Reports: No Symptoms Cardiovascular: Reports: No Symptoms Gastrointestinal: Reports: Abdominal Pain (Epigastric, improved) Genitourinary: Reports: No Symptoms Musculoskeletal: Reports: No Symptoms Skin: Reports: No Symptoms Neurological: Reports: No Symptoms Psychiatric: Reports: No Symptoms - Patient Data Vitals - Most Recent: Last Vital Signs Temp 36.6 C 02/28/20 05:52 Pulse 73 02/28/20 05:52 Resp 16 02/28/20 05:52 BP 129/62 02/28/20 09:26 Pulse Ox 96 02/28/20 05:52 Weight - Most Recent: 77.428 kg I&O - Last 24 Hours: Intake & Output 02/27/20 02/28/20 02/28/20 22:59 06:59 14:59 Intake Total 685 Balance 685 Lab Results Last 24 Hours: Laboratory Results - last 24 hr 02/27/20 02/27/20 02/27/20 Range/Units 18:10 18:18 18:53 WBC 15.0 H (4.0-10.0) x10^3/uL RBC 4.26 L (4.5-6.0) x10^6/uL Hgb 13.3 L (14.0-18.0) g/dL Hct 39.2 L (40.0-52.0) % MCV 92.0 (78.0-93.0) fL MCH 31.2 (26.0-32.0) pg MCHC 33.9 (32.0-36.0) g/dL RDW Coeff of Anna 12.9 (10.0-15.0) % Plt Count 186 (130-400) x10^3/uL Neut % (Auto) 73.3 (50.0-80.0) % Lymph % (Auto) 14.2 L (25.0-50.0) % [place] % (Auto) 11.8 H (2.0-11.0) % Eos % (Auto) 0.6 (0.0-4.0) % Baso % (Auto) 0.1 L (0.2-1.2) % PT (9.5-12.3) SEC INR (2.0-3.5) Sodium (136-145) mmol/L Potassium (3.5-5.1) mmol/L Chloride (98-107) mmol/L Carbon Dioxide (21-32) mmol/L Anion Gap (10-20) mmol/L BUN (7-18) mg/dL Creatinine (0.70-1.30) mg/dL Est Cr Clr Drug Dosing mL/min Estimated GFR (MDRD) Glucose (74-106) mg/dL Calcium (8.5-10.1) mg/dL Corrected Calcium (8.5-10.1) mg/dL Magnesium (1.8-2.4) mg/dL Total Bilirubin (0.2-1.0) mg/dL AST (15-37) U/L ALT (16-63) U/L Alkaline Phosphatase (46-116) U/L Troponin I (<=0.056) ng/mL C-Reactive Protein (<=0.9) mg/dL Total Protein (6.4-8.2) g/dL Albumin (3.4-5.0) g/dL Globulin Albumin/Globulin Ratio Amylase (25-115) U/L Lipase (73-393) U/L Urine Color Yellow (YELLOW) Urine Appearance Clear (CLEAR) Urine pH 6.0 (5.0-8.0) Ur Specific [place] 1.010 Urine Protein Negative (NEGATIVE) mg/dL Urine Glucose (UA) Negative (NEGATIVE) mg/dL Urine Ketones Negative (NEGATIVE) mg/dL Urine Occult Blood Small H (NEGATIVE) Urine Nitrite Negative (NEGATIVE) Urine Bilirubin Negative (NEGATIVE) Urine Urobilinogen 0.2 (0.2) EU/dL Ur Leukocyte Esterase Negative (NEGATIVE) Urine RBC 0-5 (NOT SEEN) /HPF Urine WBC 0-5 (NOT SEEN) /HPF Ur Squamous Epith Cells Rare (NEGATIVE) /HPF Urine Bacteria Not seen (NEGATIVE) /HPF Urine Mucus Not seen (NEGATIVE) /LPF SARS CoV-2 RNA Rapid VIRIDIANA Negative (NEGATIVE) 1102/27/20 02/28/20 Range/Units 18:53 18:53 07:42 WBC 10.2 H (4.0-10.0) x10^3/uL RBC 4.07 L (4.5-6.0) x10^6/uL Hgb 12.8 L (14.0-18.0) g/dL Hct 38.1 L (40.0-52.0) % MCV 93.6 H (78.0-93.0) fL MCH 31.4 (26.0-32.0) pg MCHC 33.6 (32.0-36.0) g/dL RDW Coeff of Anna 13.2 (10.0-15.0) % Plt Count 207 (130-400) x10^3/uL Neut % (Auto) 65.1 (50.0-80.0) % Lymph % (Auto) 19.0 L (25.0-50.0) % [place] % (Auto) 15.0 H (2.0-11.0) % Eos % (Auto) 0.6 (0.0-4.0) % Baso % (Auto) 0.3 (0.2-1.2) % PT 10.9 (9.5-12.3) SEC INR 1.0 L (2.0-3.5) Sodium 129 L* (136-145) mmol/L Potassium 3.6 (3.5-5.1) mmol/L Chloride 95 L (98-107) mmol/L Carbon Dioxide 24 (21-32) mmol/L Anion Gap 13.6 (10-20) mmol/L BUN 20 H (7-18) mg/dL Creatinine 1.3 (0.70-1.30) mg/dL Est Cr Clr Drug Dosing 49.91 mL/min Estimated GFR (MDRD) 54 Glucose 116 H (74-106) mg/dL Calcium 8.6 (8.5-10.1) mg/dL Corrected Calcium 9.16 (8.5-10.1) mg/dL Magnesium 1.7 L (1.8-2.4) mg/dL Total Bilirubin 0.7 (0.2-1.0) mg/dL AST 23 (15-37) U/L ALT 13 L (16-63) U/L Alkaline Phosphatase 73 (46-116) U/L Troponin I < 0.017 (<=0.056) ng/mL C-Reactive Protein (<=0.9) mg/dL Total Protein 7.3 (6.4-8.2) g/dL Albumin 3.3 L (3.4-5.0) g/dL Globulin 4.0 Albumin/Globulin Ratio 0.83 Amylase 62 (25-115) U/L Lipase 419 H (73-393) U/L Urine Color (YELLOW) Urine Appearance (CLEAR) Urine pH (5.0-8.0) Ur Specific [place] Urine Protein (NEGATIVE) mg/dL Urine Glucose (UA) (NEGATIVE) mg/dL Urine Ketones (NEGATIVE) mg/dL Urine Occult Blood (NEGATIVE) Urine Nitrite (NEGATIVE) Urine Bilirubin (NEGATIVE) Urine Urobilinogen (0.2) EU/dL Ur Leukocyte Esterase (NEGATIVE) Urine RBC (NOT SEEN) /HPF Urine WBC (NOT SEEN) /HPF Ur Squamous Epith Cells (NEGATIVE) /HPF Urine Bacteria (NEGATIVE) /HPF Urine Mucus (NEGATIVE) /LPF SARS CoV-2 RNA Rapid VIRIDIANA (NEGATIVE) 02/28/20 Range/Units 07:42 WBC (4.0-10.0) x10^3/uL RBC (4.5-6.0) x10^6/uL Hgb (14.0-18.0) g/dL Hct (40.0-52.0) % MCV (78.0-93.0) fL MCH (26.0-32.0) pg MCHC (32.0-36.0) g/dL RDW Coeff of Anna (10.0-15.0) % Plt Count (130-400) x10^3/uL Neut % (Auto) (50.0-80.0) % Lymph % (Auto) (25.0-50.0) % [place] % (Auto) (2.0-11.0) % Eos % (Auto) (0.0-4.0) % Baso % (Auto) (0.2-1.2) % PT (9.5-12.3) SEC INR (2.0-3.5) Sodium 135 L (136-145) mmol/L Potassium 4.0 (3.5-5.1) mmol/L Chloride 101 (98-107) mmol/L Carbon Dioxide 26 (21-32) mmol/L Anion Gap 12.0 (10-20) mmol/L BUN 12 (7-18) mg/dL Creatinine 1.3 (0.70-1.30) mg/dL Est Cr Clr Drug Dosing 49.91 mL/min Estimated GFR (MDRD) 54 Glucose 104 (74-106) mg/dL Calcium 8.2 L (8.5-10.1) mg/dL Corrected Calcium 9.16 (8.5-10.1) mg/dL Magnesium (1.8-2.4) mg/dL Total Bilirubin 0.7 (0.2-1.0) mg/dL AST 23 (15-37) U/L ALT 17 (16-63) U/L Alkaline Phosphatase 59 (46-116) U/L Troponin I (<=0.056) ng/mL C-Reactive Protein 8.3 H (<=0.9) mg/dL Total Protein 6.6 (6.4-8.2) g/dL Albumin 2.8 L (3.4-5.0) g/dL Globulin 3.8 Albumin/Globulin Ratio 0.74 Amylase 51 (25-115) U/L Lipase 132 (73-393) U/L Urine Color (YELLOW) Urine Appearance (CLEAR) Urine pH (5.0-8.0) Ur Specific [place] Urine Protein (NEGATIVE) mg/dL Urine Glucose (UA) (NEGATIVE) mg/dL Urine Ketones (NEGATIVE) mg/dL Urine Occult Blood (NEGATIVE) Urine Nitrite (NEGATIVE) Urine Bilirubin (NEGATIVE) Urine Urobilinogen (0.2) EU/dL Ur Leukocyte Esterase (NEGATIVE) Urine RBC (NOT SEEN) /HPF Urine WBC (NOT SEEN) /HPF Ur Squamous Epith Cells (NEGATIVE) /HPF Urine Bacteria (NEGATIVE) /HPF Urine Mucus (NEGATIVE) /LPF SARS CoV-2 RNA Rapid VIRIDIANA (NEGATIVE) Med Orders - Current: Current Medications Enalapril Maleate (Vasotec) 5 mg PO DAILY [facility] Last Admin: 02/28/20 09:26 Dose: 5 mg Documented by: Hydromorphone HCl (Dilaudid) 1 mg IVPUSH Q2H PRN PRN Reason: Pain (severe 7-10) Last Admin: 02/28/20 03:49 Dose: 1 mg Documented by: Promethazine HCl 12.5 mg/ (Sodium Chloride) 100 mls @ 200 mls/hr IV Q6H PRN PRN Reason: Nausea/Vomiting Sodium Chloride (Normal Saline) 1,000 mls @ 125 mls/hr IV ASDIRECTED DAVINA Last Admin: 02/27/20 21:09 Dose: 125 mls/hr Documented by: Piperacillin Sod/Tazobactam (Sod 3.375 gm/ Sodium Chloride) 100 mls @ 25 mls/hr IV Q8H DAVINA Last Admin: 02/28/20 05:50 Dose: 25 mls/hr Documented by: Ketorolac Tromethamine (Toradol) 15 mg IVPUSH Q6H PRN PRN Reason: Pain (moderate 4-6) Last Admin: 02/28/20 09:25 Dose: 15 mg Documented by: Non-Formulary Medication (Hydrochlorothiazide [Hydrochlorothiazide]) 12.5 mg PO DAILY [facility] Last Admin: 02/28/20 09:26 Dose: 12.5 mg Documented by: Ondansetron HCl (Zofran) 4 mg IVPUSH Q4HR PRN PRN Reason: Nausea Last Admin: 02/28/20 09:25 Dose: 4 mg Documented by: Sodium Chloride (Saline Flush) 10 ml FLUSH ASDIRECTED PRN PRN Reason: Keep Vein Open Last Admin: 02/28/20 09:26 Dose: 10 ml Documented by: Temazepam (Restoril) 15 mg PO BEDTIME PRN PRN Reason: Sleep Last Admin: 02/27/20 21:54 Dose: 15 mg Documented by: Discontinued Medications Al Hydroxide/Mg Hydroxide (Gi Cocktail) 30 ml PO ONETIME ONE Stop: 02/27/20 18:15 Last Admin: 02/27/20 18:48 Dose: 30 ml Documented by: Sodium Chloride (Normal Saline) 1,000 mls @ 999 mls/hr IV ONETIME ONE Stop: 02/27/20 20:30 Last Admin: 02/27/20 20:06 Dose: 999 mls/hr Documented by: Iopamidol (Isovue-300 (61%)) 100 ml IVPUSH ONETIME ONE Stop: 02/27/20 19:44 Last Admin: 02/27/20 20:17 Dose: 100 ml Documented by: Ketorolac Tromethamine (Toradol) 30 mg IVPUSH Q6H PRN PRN Reason: Pain (moderate 4-6) Ondansetron HCl (Zofran) 4 mg IVPUSH ONETIME ONE Stop: 02/27/20 19:31 Last Admin: 02/27/20 20:04 Dose: 4 mg Documented by: Sodium Chloride (Saline Flush) 10 ml FLUSH ASDIRECTED PRN PRN Reason: Keep Vein Open - Exam General: Alert, Oriented, No Acute Distress (Elderly male.) HEENT: Pupils Equal, Mucous Membr. Moist/[place] Neck: Supple Lungs: Clear to Auscultation, Normal Respiratory Effort Cardiovascular: Regular Rate, Regular Rhythm GI/Abdominal Exam: Normal Bowel Sounds, Soft, Tender (with palpation to epigastric region) (Male) Exam: Deferred Back Exam: Normal Inspection Extremities: Normal Inspection, Normal Capillary Refill Skin: Warm, Dry, Intact Neurological: No New Focal Deficit Psy/Mental Status: Alert, Normal Affect, Normal Mood Sepsis Event Note - Evaluation Sepsis Screening Result: No Definite Risk - Focused Exam Vital Signs: Vital Signs Temp Pulse Resp BP BP Pulse Ox 02/28/20 09:26 129/62 02/28/20 05:52 36.6 C 73 16 129/61 96 02/28/20 02:00 36.6 C 80 16 129/67 95 - Problem List Review Problem List Initiated/Reviewed/Updated: Yes - My Orders Last 24 Hours: My Active Orders 02/27/20 18:13 Saline Lock Insert [OM.PC] Stat 02/27/20 18:14 Sodium Chloride 0.9% [Saline Flush] 10 ml FLUSH ASDIRECTED PRN 02/27/20 19:30 Abdomen Pelvis w Cont [CT] Stat Saline Lock Insert [OM.PC] Stat 02/27/20 20:50 Patient Status [ADT] Routine 02/27/20 21:05 Height and Weight [RC] 07 Intake and Output [RC] ,18 August Shower [RC] ASDIRECTED Oxygen Therapy [RC] .PRN Up ad Trice [RC] 08,20 Vital Signs [RC] 06,10,14,18,22,02 HYDROmorphone [Dilaudid] 1 mg IVPUSH Q2H PRN Promethazine [Phenergan] 12.5 mg Sodium Chloride 0.9% [Normal Saline] 100 ml IV Q6H Temazepam [Restoril] 15 mg PO BEDTIME PRN Resuscitation Status Routine 02/27/20 21:06 Notify Provider Vital Signs [RC] ASDIRECTED 02/27/20 21:10 Communication Order [RC] PRN 02/27/20 21:15 Sodium Chloride 0.9% [Normal Saline] 1,000 ml IV ASDIRECTED 02/27/20 22:00 Piperacillin/Tazobactam [Zosyn] 3.375 gm Sodium Chloride 0.9% [Normal Saline] 100 ml IV Q8H 02/27/20 22:32 Ondansetron [Zofran] 4 mg IVPUSH Q4HR PRN 02/27/20 23:04 Ketorolac [Toradol] 15 mg IVPUSH Q6H PRN 02/28/20 08:00 Enalapril [Vasotec] 5 mg PO DAILY hydroCHLOROthiazide [Hydrochlorothiazide] 12.5 mg PO DAILY - Assessment Assessment:: 1)Acute Pancreatitis, Recurrent - Plan Plan:: -Chris Rabago contacted and Dr Schulte accepted the patient for transfer to [facility] at [phone], awaiting bed assignment prior to patient departing this facility. -WBC in down to 10.2 from 15.0 this AM. Lipae improved to 132, from 419. CRP=8.3. CMP stable and Sodium now normal. -Will continue the Zosyn and IV fluids until transferred. -Pain meds and antiemetics prn
[2020-02-28 09:56] VITALS: BP 115/61; PULSE 81
--- NOTE | 2020-02-28 10:20 | CT ---
[id number] CT/CT Abdomen Pelvis W IV EXAM: CT Abdomen Pelvis W IV CLINICAL DATA: ABDOMINAL PAIN COMPARISON: CORRELATION IS MADE WITH JANUARY 24, 2020 FINDINGS: Interstitial lung disease is seen. The liver and spleen show no focal abnormalities There is a mild to moderate edema in the pancreatic bed. This has developed since the last exam There is mild dilatation of the duodenal C-loop. Bilateral renal cysts again are seen Atherosclerotic calcifications are identified The mesenteric vessels demonstrate normal enhancement There is no free fluid or free air The gallbladder is not distended The pelvis shows no mass or adenopathy There is diverticular disease of the sigmoid colon without diverticulitis IMPRESSION: IMAGING FINDINGS SUGGESTING EARLY PANCREATITIS CLINICAL CORRELATION NEEDED CONSIDER FOLLOW-UP REPORT PROVIDED AT TIME OF EXAM Andrae Goetz MD 02/28/20 [id number] Thank you for allowing us to participate in the care of your patient.
== END 2020-02-28 13:52 | disposition short-term general hospital (02) ==
LOC: VM.ED 17:21 → VM.MS 20:50
PROVIDERS: ADMIT Nurse Practitioner Family; ATTEND Nurse Practitioner Family
DX: K85.80 Other acute pancreatitis without necrosis or infection (principal); E78.00 Pure hypercholesterolemia, unspecified; I10 Essential (primary) hypertension; K21.9 Gastro-esophageal reflux disease without esophagitis; Z87.891 Personal history of nicotine dependence; Z20.828 Contact with and (suspected) exposure to other viral communicable diseases; Z91.030 Bee allergy status; Z79.899 Other long term (current) drug therapy; Z79.82 Long term (current) use of aspirin; Z90.49 Acquired absence of other specified parts of digestive tract; Z98.890 Other specified postprocedural states
CPT/HCPCS: 36415; 74177; 80053; 81001; 82150; 83690; 83735; 84484; 85025; 85610; 86140; 93005; 93010; 96361; 96365; 96366; 96374; 96375; 96376; 99217; 99220; 99285; A9270; G0378; J1170; J1885; J2405; J2543; J7030; J7050; Q9967; U0002

== ENCOUNTER 2020-03-13 09:08 | Emergency (ER) | payer MEDICARE, OTHER ==
--- NOTE | 2020-03-13 09:43 | EDM.PDOC ---
ED HPI GENERAL MEDICAL PROBLEM - General Chief Complaint: General Stated Complaint: LIGHT HEADED Time Seen by Provider: 03/13/20 09:15 Source of Information: Reports: Patient History Limitations: Reports: No Limitations - History of Present Illness INITIAL COMMENTS - FREE TEXT/NARRATIVE: Pt. presents to ER with complaints of cough, sore throat, chest congestion since . 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 He states that he has noticed that he has been diaphoretic when he wakes up at night several times in the past several days as well. Complains of mild cough. Denies any chest pain or shortness of breath. Pt. was transferred to [facility] 02/28/2020 for acute idiopathic pancreatitis. Pt. is scheduled to undergo what sounds like an ERCP later this month. Pt. states that he has not been experiencing any abdominal pain and hasn't since he was discharged from [facility]. Today, the patient has no complaints. He is without symptoms at this time. Onset: Today Onset Date: 03/13/20 Location: Reports: Chest, Generalized - Related Data Allergies Allergy/AdvReac Type Severity Reaction Status Date / Time bee venom protein (honey bee) Allergy Severe Anaphylactic Verified 03/13/20 09:22 Shock Home Meds: Home Meds tadalafiL [Cialis] 20 mg PO DAILY PRN 08/12/14 [History] Clobetasol [Clobetasol Propionate 0.05%] 30 gm TOP ASDIRECTED PRN 11/18/17 [History] Desoximetasone [Topicort] 15 gm TP ASDIRECTED PRN 11/18/17 [History] EPINEPHrine [Epipen 2-Jeremias] 0.3 ml IM ASDIRECTED PRN 11/18/17 [History] atorvaSTATin [Lipitor] 40 mg PO DAILY 01/22/20 [History] Aspirin [Halfprin] 81 mg PO DAILY 01/23/20 [History] Cholecalciferol (Vitamin D3) [Vitamin D3] 25 mcg PO DAILY 01/23/20 [History] hydroCHLOROthiazide [Hydrochlorothiazide] 12.5 mg PO DAILY 01/23/20 [History] Omeprazole 20 mg PO DAILY #30 tablet. 01/24/20 [Rx] Sucralfate [Carafate] 1 gm PO QIDACANDBED #120 tablet 01/24/20 [Rx] Enalapril [Vasotec] 5 mg PO DAILY 02/27/20 [History] Past Medical History HEENT History: Reports: Hard of Hearing, Impaired Vision Other HEENT History: hx traumatic subdural hematoma Cardiovascular History: Reports: High Cholesterol, Hypertension Other Cardiovascular History: episodic lightheadedness Other Respiratory History: former smoker Gastrointestinal History: Reports: Colon Polyp, GERD, Pancreatitis Genitourinary History: Reports: Prostate Disorder, UTI, Recurrent Other Musculoskeletal History: plantar faciitis Neurological History: Reports: None Other Psychiatric History: alcoholism in remission Other Endocrine/Metabolic History: impaired fasting glucose Hematologic History: Reports: None Immunologic History: Reports: None Oncologic (Cancer) History: Reports: Prostate Dermatologic History: Reports: Psoriasis - Infectious Disease History Infectious Disease History: Reports: None - Past Surgical History Head Surgeries/Procedures: Reports: None GI Surgical History: Reports: Appendectomy, Colonoscopy Male Surgical History: Reports: Prostate Biopsy, Prostatectomy Other Male Surgeries/Procedures: erectile disfunction Oncologic Surgical History: Reports: Other (See Below) Other Oncologic Surgeries/Procedures: prostatectomy Social & Family History - Family History Family Medical History: Unobtainable Cardiac: Reports: None - Tobacco Use Tobacco Use Status *Q: Unknown Ever Used Tobacco - Caffeine Use Caffeine Use: Reports: Coffee, Soda ED ROS GENERAL - Review of Systems Review Of Systems: See Below Constitutional: Reports: Night Sweats, Diaphoresis HEENT: Reports: Rhinitis, Sinus Problem, Throat Pain Respiratory: Reports: Cough. Denies: Shortness of Breath Cardiovascular: Reports: No Symptoms. Denies: Chest Pain Endocrine: Reports: No Symptoms GI/Abdominal: Reports: No Symptoms. Denies: Abdominal Pain : Reports: No Symptoms Musculoskeletal: Reports: No Symptoms Skin: Reports: No Symptoms Neurological: Reports: No Symptoms Psychiatric: Reports: No Symptoms Hematologic/Lymphatic: Reports: No Symptoms Immunologic: Reports: No Symptoms ED EXAM, GENERAL - Physical Exam Exam: See Below Exam Limited By: No Limitations General Appearance: Alert, WD/WN, No Apparent Distress Eye Exam: Bilateral Eye: EOMI, PERRL Throat/Mouth: Normal Inspection, Normal Lips, Normal Voice, No Airway Compromise Head: Atraumatic, Normocephalic Neck: Normal Inspection, Supple, Non-Tender Respiratory/Chest: No Respiratory Distress, Lungs Clear, Normal Breath Sounds, No Accessory Muscle Use, Chest Non-Tender Cardiovascular: Normal Peripheral Pulses, Regular Rate, Rhythm, No Edema, No Murmur GI/Abdominal: Soft, Non-Tender, No Distention, No Mass (Male) Exam: Deferred Rectal (Males) Exam: Deferred Extremities: Normal Inspection, Normal Range of Motion, Non-Tender, No Pedal Edema, Normal Capillary Refill Neurological: Alert, Oriented, CN II-XII Intact, Normal Cognition, Normal Gait, Normal Reflexes, No Motor/Sensory Deficits Psychiatric: Normal Affect, Normal Mood Skin Exam: Warm, Dry, Intact, Normal Color, No Rash Lymphatic: No Adenopathy Course - Vital Signs Last Recorded V/S: Last Vital Signs Temp 36.6 C 03/13/20 12:47 Pulse 62 03/13/20 12:47 Resp 16 03/13/20 12:47 BP 147/85 H 03/13/20 12:47 Pulse Ox 98 03/13/20 12:47 - Orders/Labs/Meds Orders: Active Orders 24 hr Category Date Time Status EKG Documentation Completion [RC] STAT Care 03/13/20 09:27 Active Labs: Laboratory Tests 03/13/20 03/13/20 03/13/20 Range/Units 09:37 10:05 10:05 WBC 7.6 (4.0-10.0) x10^3/uL RBC 4.39 L (4.5-6.0) x10^6/uL Hgb 13.6 L (14.0-18.0) g/dL Hct 39.9 L (40.0-52.0) % MCV 90.9 (78.0-93.0) fL MCH 31.0 (26.0-32.0) pg MCHC 34.1 (32.0-36.0) g/dL RDW Coeff of [place] 12.0 (10.0-15.0) % Plt Count 256 (130-400) x10^3/uL Neut % (Auto) 67.1 (50.0-80.0) % Lymph % (Auto) 21.8 L (25.0-50.0) % [place] % (Auto) 10.4 (2.0-11.0) % Eos % (Auto) 0.4 (0.0-4.0) % Baso % (Auto) 0.3 (0.2-1.2) % PT 10.9 (9.5-12.3) SEC INR 1.0 L (2.0-3.5) APTT 26.2 (25.6-32.8) SEC Sodium (136-145) mmol/L Potassium (3.5-5.1) mmol/L Chloride (98-107) mmol/L Carbon Dioxide (21-32) mmol/L Anion Gap (10-20) mmol/L BUN (7-18) mg/dL Creatinine (0.70-1.30) mg/dL Est Cr Clr Drug Dosing Estimated GFR (MDRD) Glucose (74-106) mg/dL Calcium (8.5-10.1) mg/dL Corrected Calcium (8.5-10.1) mg/dL Total Bilirubin (0.2-1.0) mg/dL AST (15-37) U/L ALT (16-63) U/L Alkaline Phosphatase (46-116) U/L Troponin I (<=0.056) ng/mL C-Reactive Protein (<=0.9) mg/dL Total Protein (6.4-8.2) g/dL Albumin (3.4-5.0) g/dL Globulin Albumin/Globulin Ratio SARS CoV-2 RNA Rapid VIRIDIANA Positive H (NEGATIVE) 03/13/20 Range/Units 10:05 WBC (4.0-10.0) x10^3/uL RBC (4.5-6.0) x10^6/uL Hgb (14.0-18.0) g/dL Hct (40.0-52.0) % MCV (78.0-93.0) fL MCH (26.0-32.0) pg MCHC (32.0-36.0) g/dL RDW Coeff of [place] (10.0-15.0) % Plt Count (130-400) x10^3/uL Neut % (Auto) (50.0-80.0) % Lymph % (Auto) (25.0-50.0) % [place] % (Auto) (2.0-11.0) % Eos % (Auto) (0.0-4.0) % Baso % (Auto) (0.2-1.2) % PT (9.5-12.3) SEC INR (2.0-3.5) APTT (25.6-32.8) SEC Sodium 132 L (136-145) mmol/L Potassium 3.7 (3.5-5.1) mmol/L Chloride 97 L (98-107) mmol/L Carbon Dioxide 27 (21-32) mmol/L Anion Gap 11.7 (10-20) mmol/L BUN 15 (7-18) mg/dL Creatinine 1.3 (0.70-1.30) mg/dL Est Cr Clr Drug Dosing TNP Estimated GFR (MDRD) 54 Glucose 99 (74-106) mg/dL Calcium 8.6 (8.5-10.1) mg/dL Corrected Calcium 9.16 (8.5-10.1) mg/dL Total Bilirubin 0.5 (0.2-1.0) mg/dL AST 19 (15-37) U/L ALT 16 (16-63) U/L Alkaline Phosphatase 77 (46-116) U/L Troponin I < 0.017 (<=0.056) ng/mL C-Reactive Protein 0.7 (<=0.9) mg/dL Total Protein 7.2 (6.4-8.2) g/dL Albumin 3.3 L (3.4-5.0) g/dL Globulin 3.9 Albumin/Globulin Ratio 0.85 SARS CoV-2 RNA Rapid VIRIDIANA (NEGATIVE) Meds: Medications Discontinued Medications Generic Name Dose Route Start Last Admin Trade Name Freq PRN Reason Stop Dose Admin Bamlanivimab 700 mg/ Sodium 200 mls @ 200 mls/hr 03/13/20 09:50 03/13/20 11:44 Chloride IV 03/13/20 09:51 200 mls/hr ONETIME ONE Administration Protocol Departure - Departure Time of Disposition: 14:20 Disposition: Home, Self-Care 01 Clinical Impression: COVID-19 - Discharge Information Instructions: COVID-19 Frequently Asked Questions, COVID-19, COVID-19: How to Protect Yourself and Others - [facility] Referrals: Trudy Stephens MD [Primary Care Provider] - Forms: ED Department Discharge Additional Instructions: Home to rest. Tylenol and ibuprofen as needed for fever. Make sure you stay hydrated. This illness will likely make you very weak, dizzy and tired. Cough and congestion are likely, too. Return to ER if you have any respiratory difficulty or shortness of breath. Sepsis Event Note (ED) - Evaluation Sepsis Screening Result: No Definite Risk - Focused Exam Vital Signs: Vital Signs Temp Pulse Resp BP Pulse Ox 03/13/20 12:47 36.6 C 62 16 147/85 H 98 03/13/20 09:12 36.2 C 71 16 152/86 H 98 - Problem List Review Problem List Initiated/Reviewed/Updated: Yes - My Orders Last 24 Hours: My Active Orders 03/13/20 09:27 EKG Documentation Completion [RC] STAT - Assessment/Plan Last 24 Hours: My Active Orders 03/13/20 09:27 EKG Documentation Completion [RC] STAT Plan: Home to rest. Tylenol and ibuprofen as needed for fever. Make sure you stay hydrated. This illness will likely make you very weak, dizzy and tired. Cough and congestion are likely, too. Return to ER if you have any respiratory difficulty or shortness of breath.
--- NOTE | 2020-03-13 10:20 | CR ---
[id number] RAD/RAD Chest PA or AP 1V EXAM: RAD Chest PA or AP 1V INDICATION: COUGH. COMPARISON: 2019. DISCUSSION: Cardiomediastinal silhouette is normal in size and contour. Lungs are clear. No pleural effusion or pneumothorax. IMPRESSION: Negative examination of the chest. Adolph Solano MD 03/13/20 1019 Thank you for allowing us to participate in the care of your patient.
[2020-03-13 10:36] LABS: PTT,PARTIAL THROMBOPLSTIN TIME 26.2 SEC (25.6-32.8)
[2020-03-13 10:42] LABS: CHLORIDE,CL 97 mmol/L (98-107); SODIUM,NA 132 mmol/L (136-145)
[2020-03-13 10:45] LABS: ANION GAP 11.7 mmol/L (10-20)
[2020-03-13 14:44] VITALS: BP 147/86; PULSE 69
== END 2020-03-13 14:08 | disposition home or self-care (01) ==
LOC: VM.ED 09:08
DX: U07.1 COVID-19 (principal); E78.00 Pure hypercholesterolemia, unspecified; I10 Essential (primary) hypertension; K21.9 Gastro-esophageal reflux disease without esophagitis; Z79.82 Long term (current) use of aspirin; Z79.899 Other long term (current) drug therapy; Z91.030 Bee allergy status
CPT/HCPCS: 36415; 71045; 80053; 84484; 85025; 85610; 85730; 86140; 87804; 87804-59; 93005; 96365; 99284; 99284-25; J7050; U0002

== ENCOUNTER 2020-03-16 16:30 | Emergency (ER) | payer MEDICARE, OTHER ==
[2020-03-16 16:40] VITALS: BP 159/77; PULSE 74
--- NOTE | 2020-03-16 16:53 | EDM.PDOC ---
<Marge Meredith - Last Filed: 03/16/20 19:05> ED HPI GENERAL MEDICAL PROBLEM - General Chief Complaint: General Time Seen by Provider: 03/16/20 16:53 Source of Information: Reports: Patient, RN, RN Notes Reviewed History Limitations: Reports: No Limitations - History of Present Illness INITIAL COMMENTS - FREE TEXT/NARRATIVE: Pt is a 75 year old male who presents to the ER with c/o increased SOB. Patient states he tested positive for COVID on 03/13. States he has been feeling ill since last . Was feeling weak and light headed. States he has been dealing with acute pancreatitis for the past month or longer. Was seen in the ER and given IV medication for the COVID. He states he was feeling good until yesterday. States his appetite has been OK. Patient states he was feeling well and walked outside for a short walk to get some fresh air. Patient states he became SOB after the walk, also experienced light headedness, feeling shaky. Pt denies body aches, N/V/D, constipation, stomach pain, fever or chills, Chest pains. Patient states he has woken up with sweats during the night, has been taking Tylenol. Patient admits to cough, states he has had a cough for many years, but has been worse the past few weeks. Patient is scheduled for endoscopy on 03/29 for the acute/chronic pancreatitis. Onset: Gradual - Related Data Allergies Allergy/AdvReac Type Severity Reaction Status Date / Time bee venom protein (honey bee) Allergy Severe Anaphylactic Verified 03/16/20 16:48 Shock Home Meds: Home Meds tadalafiL [Cialis] 20 mg PO DAILY PRN 08/12/14 [History] Clobetasol [Clobetasol Propionate 0.05%] 30 gm TOP ASDIRECTED PRN 11/18/17 [History] Desoximetasone [Topicort] 15 gm TP ASDIRECTED PRN 11/18/17 [History] EPINEPHrine [Epipen 2-Jeremias] 0.3 ml IM ASDIRECTED PRN 11/18/17 [History] atorvaSTATin [Lipitor] 40 mg PO DAILY 01/22/20 [History] Aspirin [Halfprin] 81 mg PO DAILY 01/23/20 [History] Cholecalciferol (Vitamin D3) [Vitamin D3] 25 mcg PO DAILY 01/23/20 [History] hydroCHLOROthiazide [Hydrochlorothiazide] 12.5 mg PO DAILY 01/23/20 [History] Omeprazole 20 mg PO DAILY #30 tablet. 01/24/20 [Rx] Sucralfate [Carafate] 1 gm PO QIDACANDBED #120 tablet 01/24/20 [Rx] Enalapril [Vasotec] 5 mg PO DAILY 02/27/20 [History] Past Medical History HEENT History: Reports: Hard of Hearing, Impaired Vision Other HEENT History: hx traumatic subdural hematoma Cardiovascular History: Reports: High Cholesterol, Hypertension Other Cardiovascular History: episodic lightheadedness Other Respiratory History: former smoker Gastrointestinal History: Reports: Colon Polyp, GERD, Pancreatitis Genitourinary History: Reports: Prostate Disorder, UTI, Recurrent Other Musculoskeletal History: plantar faciitis Neurological History: Reports: None Other Psychiatric History: alcoholism in remission Other Endocrine/Metabolic History: impaired fasting glucose Hematologic History: Reports: None Immunologic History: Reports: None Oncologic (Cancer) History: Reports: Prostate Dermatologic History: Reports: Psoriasis - Infectious Disease History Infectious Disease History: Reports: Novel Coronavirus - Past Surgical History Head Surgeries/Procedures: Reports: None GI Surgical History: Reports: Appendectomy, Colonoscopy Male Surgical History: Reports: Prostate Biopsy, Prostatectomy Other Male Surgeries/Procedures: erectile disfunction Oncologic Surgical History: Reports: Other (See Below) Other Oncologic Surgeries/Procedures: prostatectomy Social & Family History - Family History Family Medical History: Unobtainable Cardiac: Reports: None - Tobacco Use Tobacco Use Status *Q: Unknown Ever Used Tobacco - Caffeine Use Caffeine Use: Reports: Coffee, Soda ED ROS GENERAL - Review of Systems Review Of Systems: Comprehensive ROS is negative, except as noted in HPI. ED EXAM, GENERAL - Physical Exam Exam: See Below Exam Limited By: Language Barrier ([place]) General Appearance: Alert, WD/WN, No Apparent Distress Eye Exam: Bilateral Eye: EOMI, Normal Inspection Ears: Normal External Exam, Hearing Loss (bilateral hearing aids) Nose: Normal Inspection Throat/Mouth: Normal Inspection, Normal Voice, No Airway Compromise Head: Atraumatic, Normocephalic Neck: Normal Inspection, Supple, Non-Tender, Full Range of Motion Respiratory/Chest: No Respiratory Distress, Decreased Breath Sounds, Crackles (fine, bases bilaterally) Cardiovascular: Normal Peripheral Pulses, Regular Rate, Rhythm, No Edema, No Gallop, No JVD, No Murmur, No Rub Peripheral Pulses: 2+: Radial (L), Radial (R) GI/Abdominal: Normal Bowel Sounds, Soft, Non-Tender (Male) Exam: Deferred Rectal (Males) Exam: Deferred Back Exam: Normal Inspection, Full Range of Motion, NT Extremities: Normal Inspection, Normal Range of Motion, Non-Tender, Normal Capillary Refill, No Pedal Edema Neurological: Alert, Oriented, CN II-XII Intact, Normal Cognition, Normal Gait, Normal Reflexes, No Motor/Sensory Deficits Psychiatric: Normal Affect, Normal Mood Skin Exam: Warm, Dry, Intact, Normal Color, No Rash Lymphatic: No Adenopathy Departure - Departure Disposition: Home, Self-Care 01 Clinical Impression: Hyponatremia - Discharge Information Instructions: COVID-19 Referrals: PCP,None [Primary Care Provider] - Forms: ED Department Discharge Additional Instructions: Home to rest. If you avoid salty food, you can stop for the time being. You sodium should return to normal once you are no longer sick. Drink powerade or gatorade in addition to water. Continue to quarantine as directed. Recheck in clinic in 10-14 days. Sepsis Event Note (ED) - Evaluation Sepsis Screening Result: No Definite Risk <Landon Booth - Last Filed: 03/16/20 20:09> Course - Vital Signs Last Recorded V/S: Last Vital Signs Temp 36.3 C 03/16/20 16:30 Pulse 74 03/16/20 16:30 Resp 20 03/16/20 16:30 BP 159/77 H 03/16/20 16:30 Pulse Ox 98 03/16/20 16:30 - Orders/Labs/Meds Orders: Active Orders 24 hr Category Date Time Status EKG Documentation Completion [RC] STAT Care 03/16/20 18:51 Active Labs: Laboratory Tests 03/16/20 03/16/20 03/16/20 Range/Units 17:40 17:46 17:46 WBC 10.1 H (4.0-10.0) x10^3/uL RBC 4.61 (4.5-6.0) x10^6/uL Hgb 14.3 (14.0-18.0) g/dL Hct 40.9 (40.0-52.0) % MCV 88.7 (78.0-93.0) fL MCH 31.0 (26.0-32.0) pg MCHC 35.0 (32.0-36.0) g/dL RDW Coeff of Anna 11.8 (10.0-15.0) % Plt Count 308 (130-400) x10^3/uL Neut % (Auto) 69.0 (50.0-80.0) % Lymph % (Auto) 20.6 L (25.0-50.0) % [place] % (Auto) 9.9 (2.0-11.0) % Eos % (Auto) 0.4 (0.0-4.0) % Baso % (Auto) 0.1 L (0.2-1.2) % PT 10.7 (9.5-12.3) SEC INR 1.0 L (2.0-3.5) D-Dimer, Quantitative 0.39 (<=0.58) mg/LFEU Sodium (136-145) mmol/L Potassium (3.5-5.1) mmol/L Chloride (98-107) mmol/L Carbon Dioxide (21-32) mmol/L Anion Gap (10-20) mmol/L BUN (7-18) mg/dL Creatinine (0.70-1.30) mg/dL Est Cr Clr Drug Dosing Estimated GFR (MDRD) Glucose (74-106) mg/dL Calcium (8.5-10.1) mg/dL Corrected Calcium (8.5-10.1) mg/dL Total Bilirubin (0.2-1.0) mg/dL AST (15-37) U/L ALT (16-63) U/L Alkaline Phosphatase (46-116) U/L Lactate Dehydrogenase (85-227) U/L Troponin I (<=0.056) ng/mL C-Reactive Protein (<=0.9) mg/dL NT-Pro-B Natriuret Pep (<=450) pg/mL Total Protein (6.4-8.2) g/dL Albumin (3.4-5.0) g/dL Globulin Albumin/Globulin Ratio TSH, Ultra Sensitive (0.358-3.74) uIU/mL Urine Color Yellow (YELLOW) Urine Appearance Clear (CLEAR) Urine pH 7.5 (5.0-8.0) Ur Specific [place] 1.015 Urine Protein Negative (NEGATIVE) mg/dL Urine Glucose (UA) Negative (NEGATIVE) mg/dL Urine Ketones Negative (NEGATIVE) mg/dL Urine Occult Blood Trace-intact H (NEGATIVE) Urine Nitrite Negative (NEGATIVE) Urine Bilirubin Negative (NEGATIVE) Urine Urobilinogen 1.0 (0.2) EU/dL Ur Leukocyte Esterase Negative (NEGATIVE) Urine RBC 5-10 H (NOT SEEN) /HPF Urine WBC 0-5 (NOT SEEN) /HPF Ur Squamous Epith Cells Not seen (NEGATIVE) /HPF Urine Bacteria Not seen (NEGATIVE) /HPF Urine Mucus Rare H (NEGATIVE) /LPF 03/16/20 03/16/20 Range/Units 17:46 17:46 WBC (4.0-10.0) x10^3/uL RBC (4.5-6.0) x10^6/uL Hgb (14.0-18.0) g/dL Hct (40.0-52.0) % MCV (78.0-93.0) fL MCH (26.0-32.0) pg MCHC (32.0-36.0) g/dL RDW Coeff of [place] (10.0-15.0) % Plt Count (130-400) x10^3/uL Neut % (Auto) (50.0-80.0) % Lymph % (Auto) (25.0-50.0) % [place] % (Auto) (2.0-11.0) % Eos % (Auto) (0.0-4.0) % Baso % (Auto) (0.2-1.2) % PT (9.5-12.3) SEC INR (2.0-3.5) D-Dimer, Quantitative (<=0.58) mg/LFEU Sodium 126 L* (136-145) mmol/L Potassium 3.6 (3.5-5.1) mmol/L Chloride 89 L (98-107) mmol/L Carbon Dioxide 28 (21-32) mmol/L Anion Gap 12.6 (10-20) mmol/L BUN 14 (7-18) mg/dL Creatinine 1.2 (0.70-1.30) mg/dL Est Cr Clr Drug Dosing TNP Estimated GFR (MDRD) 59 Glucose 116 H (74-106) mg/dL Calcium 9.2 (8.5-10.1) mg/dL Corrected Calcium 9.52 (8.5-10.1) mg/dL Total Bilirubin 0.9 (0.2-1.0) mg/dL AST 25 (15-37) U/L ALT 21 (16-63) U/L Alkaline Phosphatase 91 (46-116) U/L Lactate Dehydrogenase 213 (85-227) U/L Troponin I < 0.017 (<=0.056) ng/mL C-Reactive Protein 1.0 H (<=0.9) mg/dL NT-Pro-B Natriuret Pep 199 (<=450) pg/mL Total Protein 8.0 (6.4-8.2) g/dL Albumin 3.6 (3.4-5.0) g/dL Globulin 4.4 Albumin/Globulin Ratio 0.82 TSH, Ultra Sensitive 1.831 (0.358-3.74) uIU/mL Urine Color (YELLOW) Urine Appearance (CLEAR) Urine pH (5.0-8.0) Ur Specific [place] Urine Protein (NEGATIVE) mg/dL Urine Glucose (UA) (NEGATIVE) mg/dL Urine Ketones (NEGATIVE) mg/dL Urine Occult Blood (NEGATIVE) Urine Nitrite (NEGATIVE) Urine Bilirubin (NEGATIVE) Urine Urobilinogen (0.2) EU/dL Ur Leukocyte Esterase (NEGATIVE) Urine RBC (NOT SEEN) /HPF Urine WBC (NOT SEEN) /HPF Ur Squamous Epith Cells (NEGATIVE) /HPF Urine Bacteria (NEGATIVE) /HPF Urine Mucus (NEGATIVE) /LPF - Re-Assessments/Exams Free Text/Narrative Re-Assessment/Exam: Pt. was given a liter or NS here in ER and reports feeling significantly better. Departure - Departure Time of Disposition: 20:08 Sepsis Event Note (ED) - Focused Exam Vital Signs: Vital Signs Temp Pulse Resp BP Pulse Ox 03/16/20 16:30 36.3 C 74 20 159/77 H 98 - Assessment/Plan Plan: Home to rest. If you avoid salty food, you can stop for the time being. You sodium should return to normal once you are no longer sick. Drink powerade or gatorade in addition to water. Continue to quarantine as directed. Recheck in clinic in 10-14 days.
[2020-03-16 18:18] LABS: CHLORIDE,CL 89 mmol/L (98-107)
[2020-03-16 18:20] LABS: ANION GAP 12.6 mmol/L (10-20); SODIUM,NA 126 mmol/L (136-145)
[2020-03-16] MEDS ORDERED: Sodium Chloride 0.9% 1,000 ML IV ONE (18:40)
== END 2020-03-16 20:25 | disposition home or self-care (01) ==
LOC: VM.ED 16:30
DX: E87.1 Hypo-osmolality and hyponatremia (principal); I10 Essential (primary) hypertension; E78.00 Pure hypercholesterolemia, unspecified; K21.9 Gastro-esophageal reflux disease without esophagitis; Z91.030 Bee allergy status; Z79.82 Long term (current) use of aspirin; Z79.899 Other long term (current) drug therapy
CPT/HCPCS: 36415; 80053; 81001; 83615; 83880; 84443; 84484; 85025; 85379; 85610; 86140; 93005; 99284; 99285-25; J7030

== ENCOUNTER 2020-07-14 16:54 | Emergency (ER) | payer MEDICARE, OTHER ==
[2020-07-14 18:03] VITALS: BP 135/70; PULSE 85
--- NOTE | 2020-07-14 18:14 | EDM.PDOC ---
ED HPI GENERAL MEDICAL PROBLEM - General Chief Complaint: General Stated Complaint: LIGHT HEADED AND DIZZY Time Seen by Provider: 07/14/20 17:30 Source of Information: Reports: Patient History Limitations: Reports: No Limitations - History of Present Illness INITIAL COMMENTS - FREE TEXT/NARRATIVE: Federico is a 75 year old male who presents to ER with complaints of lightheadedness, near syncopal episode earlier this afternoon. He was working on a vehicle and when stood up, "everything started to go black" and thought was going to faint. Has had spells like this in past but recovered from them, had a full work up a year ago or so as a result but no underlying cause found. States knows to take slow movements as a result. This episode today "felt different". Was able to recover enough to drive self back to [place]. Didn't feel quite right so felt needed to be evaluated. Reports difficulty catching his breath after event but no chest pain. Was feeling short of breath yet at home but has resolved now. Is feeling "fairly close to normal" now. Has not had any fevers. No nausea or vomiting. Recently treated for "a lung infection by DR. Stephens". Had pain with inspiration with infection and that is now nearly resolved. Relates had a stress test and work up on his heart last year which was normal. Onset: Today, Sudden Duration: Minutes:, Resolved Prior to Arrival Location: Reports: Head Improves with: Reports: Rest Associated Symptoms: Reports: Shortness of Breath, Syncope. Denies: Confusion, Chest Pain, Diaphoresis, Fever/Chills, Loss of Appetite, Malaise, Nausea/Vomiting, Weakness - Related Data Allergies Allergy/AdvReac Type Severity Reaction Status Date / Time bee venom protein (honey bee) Allergy Severe Anaphylactic Verified 07/14/20 17:53 Shock Home Meds: Home Meds tadalafiL [Cialis] 20 mg PO DAILY PRN 08/12/14 [History] Clobetasol [Clobetasol Propionate 0.05%] 1 dose TOP ASDIRECTED PRN 11/18/17 [History] Desoximetasone [Topicort] 15 gm TP ASDIRECTED PRN 11/18/17 [History] EPINEPHrine [Epipen 2-Jeremias] 0.3 ml IM ASDIRECTED PRN 11/18/17 [History] atorvaSTATin [Lipitor] 40 mg PO DAILY 10/09/20 [History] Aspirin [Halfprin] 81 mg PO DAILY 01/23/20 [History] Cholecalciferol (Vitamin D3) [Vitamin D3] 25 mcg PO DAILY 01/23/20 [History] hydroCHLOROthiazide [Hydrochlorothiazide] 12.5 mg PO DAILY 01/23/20 [History] Enalapril [Vasotec] 5 mg PO DAILY 02/27/20 [History] Pantoprazole Sodium [Protonix] 40 mg PO DAILY 07/14/20 [History] Past Medical History HEENT History: Reports: Hard of Hearing, Impaired Vision Other HEENT History: hx traumatic subdural hematoma Cardiovascular History: Reports: High Cholesterol, Hypertension Other Cardiovascular History: episodic lightheadedness Other Respiratory History: former smoker Gastrointestinal History: Reports: Colon Polyp, GERD, Pancreatitis Genitourinary History: Reports: Prostate Disorder, UTI, Recurrent Other Musculoskeletal History: plantar faciitis Neurological History: Reports: None Other Psychiatric History: alcoholism in remission Other Endocrine/Metabolic History: impaired fasting glucose Hematologic History: Reports: None Immunologic History: Reports: None Oncologic (Cancer) History: Reports: Prostate Dermatologic History: Reports: Psoriasis - Infectious Disease History Infectious Disease History: Reports: Novel Coronavirus - Past Surgical History Head Surgeries/Procedures: Reports: None GI Surgical History: Reports: Appendectomy, Colonoscopy Male Surgical History: Reports: Prostate Biopsy, Prostatectomy Other Male Surgeries/Procedures: erectile disfunction Oncologic Surgical History: Reports: Other (See Below) Other Oncologic Surgeries/Procedures: prostatectomy Social & Family History - Family History Family Medical History: Unobtainable Cardiac: Reports: None - Tobacco Use Tobacco Use Status *Q: Former Tobacco User Used Tobacco, but Quit: Yes Month/Year Tobacco Last Used: 2006 - Caffeine Use Caffeine Use: Reports: Coffee, Soda - Recreational Drug Use Recreational Drug Use: No ED ROS GENERAL - Review of Systems Review Of Systems: See Below Constitutional: Reports: Malaise, Weakness. Denies: Fever, Chills, Fatigue, Decreased Appetite HEENT: Denies: Ear Pain, Sinus Problem, Throat Pain, Vertigo Respiratory: Reports: Shortness of Breath. Denies: Cough Cardiovascular: Reports: Lightheadedness. Denies: Chest Pain, Edema Endocrine: Denies: Fatigue GI/Abdominal: Denies: Abdominal Pain, Black Stool, Bloody Stool, Constipation, Diarrhea, Nausea, Vomiting : Reports: No Symptoms Musculoskeletal: Reports: No Symptoms Skin: Reports: No Symptoms Neurological: Reports: Syncope ED EXAM, GENERAL - Physical Exam Exam: See Below Exam Limited By: No Limitations General Appearance: Alert, WD/WN, No Apparent Distress Eye Exam: Bilateral Eye: EOMI, PERRL Ears: Normal External Exam, Normal TMs Nose: Normal Inspection, Normal Mucosa, No Blood Throat/Mouth: Normal Inspection, Normal Oropharynx Head: Normocephalic Neck: Normal Inspection, Supple, Non-Tender Respiratory/Chest: No Respiratory Distress, Lungs Clear, Normal Breath Sounds Cardiovascular: Regular Rate, Rhythm, No Edema GI/Abdominal: Normal Bowel Sounds, Soft, Non-Tender Extremities: Normal Inspection, No Pedal Edema Neurological: Alert, Oriented Skin Exam: Warm, Dry Course - Vital Signs Last Recorded V/S: Last Vital Signs Temp 97.2 F 07/14/20 17:00 Pulse 85 07/14/20 17:00 Resp 16 07/14/20 17:00 BP 135/70 07/14/20 17:00 Pulse Ox 95 07/14/20 17:00 - Orders/Labs/Meds Orders: Active Orders 24 hr Category Date Time Status EKG Documentation Completion [RC] AM Care 07/14/20 17:51 Active Head w Cont [CT] Stat Exams 07/14/20 17:51 Stop Req Labs: Laboratory Tests 07/14/20 07/14/20 07/14/20 Range/Units 18:03 18:03 18:03 WBC 9.5 (4.0-10.0) x10^3/uL RBC 4.48 L (4.5-6.0) x10^6/uL Hgb 13.9 L (14.0-18.0) g/dL Hct 40.4 (40.0-52.0) % MCV 90.2 (78.0-93.0) fL MCH 31.0 (26.0-32.0) pg MCHC 34.4 (32.0-36.0) g/dL RDW Coeff of Anna 12.8 (10.0-15.0) % Plt Count 230 D (130-400) x10^3/uL Neut % (Auto) 70.2 (50.0-80.0) % Lymph % (Auto) 17.7 L (25.0-50.0) % [place] % (Auto) 11.1 H (2.0-11.0) % Eos % (Auto) 0.7 (0.0-4.0) % Baso % (Auto) 0.3 (0.2-1.2) % D-Dimer, Quantitative 0.34 (<=0.58) mg/LFEU Sodium 134 L (136-145) mmol/L Potassium 3.5 (3.5-5.1) mmol/L Chloride 98 (98-107) mmol/L Carbon Dioxide 25 (21-32) mmol/L Anion Gap 14.5 (5-15) mmol/L BUN 20 H (7-18) mg/dL Creatinine 1.4 H (0.70-1.30) mg/dL Est Cr Clr Drug Dosing 45.63 mL/min Estimated GFR (MDRD) 49 Glucose 99 (74-106) mg/dL Calcium 8.8 (8.5-10.1) mg/dL Corrected Calcium 9.52 (8.5-10.1) mg/dL Total Bilirubin 0.7 (0.2-1.0) mg/dL AST 22 (15-37) U/L ALT 15 L (16-63) U/L Alkaline Phosphatase 72 (46-116) U/L Troponin I High Sens 8 (<=76) ng/L C-Reactive Protein 0.3 (<=0.9) mg/dL Total Protein 6.9 (6.4-8.2) g/dL Albumin 3.1 L (3.4-5.0) g/dL Globulin 3.8 Albumin/Globulin Ratio 0.82 Urine Color (YELLOW) Urine Appearance (CLEAR) Urine pH (5.0-8.0) Ur Specific Campbell Urine Protein (NEGATIVE) mg/dL Urine Glucose (UA) (NEGATIVE) mg/dL Urine Ketones (NEGATIVE) mg/dL Urine Occult Blood (NEGATIVE) Urine Nitrite (NEGATIVE) Urine Bilirubin (NEGATIVE) Urine Urobilinogen (0.2) EU/dL Ur Leukocyte Esterase (NEGATIVE) 07/14/20 Range/Units 18:15 WBC (4.0-10.0) x10^3/uL RBC (4.5-6.0) x10^6/uL Hgb (14.0-18.0) g/dL Hct (40.0-52.0) % MCV (78.0-93.0) fL MCH (26.0-32.0) pg MCHC (32.0-36.0) g/dL RDW Coeff of Anna (10.0-15.0) % Plt Count (130-400) x10^3/uL Neut % (Auto) (50.0-80.0) % Lymph % (Auto) (25.0-50.0) % [place] % (Auto) (2.0-11.0) % Eos % (Auto) (0.0-4.0) % Baso % (Auto) (0.2-1.2) % D-Dimer, Quantitative (<=0.58) mg/LFEU Sodium (136-145) mmol/L Potassium (3.5-5.1) mmol/L Chloride (98-107) mmol/L Carbon Dioxide (21-32) mmol/L Anion Gap (5-15) mmol/L BUN (7-18) mg/dL Creatinine (0.70-1.30) mg/dL Est Cr Clr Drug Dosing mL/min Estimated GFR (MDRD) Glucose (74-106) mg/dL Calcium (8.5-10.1) mg/dL Corrected Calcium (8.5-10.1) mg/dL Total Bilirubin (0.2-1.0) mg/dL AST (15-37) U/L ALT (16-63) U/L Alkaline Phosphatase (46-116) U/L Troponin I High Sens (<=76) ng/L C-Reactive Protein (<=0.9) mg/dL Total Protein (6.4-8.2) g/dL Albumin (3.4-5.0) g/dL Globulin Albumin/Globulin Ratio Urine Color Yellow (YELLOW) Urine Appearance Clear (CLEAR) Urine pH 8.5 H (5.0-8.0) Ur Specific Campbell 1.020 Urine Protein Negative (NEGATIVE) mg/dL Urine Glucose (UA) Negative (NEGATIVE) mg/dL Urine Ketones Trace H (NEGATIVE) mg/dL Urine Occult Blood Negative (NEGATIVE) Urine Nitrite Negative (NEGATIVE) Urine Bilirubin Negative (NEGATIVE) Urine Urobilinogen 0.2 (0.2) EU/dL Ur Leukocyte Esterase Negative (NEGATIVE) - Re-Assessments/Exams Free Text/Narrative Re-Assessment/Exam: 07/14/20 1900 Labs are all relatively stable. Mild dehydration. Advised will need to push more fluids. Awaiting CT scan report. Patient stable. Feels good at present 1944-Head CT is negative. Discharge instructions discussed with patient. May need further follow up, ie. carotid ultrasound, echocardiogram, etc if continues to have these episodes. Should follow up with his PCP to discuss Departure - Departure Time of Disposition: 19:49 Disposition: Home, Self-Care 01 Condition: Good Clinical Impression: Near syncope - Discharge Information *PRESCRIPTION DRUG MONITORING PROGRAM REVIEWED*: No *COPY OF PRESCRIPTION DRUG MONITORING REPORT IN PATIENT SHANTANU: No Instructions: Near-Syncope, [id number] Referrals: Trudy Stephens MD [Primary Care Provider] - Forms: ED Department Discharge Additional Instructions: 1. Push fluids 2. Slow cautious movements 3. If have recurring events, may need further work up to include carotid ultrasound and echocardiogram. 4. Follow up with Dr. Stephens early next week Sepsis Event Note (ED) - Evaluation Sepsis Screening Result: No Definite Risk - Focused Exam Vital Signs: Vital Signs Temp Pulse Resp BP Pulse Ox 07/14/20 17:00 97.2 F 85 16 135/70 95 - My Orders Last 24 Hours: My Active Orders 07/14/20 17:51 EKG Documentation Completion [RC] AM Head w Cont [CT] Stat - Assessment/Plan Last 24 Hours: My Active Orders 07/14/20 17:51 EKG Documentation Completion [RC] AM Head w Cont [CT] Stat
[2020-07-14 18:33] LABS: ANION GAP 14.5 mmol/L (5-15)
--- NOTE | 2020-07-14 19:40 | CT ---
[id number] CT/CT Head WO IV EXAM: CT Head WO IV CLINICAL DATA: SYNCOPE PREVIOUS CRANIECTOMY COMPARISON: CORRELATION IS MADE WITH JUNE 08, 2019 FINDINGS: There is no mass or mass effect. There is no hemorrhage or hydrocephalus. There are no extra-axial fluid collections. There are no sites of abnormal attenuation. IMPRESSION: NO PLAIN CT EVIDENCE OF ACUTE INTRACRANIAL PROCESS. Andrae Goetz MD 07/14/20 0440 Thank you for allowing us to participate in the care of your patient.
--- NOTE | 2020-07-14 19:42 | CR ---
[id number] RAD/RAD Chest PA And Lateral EXAM: RAD Chest PA And Lateral CLINICAL DATA: SYNCOPE COMPARISON: CORRELATION IS MADE WITH MARCH 13, 2020 FINDINGS: The lungs are clear. The cardiomediastinal contour is enlarged but stable. The regional bones and soft tissues are unremarkable. IMPRESSION: NO ACUTE PROCESS. Andrae Goetz MD 07/14/201940 Thank you for allowing us to participate in the care of your patient.
== END 2020-07-14 19:58 | disposition home or self-care (01) ==
LOC: VM.ED 16:54
DX: E86.0 Dehydration (principal); K21.9 Gastro-esophageal reflux disease without esophagitis; I10 Essential (primary) hypertension; E78.00 Pure hypercholesterolemia, unspecified; Z86.16 Personal history of COVID-19; Z91.030 Bee allergy status; Z79.82 Long term (current) use of aspirin; Z79.899 Other long term (current) drug therapy; Z87.891 Personal history of nicotine dependence
CPT/HCPCS: 36415; 70450; 70460; 71046; 80053; 81003; 84484; 85025; 85379; 86140; 93005; 99284-25

== ENCOUNTER 2022-07-08 18:05 | Emergency (ER) | payer MEDICARE, OTHER ==
[2022-07-08] MEDS ORDERED: Sodium Chloride 0.9% 10 ML Syringe FLUSH PRN (18:22)
[2022-07-08] MEDS ORDERED: Lactated Ringers 1,000 ML IV ONE ×2 (18:24→18:29)
[2022-07-08 19:04] LABS: CHLORIDE,CL 101 mmol/L (98-107); SODIUM,NA 136 mmol/L (136-145)
[2022-07-08 19:05] VITALS: PULSE 61
[2022-07-08 19:05] LABS: ANION GAP 11.8 mmol/L (5-15); ESTIMATED GFR 51 mL/min (>=60)
[2022-07-08 19:28] LABS: PTT,PARTIAL THROMBOPLSTIN TIME 25.8 SEC (23.6-33.6)
[2022-07-09 00:10] VITALS: BP 142/69
== END 2022-07-08 19:58 | disposition home or self-care (01) ==
LOC: VM.ED 18:05 → SUPCPDRO 18:05 → VM.ED 19:58
DX: E86.0 Dehydration (principal); I25.10 Atherosclerotic heart disease of native coronary artery without angina pectoris; E78.00 Pure hypercholesterolemia, unspecified; I10 Essential (primary) hypertension; Z86.73 Personal history of transient ischemic attack (TIA), and cerebral infarction without residual deficits; Z86.16 Personal history of COVID-19; Z91.030 Bee allergy status; Z79.82 Long term (current) use of aspirin; Z79.899 Other long term (current) drug therapy; Z87.891 Personal history of nicotine dependence
CPT/HCPCS: 71045; 80053; 81001; 82947; 83605; 83735; 84100; 84484; 85025; 85379; 85610; 85730; 86140; 93005; 93010; 96360; 99284; 99285-25; J7120

== ENCOUNTER 2022-08-16 11:19 | Emergency (ER) | payer MEDICARE, OTHER ==
[2022-08-16 11:44] LABS: BASOPHILS PERCENT AUTO 0.5 % (0.2-1.2); EOSINOPHILS PERCENT AUTO 0.3 % (0.0-4.0); HEMATOCRIT 40.6 % (40.0-52.0); HEMOGLOBIN 14.2 g/dL (14.0-18.0); IMMATURE GRAN ABSOLUTE AUTO 0.01 x10^3/uL (0.00-0.07); LYMPHOCYTES ABSOLUTE AUTO 1.5 x10^3/uL (1.0-4.8); LYMPHOCYTES PERCENT AUTO 18.7 % (25.0-50.0); MEAN CORPUSCULAR VOLUME 91.4 fL (78.0-93.0); MONOCYTES ABSOLUTE AUTO 0.6 x10^3/uL (0.0-0.8); MONOCYTES PERCENT AUTO 7.4 % (2.0-11.0); NEUTROPHILS ABSOLUTE AUTO 5.8 x10^3/uL (1.8-7.7); PLATELET COUNT,PLT 217 x10^3/uL (130-400); RED BLOOD CELL COUNT 4.44 x10^6/uL (4.5-6.0)
[2022-08-16 11:48] LABS: APPEARANCE,URINE CLEAR (CLEAR); BILIRUBIN,URINE NEGATIVE (NEGATIVE); COLOR,URINE YELLOW (YELLOW); GLUCOSE,URINE NEGATIVE (NEGATIVE); KETONES,URINE NEGATIVE (NEGATIVE); LEUKOCYTE ESTERASE,URINE NEGATIVE (NEGATIVE); NITRITE,URINE NEGATIVE (NEGATIVE); OCCULT BLOOD,URINE TRACE-INTACT (NEGATIVE); PROTEIN,URINE NEGATIVE (NEGATIVE)
[2022-08-16 11:55] LABS: BACTERIA,URINE NOT SEEN /HPF (NOT SEEN); MUCUS,URINE NOT SEEN /LPF (NOT SEEN); RBC,URINE 0-5 /HPF (NOT SEEN); SQUAMOUS EPITHELIAL CELLS,UR NOT SEEN /HPF (NOT SEEN); WBC,URINE NOT SEEN /HPF (NOT SEEN)
[2022-08-16 12:07] LABS: A/G RATIO 0.92; ALANINE AMINOTRANSFERASE,ALT 15 U/L (16-63); ALBUMIN 3.4 g/dL (3.4-5.0); ALKALINE PHOSPHATASE 66 U/L (46-116); ASPARTATE AMNIOTRANSFERASE,AST 22 U/L (15-37); BILIRUBIN TOTAL 0.6 mg/dL (0.2-1.0); BLOOD UREA NITROGEN,BUN 16 mg/dL (7-18); CARBON DIOXIDE,CO2 25 mmol/L (21-32); CHLORIDE,CL 99 mmol/L (98-107); CREATINE KINASE,CK 180 U/L (39-308); CREATININE 1.5 mg/dL (0.70-1.30); GLUCOSE RANDOM 132 mg/dL (70-99); LACTATE DEHYDROGENASE,LDH 172 U/L (85-227); MAGNESIUM 1.7 mg/dL (1.8-2.4); POTASSIUM,K 3.5 mmol/L (3.5-5.1); PROTEIN TOTAL,TP 7.1 g/dL (6.4-8.2); SODIUM,NA 133 mmol/L (136-145)
[2022-08-16 12:09] LABS: ANION GAP 12.5 mmol/L (5-15); C-REACTIVE PROTEIN < 0.2 mg/dL (<=0.9); ESTIMATED GFR 47 mL/min (>=60)
[2022-08-20 09:32] VITALS: BP 128/65; PULSE 135
== END 2022-08-16 12:45 | disposition home or self-care (01) ==
LOC: VM.ED 11:19
DX: R42 Dizziness and giddiness (principal); E87.1 Hypo-osmolality and hyponatremia; E83.42 Hypomagnesemia; I25.10 Atherosclerotic heart disease of native coronary artery without angina pectoris; E78.00 Pure hypercholesterolemia, unspecified; I10 Essential (primary) hypertension; K21.9 Gastro-esophageal reflux disease without esophagitis; Z86.16 Personal history of COVID-19; Z86.73 Personal history of transient ischemic attack (TIA), and cerebral infarction without residual deficits; Z91.030 Bee allergy status; Z79.82 Long term (current) use of aspirin; Z79.899 Other long term (current) drug therapy; Z87.891 Personal history of nicotine dependence
CPT/HCPCS: 80053; 81001; 82550; 83615; 83735; 84484; 85025; 85379; 86140; 93005; 99285

== ENCOUNTER 2022-08-19 13:56 | Emergency (ER) | payer MEDICARE, OTHER ==
[2022-08-19] MEDS ORDERED: Sodium Chloride 0.9% 10 ML Syringe FLUSH PRN (14:13)
[2022-08-19] MEDS: Lactated Ringers 1,000 ML IV ONE (14:29)
[2022-08-19 14:32] LABS: BASOPHILS PERCENT AUTO 0.4 % (0.2-1.2); EOSINOPHILS PERCENT AUTO 0.2 % (0.0-4.0); HEMATOCRIT 42.1 % (40.0-52.0); HEMOGLOBIN 14.9 g/dL (14.0-18.0); IMMATURE GRAN ABSOLUTE AUTO 0.02 x10^3/uL (0.00-0.07); LYMPHOCYTES ABSOLUTE AUTO 2.4 x10^3/uL (1.0-4.8); LYMPHOCYTES PERCENT AUTO 22.1 % (25.0-50.0); MEAN CORPUSCULAR HEMOGLOBIN 32.3 pg (26.0-32.0); MEAN CORPUSCULAR HGB CONC 35.4 g/dL (32.0-36.0); MEAN CORPUSCULAR VOLUME 91.3 fL (78.0-93.0); MONOCYTES ABSOLUTE AUTO 0.9 x10^3/uL (0.0-0.8); MONOCYTES PERCENT AUTO 8.1 % (2.0-11.0); NEUTROPHILS ABSOLUTE AUTO 7.6 x10^3/uL (1.8-7.7); PLATELET COUNT,PLT 233 x10^3/uL (130-400); RED BLOOD CELL COUNT 4.61 x10^6/uL (4.5-6.0)
[2022-08-19 14:37] LABS: APPEARANCE,URINE CLEAR (CLEAR); BILIRUBIN,URINE NEGATIVE (NEGATIVE); COLOR,URINE YELLOW (YELLOW); GLUCOSE,URINE NEGATIVE (NEGATIVE); KETONES,URINE NEGATIVE (NEGATIVE); LEUKOCYTE ESTERASE,URINE NEGATIVE (NEGATIVE); NITRITE,URINE NEGATIVE (NEGATIVE); OCCULT BLOOD,URINE TRACE-LYSED (NEGATIVE); PH,URINE 7.5 (5.0-8.0); PROTEIN,URINE NEGATIVE (NEGATIVE); UROBILINOGEN,URINE 0.2 EU/dL (0.2)
[2022-08-19 14:39] LABS: BACTERIA,URINE RARE /HPF (NOT SEEN); MUCUS,URINE RARE /LPF (NOT SEEN); WBC,URINE 0-5 /HPF (NOT SEEN)
[2022-08-19 14:51] LABS: A/G RATIO 0.92; ALANINE AMINOTRANSFERASE,ALT 13 U/L (16-63); ALBUMIN 3.6 g/dL (3.4-5.0); ALKALINE PHOSPHATASE 67 U/L (46-116); ASPARTATE AMNIOTRANSFERASE,AST 22 U/L (15-37); BILIRUBIN TOTAL 0.6 mg/dL (0.2-1.0); BLOOD UREA NITROGEN,BUN 12 mg/dL (7-18); CALCIUM 8.8 mg/dL (8.5-10.1); CARBON DIOXIDE,CO2 24 mmol/L (21-32); CHLORIDE,CL 100 mmol/L (98-107); CREATININE 1.3 mg/dL (0.70-1.30); GLUCOSE RANDOM 96 mg/dL (70-99); MAGNESIUM 1.9 mg/dL (1.8-2.4); POTASSIUM,K 3.6 mmol/L (3.5-5.1); PROTEIN TOTAL,TP 7.5 g/dL (6.4-8.2); SODIUM,NA 135 mmol/L (136-145)
[2022-08-19 14:52] LABS: ANION GAP 14.6 mmol/L (5-15); ESTIMATED GFR 56 mL/min (>=60); INR 1.1 (2.0-3.5); PROTHROMBIN TIME 11.3 SEC (9.5-12.2)
[2022-08-19 15:14] LABS: CORONAVIRUS COVID-19 NAA NEGATIVE (NEGATIVE)
[2022-08-19 15:15] LABS: INFLUENZA A NAA NEGATIVE (NEGATIVE); INFLUENZA B NAA NEGATIVE (NEGATIVE); RESPIRATORY SYNCYTIAL VIR NAA NEGATIVE (NEGATIVE)
[2022-08-19] MEDS: Acetaminophen 500 MG Tab PO ONE (16:05)
[2022-08-19 16:12] VITALS: BP 143/87; PULSE 59
== END 2022-08-19 16:09 | disposition home or self-care (01) ==
LOC: VM.ED 13:56
DX: R42 Dizziness and giddiness (principal); G44.86 Cervicogenic headache; I25.10 Atherosclerotic heart disease of native coronary artery without angina pectoris; E78.00 Pure hypercholesterolemia, unspecified; I10 Essential (primary) hypertension; Z86.73 Personal history of transient ischemic attack (TIA), and cerebral infarction without residual deficits; Z91.030 Bee allergy status; Z79.82 Long term (current) use of aspirin; Z86.16 Personal history of COVID-19; Z20.822 Contact with and (suspected) exposure to COVID-19
CPT/HCPCS: 0241U; 70450; 71045; 80053; 81001; 83735; 84484; 85025; 85610; 85730; 93005; 93010; 96360; 99284-25; 99285; A9270-GY; J7120

== ENCOUNTER 2022-08-20 13:47 | Emergency (ER) | payer MEDICARE, OTHER ==
[2022-08-20 14:31] LABS: APPEARANCE,URINE CLEAR (CLEAR); BILIRUBIN,URINE NEGATIVE (NEGATIVE); COLOR,URINE YELLOW (YELLOW); GLUCOSE,URINE NEGATIVE (NEGATIVE); KETONES,URINE NEGATIVE (NEGATIVE); LEUKOCYTE ESTERASE,URINE NEGATIVE (NEGATIVE); NITRITE,URINE NEGATIVE (NEGATIVE); OCCULT BLOOD,URINE TRACE-INTACT (NEGATIVE); PROTEIN,URINE NEGATIVE (NEGATIVE); UROBILINOGEN,URINE 0.2 EU/dL (0.2)
[2022-08-20 14:37] LABS: BACTERIA,URINE RARE /HPF (NOT SEEN); MUCUS,URINE RARE /LPF (NOT SEEN); SQUAMOUS EPITHELIAL CELLS,UR RARE /HPF (NOT SEEN); WBC,URINE 0-5 /HPF (NOT SEEN)
[2022-08-20 15:48] VITALS: BP 164/82; PULSE 52
== END 2022-08-20 15:19 | disposition home or self-care (01) ==
LOC: VM.ED 13:47
DX: H10.32 Unspecified acute conjunctivitis, left eye (principal); B96.89 Other specified bacterial agents as the cause of diseases classified elsewhere; F41.9 Anxiety disorder, unspecified; H57.11 Ocular pain, right eye; R30.0 Dysuria; R35.0 Frequency of micturition; I25.10 Atherosclerotic heart disease of native coronary artery without angina pectoris; E78.00 Pure hypercholesterolemia, unspecified; I10 Essential (primary) hypertension; Z86.73 Personal history of transient ischemic attack (TIA), and cerebral infarction without residual deficits; Z91.030 Bee allergy status; Z79.899 Other long term (current) drug therapy; Z79.82 Long term (current) use of aspirin; Z86.16 Personal history of COVID-19
CPT/HCPCS: 81001; 93005; 93010; 99284; 99285

== ENCOUNTER 2022-08-30 07:19 | Day surgery (SDC) | payer MEDICARE, OTHER ==
[2022-08-30] MEDS: Lactated Ringers 1,000 ML IV SCH (07:35)
[2022-08-30] MEDS ORDERED: Propofol 200 MG/20 ML SDV ONE (08:16)
[2022-08-30] MEDS ORDERED: fentaNYL 100 MCG/2 ML SDV ONE (08:16)
[2022-08-30] MEDS ORDERED: Midazolam 1 MG/ML 2 ML SDV ONE (08:16)
[2022-08-30] MEDS ORDERED: Lidocaine 4% 5 ML Amp ONE (08:35)
[2022-08-30 10:25] VITALS: BP 157/58; PULSE 50
== END 2022-08-30 11:00 | disposition home or self-care (01) ==
LOC: VM.SDS 07:19
PROVIDERS: ATTEND Family Medicine
DX: D12.0 Benign neoplasm of cecum (principal); D12.3 Benign neoplasm of transverse colon; K57.30 Diverticulosis of large intestine without perforation or abscess without bleeding; K44.9 Diaphragmatic hernia without obstruction or gangrene; K31.7 Polyp of stomach and duodenum; K22.70 Barrett's esophagus without dysplasia; K21.00 Gastro-esophageal reflux disease with esophagitis, without bleeding; K85.90 Acute pancreatitis without necrosis or infection, unspecified; C61 Malignant neoplasm of prostate; I25.10 Atherosclerotic heart disease of native coronary artery without angina pectoris; I10 Essential (primary) hypertension; E78.5 Hyperlipidemia, unspecified; G47.33 Obstructive sleep apnea (adult) (pediatric); N32.81 Overactive bladder; R73.01 Impaired fasting glucose; Z79.899 Other long term (current) drug therapy; Z91.030 Bee allergy status; Z90.49 Acquired absence of other specified parts of digestive tract; Z86.010 Personal history of colon polyps; Z86.73 Personal history of transient ischemic attack (TIA), and cerebral infarction without residual deficits; Z87.891 Personal history of nicotine dependence
CPT/HCPCS: 00811; 88305; J2250; J2704; J3010; J7120

== ENCOUNTER 2024-10-15 09:37 | Day surgery (SDC) | payer MEDICARE, OTHER ==
[~2024-10-15 09:37] MED LIST: Propofol 200 MG/20 ML SDV ONE; fentaNYL 100 MCG/2 ML SDV ONE
[2024-10-15] MEDS: Lactated Ringers 1,000 ML IV SCH (09:54)
[2024-10-15 11:25] VITALS: BP 116/59; PULSE 60
== END 2024-10-15 12:20 | disposition home or self-care (01) ==
LOC: VM.SDS 09:37
PROVIDERS: ATTEND Family Medicine
DX: K22.70 Barrett's esophagus without dysplasia (principal); K44.9 Diaphragmatic hernia without obstruction or gangrene; E78.5 Hyperlipidemia, unspecified; I10 Essential (primary) hypertension; I25.10 Atherosclerotic heart disease of native coronary artery without angina pectoris; Z86.16 Personal history of COVID-19; Z91.030 Bee allergy status; Z79.899 Other long term (current) drug therapy; Z87.891 Personal history of nicotine dependence
CPT/HCPCS: 00731; 88305; 99100; J2704; J3010; J3490; J7120

== ENCOUNTER 2024-12-05 09:25 | Emergency (ER) | payer MEDICARE, OTHER ==
[2024-12-05 09:51] VITALS: BP 134/66; PULSE 77
== END 2024-12-05 10:30 | disposition home or self-care (01) ==
LOC: VM.ED 09:25
DX: S83.91XA Sprain of unspecified site of right knee, initial encounter (principal); I25.10 Atherosclerotic heart disease of native coronary artery without angina pectoris; I10 Essential (primary) hypertension; E78.00 Pure hypercholesterolemia, unspecified; K21.9 Gastro-esophageal reflux disease without esophagitis; Z86.16 Personal history of COVID-19; Z90.49 Acquired absence of other specified parts of digestive tract; Z91.030 Bee allergy status; Z79.899 Other long term (current) drug therapy; X58.XXXA Exposure to other specified factors, initial encounter
CPT/HCPCS: 73562-RT; 99283